=== PATIENT | female | born 1940 | race Caucasian/White ===

== ENCOUNTER 2016-08-30 20:17 | Inpatient (IN) | payer MEDICARE, OTHER ==
[~2016-08-30] VITALS: Ht 160 cm; Wt 100.4 kg
--- NOTE | ~2016-08-30 | EKG ---
[place], [place] ELECTROCARDIOGRAM REPORT NAME: CATHY VARGAS UNIT #: [id number] ROOM: 420 DOCTOR: HENRY DALEY MD BIRTHDATE: [birth year] DOS: 08/30/2016 TIME: 2044 hours. Normal sinus rhythm at 64 beats per minute. First degree heart block. Complete right bundle branch block with left anterior hemiblock. An abnormal ECG. No previous tracing is available for comparison. HENRY DALEY MD CM:EKGRPT:ELECTROCARDIOGRAM REPORT 1857 10 HENRY DALEY MD
--- NOTE | ~2016-08-30 | CON ---
[place], [place] REPORT OF CONSULTATION NAME: CATHY VARGAS UNIT #: [id number] ROOM: 420 DOCTOR: HENRY DALEY MD BIRTHDATE: [birth year] DOS: 08/31/2016 HISTORY OF PRESENT ILLNESS: The patient is a 75-year-old [place] woman with a history of paroxysmal atrial fibrillation, chronic kidney disease, heart failure, COPD, GERD, urinary tract infections, colon cancer who has had hysterectomy, cataract surgery, cholecystectomy. She has a bioprosthetic aortic valve. She was sitting and watching the now Presidential inauguration and could not think of the President's name or his 's name and she wanted to say something else and could not come up with it and she would write down something and lost her thought. She had slight weakness in the right arm and the feeling eventually resolved. I was asked to evaluate from cardiac standpoint. The patient did not have any palpitations, dizziness, any loss of consciousness. No chest pain or heaviness in the chest. She has had swelling in the legs for some time now. In the past, she does not recall any orthopnea, only some exertional shortness of breath. No nausea, abdominal pain or blood in the stools. She has had urinary frequency and took medication for this. HOME MEDICATIONS: Include Combivent, albuterol aerosol treatments, Dulera, alprazolam 0.5 mg daily, calcium with vitamin D, carvedilol 6.25 mg b.i.d., cholecalciferol daily, cyclobenzaprine daily, and furosemide 20 mg daily. PHYSICAL EXAMINATION: GENERAL: The patient is very pleasant. She seemed to be alert and giving me a very detailed history. Complexion is normal. There is no finger clubbing. VITAL SIGNS: Pulse is regular at 72 beats per minute, blood pressure 168/58. Most of the systolic blood pressures have been modestly elevated, the highest being 189 and 202 at home. NECK: Normal JVP. No bruits. HEART: There are systolic sounds in the neck, but this is referred murmur from the bioprosthetic aortic valve. There is a grade 2/6 systolic murmur over the aortic area with fairly normal sounding aortic component of the second heart sound. EXTREMITIES: She has 2 to 3+ pedal edema, 1+ pretibial edema. RESPIRATORY: Auscultation of lungs reveal very few crackles in the lower zones. LABORATORY DATA: Chemistry panel is essentially normal. Creatinine 0.82. EGFR is greater than 60. INR 2.7. Hemoglobin 8.6 g/dL. Troponin I levels were normal. DIAGNOSTIC STUDIES: An ECG showed normal sinus rhythm at 64 beats per minute, complete right bundle-branch block and left anterior hemiblock. IMPRESSION: This elderly lady with a history of atrial fibrillation and essential hypertension, had some neurological symptoms, which resolved. CT scan did not show any acute event. The patient may have had a transient ischemic attack or perhaps metabolic problems. [place], [place] REPORT OF CONSULTATION NAME: CATHY VARGAS UNIT #: [id number] ROOM: 420 DOCTOR: HENRY DALEY MD BIRTHDATE: [birth year] She is in normal sinus rhythm and is adequately anticoagulated. Hypertension is somewhat out of control, carvedilol 6.25 mg b.i.d. will be continued, dose should not be increased because her heart rate is around 60-64 beats per minute. I have added lisinopril 5 mg daily and this should tame her blood pressure adequately. I thank you for this consult. HENRY DALEY MD CM:CONSTR:REPORT OF CONSULTATION 2054 10/03/16 1525 interface
[~2016-08-30 20:17] MED LIST: ACCOLATE20 MG PO; ALPHA LIPOIC A200 MG PO; ANTACID PO; APA PO; CENTRUM SILVER1 TA1 PO; CIPROFLOXACIN250 MG PO; CITRACAL + D 311 TAB PO; CITRACAL SOFT1 EACH PO; COMBIVENT1 AR1 IH; COREG3.125 MG PO; COREG6.25 MG PO; COUMADIN3 M1 PO; DERMACINRX5000 UNIT PO; DULE1ARO1 INH; DULER200 INH; FLEXERIL10 MG PO; GAVISCON ES TA1 EACH PO; GAVISCON REGULA1 CT1 PO; GAVISCON500 MG PO; HYDROCODONE BIT1 T11 PO; HYDROCODONE PO; HYDROCODONE-APA1 TA1 PO; IRON 100-VITAM1 EACH PO; K-DUR 1010 MEQ PO; LASIX20 MG PO; LASIX40 MG PO; LEVOFLOXACIN500 MG PO; LIPITOR20 MG PO; LOPRESSOR25 MG PO; MOTRIN800 MG PO; OMEPRAZOLE20 MG PO; POTASSIUM CHLO10 ME2 PO; POTASSIUM CHLO20 ME3 PO; VENTOLIN 02.5 MG/3 M INH; VERAPAMIL240 MG PO; VITAMIN D31000 I2 PO; WARFARIN SOD5 MG PO; XANAX0.25 MG PO; XANAX0.5 MG PO; XARE20MG PO; ZOFRAN ODT4 MG SL
[2016-08-30 20:20] VITALS: BP 198/87
[2016-08-30 20:37] LABS: BASO # 0.1 10*3/uL (0.0-0.1); BASO % 0.7 % (0.0-1.0); EOS # 0.2 10*3/uL (0.0-0.4); EOS % 2.6 % (1.0-4.0); HEMATOCRIT 31.1 % (37.0-47.0); HEMOGLOBIN 10.2 g/dl (12.0-16.0); LYMPH # 2.1 10*3/uL (1.3-4.4); LYMPH % 24.9 % (27.0-41.0); MEAN CELL VOLUME 92.3 fl (81.0-99.0); MEAN CORPUSCULAR HGB 30.3 pg (27.0-31.0); MEAN CORPUSCULAR HGB CONC 32.8 g/dl (33.0-37.0); MEAN PLATELET VOLUME 9.9 fl (9.6-12.3); MONO # 0.8 10*3/uL (0.1-1.0); MONO % 9.9 % (3.0-9.0); NEUT # 5.2 10*3/uL (2.3-7.9); NEUT % 61.8 % (47.0-73.0); PLATELET COUNT AUTOMATED 287 10*3/uL (130-400); RED BLOOD COUNT 3.37 10*6/uL (4.10-5.10); RED CELL DISTRI WIDTH 12.5 % (0-14.5); WHITE BLOOD COUNT 8.4 10*3/uL (4.8-10.8)
[2016-08-30 20:50] LABS: INTERNATIONAL NORM RATIO 2.4 (2.0-3.5); PROTHROMBIN TIME 26.3 SECONDS (9.0-12.4)
[2016-08-30 20:54] LABS: ALBUMIN 3.3 gm/dl (3.1-4.5); ALKALINE PHOSPHATASE 100 U/L (45-117); BILIRUBIN, TOTAL 0.2 mg/dl (0.2-1.0); BUN 13 mg/dl (7-24); C-REACTIVE PROTEIN 0.97 MG/DL (0-0.3); CARBON DIOXIDE 32 mmol/L (21-32); CHLORIDE 99 mmol/L (98-107); CKMB 1.8 ng/ml (0.5-3.6); CPK 110 U/L (26-192); EST GLOM FILT AFRICAN AMERICAN > 60 ml/min; GLUCOSE 105 mg/dL (65-99); POTASSIUM 4.5 mmol/L (3.5-5.1); SGOT/AST 21 IU/L (3-35); SGPT/ALT 21 U/L (12-78); SODIUM 138 mmol/L (136-145); TOTAL PROTEIN 7.1 gm/dL (6.4-8.2)
[2016-08-30 20:58] VITALS: BP 160/74
[2016-08-30 21:02] LABS: TROPONIN I < 0.015 ng/ml (<0.5)
[2016-08-30 21:45] LABS: BILIRUBIN NEGATIVE (NEGATIVE); BLOOD 2+ (NEGATIVE); CLARITY SL CLOUDY (CLEAR); COLOR YELLOW (YELLOW); GLUCOSE NEGATIVE (NEGATIVE); KETONE NEGATIVE (NEGATIVE); LEUKO ESTERASE 2+ (NEGATIVE); NITRITE NEGATIVE (NEGATIVE); PH 5.5 (5.0-9.0); PROTEIN NEGATIVE (NEGATIVE); SPECIFIC GRAVITY 1.025 (1.005-1.030); UROBILINOGEN 0.2 E.U./dl (0.2-1.0)
[2016-08-30] MEDS ORDERED: LASIX20 MG PO (21:52)
[2016-08-30] MEDS ORDERED: KLOR-CON 1010 ME1 PO (21:53)
[2016-08-30 21:59] LABS: BACTERIA 4+; EPITHELIAL CELLS 0-2; URINE REFLEX COMMENT YES (NO); WBC TNTC wbc/hpf (0-5)
[2016-08-30 22:07] VITALS: BP 141/48
[2016-08-30 23:05] VITALS: BP 115/76
[2016-08-31] VITALS (7 sets, daily range): BP systolic 122–189; BP diastolic 51–82
[2016-08-31 06:44] LABS: BASO % 0.5 % (0.0-1.0); EOS # 0.2 10*3/uL (0.0-0.4); HEMATOCRIT 26.8 % (37.0-47.0); HEMOGLOBIN 8.6 g/dl (12.0-16.0); LYMPH # 1.6 10*3/uL (1.3-4.4); LYMPH % 28.1 % (27.0-41.0); MEAN CELL VOLUME 92.7 fl (81.0-99.0); MEAN CORPUSCULAR HGB 29.8 pg (27.0-31.0); MEAN CORPUSCULAR HGB CONC 32.1 g/dl (33.0-37.0); MEAN PLATELET VOLUME 9.9 fl (9.6-12.3); MONO # 0.6 10*3/uL (0.1-1.0); MONO % 10.2 % (3.0-9.0); NEUT # 3.3 10*3/uL (2.3-7.9); NEUT % 57.8 % (47.0-73.0); PLATELET COUNT AUTOMATED 229 10*3/uL (130-400); RED BLOOD COUNT 2.89 10*6/uL (4.10-5.10); RED CELL DISTRI WIDTH 12.6 % (0-14.5); WHITE BLOOD COUNT 5.7 10*3/uL (4.8-10.8)
[2016-08-31 07:03] LABS: INTERNATIONAL NORM RATIO 2.7 (2.0-3.5); PROTHROMBIN TIME 29.7 SECONDS (9.0-12.4)
[2016-08-31 07:12] LABS: BUN 11 mg/dl (7-24); CARBON DIOXIDE 31 mmol/L (21-32); CHLORIDE 102 mmol/L (98-107); CHOLESTEROL 168 mg/dL (<200); EST GLOM FILT AFRICAN AMERICAN > 60 ml/min; FREE T4 1.34 ng/dl (0.76-1.46); GLUCOSE 89 mg/dL (65-99); HDL CHOLESTEROL 64 mg/dl (40-60); LDL CHOLESTEROL 89 mg/dL (9-159); MAGNESIUM 2.1 mg/dL (1.5-2.1); POTASSIUM 3.7 mmol/L (3.5-5.1); SODIUM 139 mmol/L (136-145); TRIGLYCERIDES 74 mg/dl (<150); VLDL CHOLESTEROL 15 mg/dL (6-40)
[2016-08-31 07:18] LABS: HEMOGLOBIN A1c 5.5 % (4.8-5.6)
[2016-08-31 07:50] LABS: FOLIC ACID 8.74 ng/mL (>5.38)
[2016-09-26] MEDS ORDERED: LOSARTAN POTASS25 M1 PO ×2 (15:32→17:52)
[2016-09-26] MEDS ORDERED: AMOX/CLAV POT 81 TAB PO (15:32)
[2016-09-26] MEDS ORDERED: CYCLOBENZAPRINE5 M3 PO (17:41)
[2016-09-30] MEDS ORDERED: ZYVOX600 MG PO (13:26)
== END 2016-08-31 23:57 | disposition left against medical advice (07) | DRG 689 ==
LOC: ED 20:17 → EDHOLD 22:29 → 4E 23:00
PROVIDERS: Emergency Medicine; Internal Medicine
DX: N39.0 Urinary tract infection, site not specified (principal); G93.40 Encephalopathy, unspecified; E44.0 Moderate protein-calorie malnutrition; I48.0 Paroxysmal atrial fibrillation; I11.0 Hypertensive heart disease with heart failure; I50.32 Chronic diastolic (congestive) heart failure; J44.9 Chronic obstructive pulmonary disease, unspecified; D68.59 Other primary thrombophilia; I67.82 Cerebral ischemia; E66.9 Obesity, unspecified; I16.1 Hypertensive emergency; D72.810 Lymphocytopenia; R73.9 Hyperglycemia, unspecified; G44.1 Vascular headache, not elsewhere classified; R70.0 Elevated erythrocyte sedimentation rate; D64.9 Anemia, unspecified; K21.9 Gastro-esophageal reflux disease without esophagitis; F41.9 Anxiety disorder, unspecified; Z88.2 Allergy status to sulfonamides; Z88.5 Allergy status to narcotic agent; Z88.8 Allergy status to other drugs, medicaments and biological substances; Z88.1 Allergy status to other antibiotic agents; Z90.710 Acquired absence of both cervix and uterus; Z90.49 Acquired absence of other specified parts of digestive tract; Z98.42 Cataract extraction status, left eye; Z98.41 Cataract extraction status, right eye; Z95.1 Presence of aortocoronary bypass graft; Z79.899 Other long term (current) drug therapy; Z79.01 Long term (current) use of anticoagulants; Z82.49 Family history of ischemic heart disease and other diseases of the circulatory system; Z80.0 Family history of malignant neoplasm of digestive organs; Z68.39 Body mass index [BMI] 39.0-39.9, adult

== ENCOUNTER 2016-09-07 13:08 | Inpatient (IN) | payer MEDICARE, OTHER ==
[~2016-09-07] VITALS: Ht 160 cm; Wt 99.3 kg
--- NOTE | ~2016-09-07 | EKG ---
[place], [place] ELECTROCARDIOGRAM REPORT NAME: CATHY VARGAS UNIT #: [id number] ROOM: 402 DOCTOR: HENRY DALEY MD BIRTHDATE: [birth year] DOS: 09/07/2016 TIME: 1400 hours. 1. Atrial fibrillation with a ventricular rate of 73 beats per minute. 2. Incomplete right bundle-branch block with left anterior hemiblock. 3. An abnormal ECG. 4. No previous tracing is available for comparison. HENRY DALEY MD CM:EKGRPT:ELECTROCARDIOGRAM REPORT 05 33 HENRY DALEY MD
[~2016-09-07 13:08] MED LIST changes: +KLOR-CON 1010 ME1 PO
[2016-09-07 13:47] VITALS: BP 186/70
[2016-09-07] MEDS ORDERED: CENTRUM SILVER1 EACH PO (13:52)
[2016-09-07 14:10] LABS: INTERNATIONAL NORM RATIO 1.5 (2.0-3.5); PROTHROMBIN TIME 16.1 SECONDS (9.0-12.4)
[2016-09-07 14:19] LABS: ALBUMIN 3.2 gm/dl (3.1-4.5); ALKALINE PHOSPHATASE 75 U/L (45-117); BILIRUBIN, TOTAL 0.3 mg/dl (0.2-1.0); BUN 13 mg/dl (7-24); CARBON DIOXIDE 33 mmol/L (21-32); CHLORIDE 99 mmol/L (98-107); EST GLOM FILT AFRICAN AMERICAN > 60 ml/min; GLUCOSE 99 mg/dL (65-99); MAGNESIUM 2.1 mg/dL (1.5-2.1); POTASSIUM 3.6 mmol/L (3.5-5.1); SGOT/AST 12 IU/L (3-35); SGPT/ALT 20 U/L (12-78); SODIUM 141 mmol/L (136-145); TOTAL PROTEIN 7.1 gm/dL (6.4-8.2); TROPONIN I 0.025 ng/ml (<0.5)
[2016-09-07 14:22] LABS: BASO # 0.1 10*3/uL (0.0-0.1); BASO % 0.8 % (0.0-1.0); EOS # 0.1 10*3/uL (0.0-0.4); EOS % 1.8 % (1.0-4.0); HEMOGLOBIN 10.2 g/dl (12.0-16.0); LYMPH % 25.3 % (27.0-41.0); MEAN CELL VOLUME 92.2 fl (81.0-99.0); MEAN CORPUSCULAR HGB 29.4 pg (27.0-31.0); MEAN CORPUSCULAR HGB CONC 31.9 g/dl (33.0-37.0); MEAN PLATELET VOLUME 9.2 fl (9.6-12.3); MONO # 0.7 10*3/uL (0.1-1.0); MONO % 8.9 % (3.0-9.0); NEUT # 4.9 10*3/uL (2.3-7.9); NEUT % 62.9 % (47.0-73.0); PLATELET COUNT AUTOMATED 336 10*3/uL (130-400); RED BLOOD COUNT 3.47 10*6/uL (4.10-5.10); RED CELL DISTRI WIDTH 12.6 % (0-14.5); WHITE BLOOD COUNT 7.8 10*3/uL (4.8-10.8)
[2016-09-07 15:40] VITALS: BP 152/63
[2016-09-07 16:00] VITALS: BP 156/56
[2016-09-07 16:15] VITALS: BP 168/64
[2016-09-07 18:31] LABS: CKMB 1.8 ng/ml (0.5-3.6); TROPONIN I 0.028 ng/ml (<0.5)
[2016-09-07 19:26] LABS: BILIRUBIN 1+ (NEGATIVE); BLOOD TRACE-INTACT (NEGATIVE); CLARITY SL CLOUDY (CLEAR); COLOR YELLOW (YELLOW); GLUCOSE NEGATIVE (NEGATIVE); KETONE TRACE (NEGATIVE); LEUKO ESTERASE 2+ (NEGATIVE); NITRITE NEGATIVE (NEGATIVE); PROTEIN TRACE (NEGATIVE); UROBILINOGEN 0.2 E.U./dl (0.2-1.0)
[2016-09-07 19:36] LABS: WBC TNTC wbc/hpf (0-5)
[2016-09-07 19:37] LABS: URINE REFLEX COMMENT YES (NO)
[2016-09-07 20:00] VITALS: BP 136/89
[2016-09-08] VITALS: BP 160/81
[2016-09-08 00:54] LABS: CKMB 1.6 ng/ml (0.5-3.6); TROPONIN I 0.031 ng/ml (<0.5)
[2016-09-08 06:24] LABS: BASO # 0.1 10*3/uL (0.0-0.1); BASO % 0.8 % (0.0-1.0); EOS # 0.1 10*3/uL (0.0-0.4); EOS % 1.8 % (1.0-4.0); HEMATOCRIT 28.3 % (37.0-47.0); HEMOGLOBIN 9.2 g/dl (12.0-16.0); LYMPH # 2.2 10*3/uL (1.3-4.4); LYMPH % 30.5 % (27.0-41.0); MEAN CELL VOLUME 91.3 fl (81.0-99.0); MEAN CORPUSCULAR HGB 29.7 pg (27.0-31.0); MEAN CORPUSCULAR HGB CONC 32.5 g/dl (33.0-37.0); MEAN PLATELET VOLUME 8.9 fl (9.6-12.3); MONO # 0.7 10*3/uL (0.1-1.0); MONO % 9.6 % (3.0-9.0); NEUT # 4.1 10*3/uL (2.3-7.9); NEUT % 57.2 % (47.0-73.0); PLATELET COUNT AUTOMATED 271 10*3/uL (130-400); RED CELL DISTRI WIDTH 12.7 % (0-14.5); WHITE BLOOD COUNT 7.1 10*3/uL (4.8-10.8)
[2016-09-08 06:28] LABS: INTERNATIONAL NORM RATIO 1.5 (2.0-3.5); PROTHROMBIN TIME 16.1 SECONDS (9.0-12.4)
[2016-09-08 06:36] LABS: CKMB 1.4 ng/ml (0.5-3.6); TROPONIN I 0.023 ng/ml (<0.5)
[2016-09-08 06:53] LABS: ALKALINE PHOSPHATASE 64 U/L (45-117); BILIRUBIN, TOTAL 0.3 mg/dl (0.2-1.0); BUN 16 mg/dl (7-24); CARBON DIOXIDE 32 mmol/L (21-32); CHLORIDE 98 mmol/L (98-107); CHOLESTEROL 173 mg/dL (<200); EST GLOM FILT AFRICAN AMERICAN > 60 ml/min; FREE T4 1.35 ng/dl (0.76-1.46); GLUCOSE 93 mg/dL (65-99); HDL CHOLESTEROL 66 mg/dl (40-60); LDL CHOLESTEROL 91 mg/dL (9-159); MAGNESIUM 2.5 mg/dL (1.5-2.1); PHOSPHOROUS 3.9 mg/dL (2.5-4.9); POTASSIUM 3.9 mmol/L (3.5-5.1); SGOT/AST 14 IU/L (3-35); SGPT/ALT 15 U/L (12-78); SODIUM 138 mmol/L (136-145); TOTAL PROTEIN 6.3 gm/dL (6.4-8.2); TRIGLYCERIDES 81 mg/dl (<150); VLDL CHOLESTEROL 16 mg/dL (6-40)
[2016-09-08 07:38] LABS: VITAMIN D, 25-HYDROXY 52.1 ng/mL (30-100)
[2016-09-08 07:39] LABS: FOLIC ACID 8.61 ng/mL (>5.38)
[2016-09-08 07:58] LABS: HEMOGLOBIN A1c 5.2 % (4.8-5.6)
[2016-09-08 08:00] VITALS: BP 147/73
[2016-09-08] MEDS ORDERED: COUMADIN4 M2 PO (10:32)
[2016-09-08] MEDS ORDERED: ASPIRIN CHEWABL81 MG PO (10:37)
[2016-09-08 12:00] VITALS: BP 137/57
[2016-09-26] MEDS ORDERED: AMOX/CLAV POT 81 TAB PO (15:32)
[2016-09-26] MEDS ORDERED: LOSARTAN POTASS25 M1 PO ×2 (15:32→17:52)
[2016-09-26] MEDS ORDERED: CYCLOBENZAPRINE5 M3 PO (17:41)
[2016-09-30] MEDS ORDERED: ZYVOX600 MG PO (13:26)
== END 2016-09-08 16:09 | disposition home or self-care (01) | DRG 69 ==
LOC: ED 13:08 → EDHOLD 14:54 → 4E 15:35
PROVIDERS: Hospitalist; Student in an Organized Health Care Education/Training Program
DX: G45.9 Transient cerebral ischemic attack, unspecified (principal); E44.0 Moderate protein-calorie malnutrition; D68.59 Other primary thrombophilia; I50.32 Chronic diastolic (congestive) heart failure; J44.9 Chronic obstructive pulmonary disease, unspecified; I48.0 Paroxysmal atrial fibrillation; N39.0 Urinary tract infection, site not specified; I13.0 Hypertensive heart and chronic kidney disease with heart failure and stage 1 through stage 4 chronic kidney disease, or unspecified chronic kidney disease; E66.9 Obesity, unspecified; I16.1 Hypertensive emergency; K21.9 Gastro-esophageal reflux disease without esophagitis; F41.0 Panic disorder [episodic paroxysmal anxiety]; F41.9 Anxiety disorder, unspecified; K57.90 Diverticulosis of intestine, part unspecified, without perforation or abscess without bleeding; D64.9 Anemia, unspecified; N18.9 Chronic kidney disease, unspecified; Z85.038 Personal history of other malignant neoplasm of large intestine; Z90.49 Acquired absence of other specified parts of digestive tract; Z90.710 Acquired absence of both cervix and uterus; Z98.49 Cataract extraction status, unspecified eye; Z82.49 Family history of ischemic heart disease and other diseases of the circulatory system; Z88.8 Allergy status to other drugs, medicaments and biological substances; Z88.2 Allergy status to sulfonamides; Z79.899 Other long term (current) drug therapy; Z79.01 Long term (current) use of anticoagulants; Z80.0 Family history of malignant neoplasm of digestive organs; Z98.890 Other specified postprocedural states; Z68.39 Body mass index [BMI] 39.0-39.9, adult

== ENCOUNTER → 2017-02-24 | Outpatient (CLI) | payer MEDICARE, OTHER ==
[~2017-02-24] MED LIST changes: +AMOX/CLAV POT 81 TAB PO; +ASPIRIN CHEWABL81 MG PO; +CENTRUM SILVER1 EACH PO; +COUMADIN4 M2 PO; +CYCLOBENZAPRINE5 M3 PO; +LOSARTAN POTASS25 M1 PO; +ZYVOX600 MG PO
[2017-02-24 08:48] LABS: BASO # 0.1 10*3/uL (0.0-0.1); BASO % 0.8 % (0.0-1.0); EOS # 0.2 10*3/uL (0.0-0.4); EOS % 3.1 % (1.0-4.0); HEMATOCRIT 29.2 % (37.0-47.0); HEMOGLOBIN 9.4 g/dl (12.0-16.0); LYMPH # 1.9 10*3/uL (1.3-4.4); LYMPH % 29.9 % (27.0-41.0); MEAN CELL VOLUME 91.3 fl (81.0-99.0); MEAN CORPUSCULAR HGB 29.4 pg (27.0-31.0); MEAN CORPUSCULAR HGB CONC 32.2 g/dl (33.0-37.0); MONO # 0.5 10*3/uL (0.1-1.0); MONO % 7.6 % (3.0-9.0); NEUT # 3.8 10*3/uL (2.3-7.9); NEUT % 58.3 % (47.0-73.0); PLATELET COUNT AUTOMATED 279 10*3/uL (130-400); RED CELL DISTRI WIDTH 12.4 % (0-14.5); WHITE BLOOD COUNT 6.5 10*3/uL (4.8-10.8)
[2017-02-24 09:13] LABS: ALBUMIN 2.9 gm/dl (3.1-4.5); ALKALINE PHOSPHATASE 69 U/L (45-117); BILIRUBIN, DIRECT < 0.1 mg/dL (0.0-0.2); BILIRUBIN, TOTAL 0.3 mg/dl (0.2-1.0); BUN 10 mg/dl (7-24); CARBON DIOXIDE 31 mmol/L (21-32); CHLORIDE 100 mmol/L (98-107); EST GLOM FILT AFRICAN AMERICAN > 60 ml/min; GLUCOSE 85 mg/dL (65-99); IRON 52 ug/dL (50-170); POTASSIUM 4.3 mmol/L (3.5-5.1); SGOT/AST 17 IU/L (3-35); SGPT/ALT 16 U/L (12-78); SODIUM 136 mmol/L (136-145)
== END | disposition home or self-care (01) ==
LOC: LAB 07:57
PROVIDERS: Family Medicine
DX: D64.9 Anemia, unspecified (principal)

== ENCOUNTER → 2017-03-10 | Outpatient (CLI) | payer MEDICARE, OTHER ==
[2017-03-10 07:57] LABS: BASO # 0.1 10*3/uL (0.0-0.1); BASO % 0.5 % (0.0-1.0); EOS # 0.2 10*3/uL (0.0-0.4); EOS % 2.4 % (1.0-4.0); HEMATOCRIT 28.9 % (37.0-47.0); HEMOGLOBIN 9.4 g/dl (12.0-16.0); LYMPH # 1.8 10*3/uL (1.3-4.4); LYMPH % 19.3 % (27.0-41.0); MEAN CELL VOLUME 90.9 fl (81.0-99.0); MEAN CORPUSCULAR HGB 29.6 pg (27.0-31.0); MEAN CORPUSCULAR HGB CONC 32.5 g/dl (33.0-37.0); MEAN PLATELET VOLUME 9.1 fl (9.6-12.3); MONO # 0.8 10*3/uL (0.1-1.0); MONO % 8.7 % (3.0-9.0); NEUT # 6.5 10*3/uL (2.3-7.9); NEUT % 68.8 % (47.0-73.0); PLATELET COUNT AUTOMATED 316 10*3/uL (130-400); RED BLOOD COUNT 3.18 10*6/uL (4.10-5.10); RED CELL DISTRI WIDTH 12.1 % (0-14.5); WHITE BLOOD COUNT 9.5 10*3/uL (4.8-10.8)
== END | disposition home or self-care (01) ==
LOC: LAB 07:35
PROVIDERS: Internal Medicine Hematology & Oncology
DX: N18.9 Chronic kidney disease, unspecified (principal); D63.8 Anemia in other chronic diseases classified elsewhere

== ENCOUNTER → 2017-03-11 | Outpatient (CLI) | payer MEDICARE, OTHER | END | disposition home or self-care (01) | LOC: CARD 02:09 | DX: I10 Essential (primary) hypertension (principal); Q21.1 Atrial septal defect ==

== ENCOUNTER → 2017-04-15 | Outpatient (CLI) | payer MEDICARE, OTHER | END | disposition home or self-care (01) | LOC: US 04-11 12:30 | DX: I10 Essential (primary) hypertension (principal); I65.23 Occlusion and stenosis of bilateral carotid arteries ==

== ENCOUNTER → 2017-07-14 | Outpatient (CLI) | payer MEDICARE, OTHER ==
[2017-07-14 07:50] LABS: BASO # 0.1 10*3/uL (0.0-0.1); BASO % 0.8 % (0.0-1.0); EOS # 0.3 10*3/uL (0.0-0.4); EOS % 3.4 % (1.0-4.0); HEMATOCRIT 27.4 % (37.0-47.0); HEMOGLOBIN 8.6 g/dl (12.0-16.0); LYMPH # 2.3 10*3/uL (1.3-4.4); LYMPH % 28.9 % (27.0-41.0); MEAN CELL VOLUME 91.9 fl (81.0-99.0); MEAN CORPUSCULAR HGB 28.9 pg (27.0-31.0); MEAN CORPUSCULAR HGB CONC 31.4 g/dl (33.0-37.0); MEAN PLATELET VOLUME 9.1 fl (9.6-12.3); MONO # 0.7 10*3/uL (0.1-1.0); MONO % 8.3 % (3.0-9.0); NEUT # 4.6 10*3/uL (2.3-7.9); NEUT % 58.3 % (47.0-73.0); PLATELET COUNT AUTOMATED 269 10*3/uL (130-400); RED BLOOD COUNT 2.98 10*6/uL (4.10-5.10); RED CELL DISTRI WIDTH 13.2 % (0-14.5); WHITE BLOOD COUNT 7.8 10*3/uL (4.8-10.8)
== END | disposition home or self-care (01) ==
LOC: LAB 07:26
PROVIDERS: Family Medicine
DX: D64.9 Anemia, unspecified (principal)

== ENCOUNTER → 2017-07-28 | Outpatient (CLI) | payer MEDICARE, OTHER ==
[2017-07-28 08:15] LABS: BASO % 0.6 % (0.0-1.0); EOS # 0.2 10*3/uL (0.0-0.4); EOS % 3.1 % (1.0-4.0); HEMATOCRIT 26.3 % (37.0-47.0); HEMOGLOBIN 8.5 g/dl (12.0-16.0); LYMPH # 2.2 10*3/uL (1.3-4.4); LYMPH % 34.4 % (27.0-41.0); MEAN CELL VOLUME 89.8 fl (81.0-99.0); MEAN CORPUSCULAR HGB CONC 32.3 g/dl (33.0-37.0); MEAN PLATELET VOLUME 9.6 fl (9.6-12.3); MONO # 0.6 10*3/uL (0.1-1.0); MONO % 8.7 % (3.0-9.0); NEUT # 3.4 10*3/uL (2.3-7.9); PLATELET COUNT AUTOMATED 274 10*3/uL (130-400); RED BLOOD COUNT 2.93 10*6/uL (4.10-5.10); RED CELL DISTRI WIDTH 13.2 % (0-14.5); WHITE BLOOD COUNT 6.5 10*3/uL (4.8-10.8)
[2017-07-28 08:56] LABS: BUN 12 mg/dl (7-24); CHLORIDE 98 mmol/L (98-107); POTASSIUM 4.5 mmol/L (3.5-5.1); SODIUM 135 mmol/L (136-145)
[2017-07-28 08:58] LABS: CREATININE 0.92 mg/dL (0.55-1.02)
== END ==
LOC: LAB 07:14
PROVIDERS: Family Medicine
DX: R60.9 Edema, unspecified (principal)

== ENCOUNTER → 2017-09-15 | Outpatient (CLI) | payer MEDICARE, OTHER ==
[2017-09-15 08:16] LABS: BASO # 0.1 10*3/uL (0.0-0.1); BASO % 0.6 % (0.0-1.0); EOS # 0.2 10*3/uL (0.0-0.4); EOS % 2.4 % (1.0-4.0); HEMATOCRIT 28.1 % (37.0-47.0); HEMOGLOBIN 8.9 g/dl (12.0-16.0); LYMPH # 2.2 10*3/uL (1.3-4.4); LYMPH % 28.5 % (27.0-41.0); MEAN CELL VOLUME 91.8 fl (81.0-99.0); MEAN CORPUSCULAR HGB 29.1 pg (27.0-31.0); MEAN CORPUSCULAR HGB CONC 31.7 g/dl (33.0-37.0); MEAN PLATELET VOLUME 9.6 fl (9.6-12.3); MONO # 0.6 10*3/uL (0.1-1.0); MONO % 7.9 % (3.0-9.0); NEUT # 4.7 10*3/uL (2.3-7.9); NEUT % 60.1 % (47.0-73.0); PLATELET COUNT AUTOMATED 299 10*3/uL (130-400); RED BLOOD COUNT 3.06 10*6/uL (4.10-5.10); RED CELL DISTRI WIDTH 13.3 % (0-14.5); WHITE BLOOD COUNT 7.8 10*3/uL (4.8-10.8)
[2017-09-15 08:50] LABS: ALBUMIN 3.1 gm/dl (3.1-4.5); ALKALINE PHOSPHATASE 70 U/L (45-117); BILIRUBIN, DIRECT < 0.1 mg/dL (0.0-0.2); CHLORIDE 102 mmol/L (98-107); POTASSIUM 3.8 mmol/L (3.5-5.1); SGOT/AST 14 IU/L (3-35); SGPT/ALT 19 U/L (12-78); SODIUM 139 mmol/L (136-145); TOTAL PROTEIN 7.2 gm/dL (6.4-8.2)
== END | disposition home or self-care (01) ==
LOC: LAB 07:40
PROVIDERS: Family Medicine
DX: I10 Essential (primary) hypertension (principal)

== ENCOUNTER → 2017-10-13 | Outpatient (CLI) | payer MEDICARE, OTHER ==
[2017-10-13 08:37] LABS: BUN 13 mg/dl (7-24); CHLORIDE 102 mmol/L (98-107); POTASSIUM 3.9 mmol/L (3.5-5.1); SODIUM 140 mmol/L (136-145)
== END | disposition home or self-care (01) ==
LOC: LAB 07:40
PROVIDERS: Internal Medicine Cardiovascular Disease
DX: R60.0 Localized edema (principal)

== ENCOUNTER → 2017-11-17 | Outpatient (CLI) | payer MEDICARE, OTHER ==
[2017-11-17 08:03] LABS: BASO # 0.1 10*3/uL (0.0-0.1); BASO % 0.7 % (0.0-1.0); EOS # 0.2 10*3/uL (0.0-0.4); HEMATOCRIT 27.1 % (37.0-47.0); HEMOGLOBIN 8.5 g/dl (12.0-16.0); LYMPH # 2.3 10*3/uL (1.3-4.4); LYMPH % 28.6 % (27.0-41.0); MEAN CELL VOLUME 92.8 fl (81.0-99.0); MEAN CORPUSCULAR HGB 29.1 pg (27.0-31.0); MEAN CORPUSCULAR HGB CONC 31.4 g/dl (33.0-37.0); MEAN PLATELET VOLUME 9.5 fl (9.6-12.3); MONO # 0.7 10*3/uL (0.1-1.0); MONO % 8.2 % (3.0-9.0); NEUT # 4.9 10*3/uL (2.3-7.9); NEUT % 60.1 % (47.0-73.0); PLATELET COUNT AUTOMATED 255 10*3/uL (130-400); RED BLOOD COUNT 2.92 10*6/uL (4.10-5.10); RED CELL DISTRI WIDTH 12.9 % (0-14.5); WHITE BLOOD COUNT 8.2 10*3/uL (4.8-10.8)
[2017-11-17 08:24] LABS: ALBUMIN 3.1 gm/dl (3.1-4.5); BILIRUBIN, DIRECT < 0.1 mg/dL (0.0-0.2); BUN 18 mg/dl (7-24); CHLORIDE 102 mmol/L (98-107); CREATININE 1.04 mg/dL (0.55-1.02); POTASSIUM 4.4 mmol/L (3.5-5.1); SGOT/AST 20 IU/L (3-35); SODIUM 139 mmol/L (136-145)
[2017-11-17 08:29] LABS: ALKALINE PHOSPHATASE 75 U/L (45-117); SGPT/ALT 19 U/L (12-78)
== END | disposition home or self-care (01) ==
LOC: LAB 07:19 → EDSTATUS 07:19
PROVIDERS: Family Medicine
DX: R60.9 Edema, unspecified (principal)

== ENCOUNTER → 2018-03-02 | Outpatient (CLI) | payer MEDICARE, OTHER ==
[2018-03-02 15:17] LABS: BASO # 0.1 10*3/uL (0.0-0.1); BASO % 0.7 % (0.0-1.0); EOS # 0.2 10*3/uL (0.0-0.4); EOS % 2.2 % (1.0-4.0); HEMATOCRIT 25.9 % (37.0-47.0); HEMOGLOBIN 8.4 g/dl (12.0-16.0); LYMPH # 2.2 10*3/uL (1.3-4.4); LYMPH % 29.2 % (27.0-41.0); MEAN CELL VOLUME 90.6 fl (81.0-99.0); MEAN CORPUSCULAR HGB 29.4 pg (27.0-31.0); MEAN CORPUSCULAR HGB CONC 32.4 g/dl (33.0-37.0); MEAN PLATELET VOLUME 8.7 fl (9.6-12.3); MONO # 0.6 10*3/uL (0.1-1.0); MONO % 8.4 % (3.0-9.0); NEUT # 4.5 10*3/uL (2.3-7.9); NEUT % 59.2 % (47.0-73.0); PLATELET COUNT AUTOMATED 277 10*3/uL (130-400); RED BLOOD COUNT 2.86 10*6/uL (4.10-5.10); RED CELL DISTRI WIDTH 12.7 % (0-14.5); WHITE BLOOD COUNT 7.6 10*3/uL (4.8-10.8)
[2018-03-02 15:44] LABS: ALBUMIN 3.1 gm/dl (3.1-4.5); ALKALINE PHOSPHATASE 71 U/L (45-117); BILIRUBIN, DIRECT < 0.1 mg/dL (0.0-0.2); BUN 13 mg/dl (7-24); CHLORIDE 103 mmol/L (98-107); CREATININE 1.15 mg/dL (0.55-1.02); POTASSIUM 4.1 mmol/L (3.5-5.1); SGOT/AST 11 IU/L (3-35); SGPT/ALT 16 U/L (12-78); SODIUM 138 mmol/L (136-145); TOTAL PROTEIN 7.1 gm/dL (6.4-8.2)
== END | disposition home or self-care (01) ==
LOC: LAB 14:40
PROVIDERS: Family Medicine
DX: L72.9 Follicular cyst of the skin and subcutaneous tissue, unspecified (principal); I10 Essential (primary) hypertension

== ENCOUNTER → 2018-05-16 | Outpatient (CLI) | payer MEDICARE, OTHER ==
[~2018-05-16] MED LIST changes: +ALPARAZOLAM0.5 MG PO; +BIOFREEZE118 ML T; +COMBIVENT RESPIM4 GM INH; -COMBIVENT1 AR1 IH; +COUMADIN2.5 M1 PO; +CYCLOBENZAPRINE10 MG PO; +Coumadin3 MG PO; +DUOFER 28 MG TA28 MG PO; +HYDROCODONE-AC1 EAC1 PO; +HYDROCORTISONE10 MG PO; +HYDROCORTISONE5 MG PO; +IRON325 M1 PO; +JANTOVEN4 M1 PO; +K-TAB10 MEQ PO; +LIPITOR80 MG PO; +NYSTATIN CREAM15 GM T; +OMEPRAZOLE MAGN20 MG PO; +OYSTER SHELL 51 EACH PO; +SLOW RELEASE I159 MG PO; +TRIDERM28.4 GM T; +TYLENOL325 M1 PO; +VENTOLIN 02.5 MG/3 M NEB; +WARFARIN2 MG PO
[2018-05-16 16:30] VITALS: BP 90/65
[2018-05-16 17:00] VITALS: BP 94/67
[2018-05-16 17:30] VITALS: BP 97/65
[2018-05-16 19:30] VITALS: BP 137/59
== END | disposition home or self-care (01) ==
LOC: TRNFUSION 12:29
DX: D64.9 Anemia, unspecified (principal)

== ENCOUNTER 2018-05-28 18:09 | Inpatient (IN) | payer MEDICARE, OTHER ==
[~2018-05-28] VITALS: Ht 160 cm; Wt 94.1 kg
--- NOTE | ~2018-05-28 | EKG ---
[place], [place] ELECTROCARDIOGRAM REPORT NAME: CATHY VARGAS UNIT #: [id number] ROOM: [facility] DOCTOR: TORRIE DRAFT REPORT BIRTHDATE: [birth year] [facility] Test Date: 2018-06-01 Test Time: 11:20:16 Pat Name: CATHY VARGAS Department: Room: [place] [address] Gender: F Desizing Machine Operator: Amy Mcclain : 1940 Requested By: KEYON FRANKS Order Number: [id number] Reading MD: Romina Roy MD Measurements Intervals [place] Rate: 66 P: 0 [place]: 172 QRS: -66 QRSD: 186 T: 136 QT: 475 QTc: 498 Interpretive Statements Sinus rhythm Atrial premature complex RBBB and LAFB LVH with secondary repolarization abnormality No previous ECG available for comparison Electronically Signed On 06-05-2018 12:03:14 PDT by Romina Roy MD CM:EKGRPT:ELECTROCARDIOGRAM REPORT 1120 1203 KEYON LONG DRAFT REPORT KEYON FRANKS DO
--- NOTE | ~2018-05-28 | CON ---
[place], [place] REPORT OF CONSULTATION NAME: CATHY VARGAS UNIT #: [id number] ROOM: [facility] DOCTOR: GISELA RIOS MD BIRTHDATE: [birth year] DOS: 06/01/2018 INPATIENT CONSULTATION NOTE CHIEF COMPLAINT: Left shoulder pain and left knee pain. HISTORY OF PRESENT ILLNESS: This is a pleasant 77-year-old female who was admitted to the hospital with hypo-osmolality and hyponatremia and nausea. Of note, she suffered a left proximal humerus fracture on 05/04/2018 which has been treated nonoperatively. She is not doing any therapy yet. She is not really having much pain in the left shoulder. She is wearing a sling. She was having pain after the fall, but the pain has largely resolved. No current pain. She does describe pain in the left knee. No injury that she can recall. She does note swelling. Pain is located along the medial and lateral borders of the knee. No overlying skin changes. Pain is made worse with activity. It is relieved with rest. She is able to ambulate. No fevers. No chills. No prior problems with the knee before. PAST MEDICAL AND SURGICAL HISTORY: 1. Atrial fibrillation, on Coumadin. 2. Congestive heart failure. 3. Chronic kidney disease. 4. Obesity. 5. Right bundle adonis block. 6. History of transient ischemic attack. 7. Malnutrition. 8. Status post aortic valve replacement in 2013. 9. Status post hysterectomy. 10. Status post open heart surgery. 11. Status post cholecystectomy. 12. Status post cataract extraction. SOCIAL HISTORY: No illicit drug use. No tobacco use. ALLERGIES TO MEDICINE: Multiple including SULFA, CEFAZOLIN, DILTIAZEM, IODINE and OTHERS. REVIEW OF SYSTEMS: A 12-point review of systems was conducted and is negative except for pertinent positives listed in history of present illness. PHYSICAL EXAMINATION: GENERAL APPERANCE: She is oriented to person, place, and time. Her mood is euthymic. Her affect is appropriate. I examined the left shoulder. She is wearing a sling. I palpated the proximal humerus. She does have some tenderness to palpation over the proximal humerus. Overlying skin is intact. No tenderness to palpation over the acromioclavicular joint. No tenderness to palpation over the left elbow. She has a palpable radial pulse. She can flex and extend the fingers without any pain. [place], [place] REPORT OF CONSULTATION NAME: CATHY VARGAS UNIT #: [id number] ROOM: [facility] DOCTOR: GISELA RIOS MD BIRTHDATE: [birth year] I examined the left knee. She does have some swelling in the knee joint. She has about 90 degree range of motion with no pain. No overlying skin changes. No erythema. No wound. She does have some lateral joint line tenderness. No medial joint line tenderness. Strength testing is not performed at the bedside today. All compartments in the thigh and lower leg are soft. X-rays there are no new films of the left shoulder, nor the left knee. I ordered these. LABORATORY DATA: From 05/28/2018 show sodium of 118, a CRP of 2.4, albumin of 3.3, total protein is 7.2, INR of 3.1, H and H of 10 and 29, white count of 7.0, platelet count of 435. ASSESSMENT: A 77-year-old female with hyponatremia and hypo-osmolality with a healing left proximal humerus fracture and new left knee pain. PLAN: As follows: 1. New x-rays of left shoulder and left knee. These are ordered. 2. Physical therapy to work with the patient on the left shoulder range of motion. She is now about 4 weeks out, which is appropriate time to begin range of motion therapy of the left shoulder. 3. Nonweightbearing left upper extremity. Physical therapy should focus on range of motion only. 4. Regarding the knee pain, she is able to walk, so I would allow her to continue to ambulate. We will see what the x-ray shows. We may need an MRI to follow up on her knee pain depending on what the x-ray shows us. I talked to the patient about the risks here. Risks include nonunion of the proximal humerus fracture, chronic pain, loss of function, loss of motion, acute bleed, need for surgical intervention and other risks. She had the opportunity to ask any questions and she understands and agrees with the treatment plan as I have outlined it. Gisela Rios MD CM:CONSTR:REPORT OF CONSULTATION 1018 06/01/18 191 interface
[~2018-05-28 18:09] MED LIST changes: -ALPARAZOLAM0.5 MG PO; -BIOFREEZE118 ML T; -COUMADIN2.5 M1 PO; -CYCLOBENZAPRINE10 MG PO; -DUOFER 28 MG TA28 MG PO; -HYDROCORTISONE10 MG PO; -HYDROCORTISONE5 MG PO; -K-TAB10 MEQ PO; -LIPITOR80 MG PO; -NYSTATIN CREAM15 GM T; -OMEPRAZOLE MAGN20 MG PO; -OYSTER SHELL 51 EACH PO; -SLOW RELEASE I159 MG PO; -TRIDERM28.4 GM T; -TYLENOL325 M1 PO; -VENTOLIN 02.5 MG/3 M NEB
[2018-05-28 18:10] VITALS: BP 147/72
[2018-05-28 19:03] LABS: BASO % 0.6 % (0.0-1.0); EOS # 0.1 10*3/uL (0.0-0.4); EOS % 1.7 % (1.0-4.0); HEMATOCRIT 29.7 % (37.0-47.0); HEMOGLOBIN 10.3 g/dl (12.0-16.0); LYMPH # 1.5 10*3/uL (1.3-4.4); LYMPH % 20.9 % (27.0-41.0); MEAN CELL VOLUME 83.4 fl (81.0-99.0); MEAN CORPUSCULAR HGB 28.9 pg (27.0-31.0); MEAN CORPUSCULAR HGB CONC 34.7 g/dl (33.0-37.0); MEAN PLATELET VOLUME 8.1 fl (9.6-12.3); MONO # 0.7 10*3/uL (0.1-1.0); MONO % 9.8 % (3.0-9.0); NEUT # 4.6 10*3/uL (2.3-7.9); NEUT % 66.3 % (47.0-73.0); PLATELET COUNT AUTOMATED 435 10*3/uL (130-400); RED BLOOD COUNT 3.56 10*6/uL (4.10-5.10); RED CELL DISTRI WIDTH 12.8 % (0-14.5)
[2018-05-28 19:14] LABS: ACT PARTIAL THROMBO TIME 50.1 SECONDS (20.8-31.5); INTERNATIONAL NORM RATIO 3.1 (2.0-3.5)
[2018-05-28 19:19] LABS: ALBUMIN 3.3 gm/dl (3.1-4.5); ALKALINE PHOSPHATASE 119 U/L (45-117); BUN 10 mg/dl (7-24); CHLORIDE 82 mmol/L (98-107); CREATININE 0.73 mg/dL (0.55-1.02); LIPASE 78 U/L (73-393); POTASSIUM 3.9 mmol/L (3.5-5.1); SGOT/AST 22 IU/L (3-35); SGPT/ALT 21 U/L (12-78); TOTAL PROTEIN 7.2 gm/dL (6.4-8.2)
[2018-05-28 19:29] LABS: SODIUM 118 mmol/L (136-145)
[2018-05-28 20:50] VITALS: BP 183/63
[2018-05-29] VITALS: BP 141/59
[2018-05-29] MEDS ORDERED: NYSTATIN CREAM15 GM T (00:08)
[2018-05-29] MEDS ORDERED: TYLENOL325 M1 PO (00:08)
[2018-05-29] MEDS ORDERED: COUMADIN2.5 M1 PO (00:09)
[2018-05-29 00:29] LABS: BUN 11 mg/dl (7-24); CHLORIDE 82 mmol/L (98-107); CREATININE 0.77 mg/dL (0.55-1.02); POTASSIUM 3.9 mmol/L (3.5-5.1)
[2018-05-29 00:31] LABS: SODIUM 119 mmol/L (136-145)
[2018-05-29 01:32] LABS: BILIRUBIN 2+ (NEGATIVE); BLOOD 3+ (NEGATIVE); CLARITY CLOUDY (CLEAR); COLOR YELLOW (YELLOW); GLUCOSE NEGATIVE (NEGATIVE); KETONE 2+ (NEGATIVE); LEUKO ESTERASE 2+ (NEGATIVE); NITRITE NEGATIVE (NEGATIVE); PH 5.5 (5.0-9.0); SPECIFIC GRAVITY >= 1.030 (1.005-1.030); UROBILINOGEN 0.2 E.U./dl (0.2-1.0)
[2018-05-29 01:43] LABS: BACTERIA TRACE; RBC 21-30 rbc/hpf (0-2); WBC TNTC wbc/hpf (0-5)
[2018-05-29 03:34] LABS: BUN 11 mg/dl (7-24); CHLORIDE 87 mmol/L (98-107); CREATININE 0.74 mg/dL (0.55-1.02); POTASSIUM 4.8 mmol/L (3.5-5.1); SODIUM 123 mmol/L (136-145)
[2018-05-29 06:51] LABS: BASO # 0.1 10*3/uL (0.0-0.1); BASO % 0.7 % (0.0-1.0); EOS # 0.2 10*3/uL (0.0-0.4); EOS % 2.4 % (1.0-4.0); HEMATOCRIT 28.9 % (37.0-47.0); HEMOGLOBIN 9.8 g/dl (12.0-16.0); LYMPH # 1.4 10*3/uL (1.3-4.4); LYMPH % 18.9 % (27.0-41.0); MEAN CELL VOLUME 85.5 fl (81.0-99.0); MEAN CORPUSCULAR HGB CONC 33.9 g/dl (33.0-37.0); MEAN PLATELET VOLUME 8.2 fl (9.6-12.3); MONO # 0.8 10*3/uL (0.1-1.0); MONO % 11.2 % (3.0-9.0); NEUT # 4.8 10*3/uL (2.3-7.9); NEUT % 66.1 % (47.0-73.0); PLATELET COUNT AUTOMATED 382 10*3/uL (130-400); RED BLOOD COUNT 3.38 10*6/uL (4.10-5.10); RED CELL DISTRI WIDTH 12.9 % (0-14.5); WHITE BLOOD COUNT 7.2 10*3/uL (4.8-10.8)
[2018-05-29 07:19] LABS: ALBUMIN 2.9 gm/dl (3.1-4.5); BUN 10 mg/dl (7-24); CHLORIDE 85 mmol/L (98-107); CHOLESTEROL 150 mg/dL (<200); CREATININE 0.73 mg/dL (0.55-1.02); PHOSPHOROUS 3.6 mg/dL (2.5-4.9); POTASSIUM 4.4 mmol/L (3.5-5.1); SGOT/AST 20 IU/L (3-35); SGPT/ALT 21 U/L (12-78); SODIUM 123 mmol/L (136-145); TOTAL PROTEIN 6.8 gm/dL (6.4-8.2); TRIGLYCERIDES 59 mg/dl (<150); VLDL CHOLESTEROL 12 mg/dL (6-40)
[2018-05-29 07:22] LABS: ACT PARTIAL THROMBO TIME 52.6 SECONDS (20.8-31.5); INTERNATIONAL NORM RATIO 3.2 (2.0-3.5)
[2018-05-29 07:26] LABS: ALKALINE PHOSPHATASE 105 U/L (45-117); HDL CHOLESTEROL 64 mg/dl (40-60); LDL CHOLESTEROL 74 mg/dL (9-159)
[2018-05-29 08:00] VITALS: BP 138/62
[2018-05-29] MEDS ORDERED: ACCOLATE20 MG PO (08:50)
[2018-05-29 09:41] LABS: VITAMIN D, 25-HYDROXY 50.9 ng/mL (30-100)
[2018-05-29 12:00] VITALS: BP 98/82
[2018-05-29 14:29] LABS: BUN 10 mg/dl (7-24); CHLORIDE 90 mmol/L (98-107); CREATININE 0.65 mg/dL (0.55-1.02); POTASSIUM 4.6 mmol/L (3.5-5.1); SODIUM 126 mmol/L (136-145)
[2018-05-29 16:00] VITALS: BP 137/54
[2018-05-29 20:00] VITALS: BP 142/64
[2018-05-30] VITALS: BP 141/52
[2018-05-30 06:45] LABS: BASO # 0.1 10*3/uL (0.0-0.1); BASO % 0.9 % (0.0-1.0); EOS # 0.3 10*3/uL (0.0-0.4); EOS % 4.3 % (1.0-4.0); HEMATOCRIT 26.9 % (37.0-47.0); LYMPH # 1.4 10*3/uL (1.3-4.4); LYMPH % 19.9 % (27.0-41.0); MEAN CELL VOLUME 86.2 fl (81.0-99.0); MEAN CORPUSCULAR HGB 28.8 pg (27.0-31.0); MEAN CORPUSCULAR HGB CONC 33.5 g/dl (33.0-37.0); MEAN PLATELET VOLUME 7.9 fl (9.6-12.3); MONO # 0.8 10*3/uL (0.1-1.0); MONO % 11.3 % (3.0-9.0); NEUT # 4.3 10*3/uL (2.3-7.9); NEUT % 63.2 % (47.0-73.0); PLATELET COUNT AUTOMATED 315 10*3/uL (130-400); RED BLOOD COUNT 3.12 10*6/uL (4.10-5.10); WHITE BLOOD COUNT 6.8 10*3/uL (4.8-10.8)
[2018-05-30 07:01] LABS: BUN 8 mg/dl (7-24); CHLORIDE 89 mmol/L (98-107); CREATININE 0.66 mg/dL (0.55-1.02); POTASSIUM 4.4 mmol/L (3.5-5.1); SODIUM 125 mmol/L (136-145)
[2018-05-30 07:15] LABS: INTERNATIONAL NORM RATIO 3.7 (2.0-3.5)
[2018-05-30 08:00] VITALS: BP 151/51
[2018-05-30 12:00] VITALS: BP 132/58
[2018-05-30 14:48] LABS: ALBUMIN 2.9 gm/dl (3.1-4.5); ALKALINE PHOSPHATASE 107 U/L (45-117); BUN 7 mg/dl (7-24); CHLORIDE 88 mmol/L (98-107); CREATININE 0.69 mg/dL (0.55-1.02); SGOT/AST 22 IU/L (3-35); SGPT/ALT 20 U/L (12-78); SODIUM 123 mmol/L (136-145); TOTAL PROTEIN 6.3 gm/dL (6.4-8.2)
[2018-05-30 14:51] LABS: POTASSIUM 3.4 mmol/L (3.5-5.1)
[2018-05-30 16:00] VITALS: BP 142/50
[2018-05-30 20:00] VITALS: BP 139/52
[2018-05-31] VITALS: BP 144/51
[2018-05-31 06:42] LABS: INTERNATIONAL NORM RATIO 3.4 (2.0-3.5)
[2018-05-31 06:46] LABS: BUN 7 mg/dl (7-24); CHLORIDE 90 mmol/L (98-107); CREATININE 0.67 mg/dL (0.55-1.02)
[2018-05-31 07:31] LABS: SODIUM 127 mmol/L (136-145)
[2018-05-31 07:32] LABS: POTASSIUM 4.5 mmol/L (3.5-5.1)
[2018-05-31 12:02] VITALS: BP 151/38
[2018-05-31 16:00] VITALS: BP 143/49
[2018-05-31 20:00] VITALS: BP 120/40
[2018-06-01] VITALS: BP 114/59
[2018-06-01 06:33] LABS: BUN 7 mg/dl (7-24); CHLORIDE 89 mmol/L (98-107); POTASSIUM 4.1 mmol/L (3.5-5.1); SODIUM 126 mmol/L (136-145)
[2018-06-01 07:01] LABS: INTERNATIONAL NORM RATIO 2.9 (2.0-3.5)
[2018-06-01 08:00] VITALS: BP 154/66
[2018-06-01 10:45] VITALS: BP 120/80
[2018-06-01 11:00] VITALS: BP 145/61
[2018-06-01] MEDS ORDERED: SLOW RELEASE I159 MG PO (11:30)
[2018-06-01] MEDS ORDERED: VENTOLIN 02.5 MG/3 M NEB (11:30)
[2018-06-01] MEDS ORDERED: CYCLOBENZAPRINE10 MG PO (11:30)
[2018-06-23] MEDS ORDERED: HYDROCORTISONE10 MG PO (18:59)
[2018-06-23] MEDS ORDERED: HYDROCORTISONE5 MG PO (19:00)
[2018-06-23] MEDS ORDERED: ALPARAZOLAM0.5 MG PO (20:48)
[2018-06-23] MEDS ORDERED: ASPIRIN CHEWABL81 MG PO (20:49)
[2018-06-23] MEDS ORDERED: LIPITOR80 MG PO (20:50)
[2018-06-23] MEDS ORDERED: BIOFREEZE118 ML T (20:52)
[2018-06-23] MEDS ORDERED: TRIDERM28.4 GM T (21:08)
[2018-06-23] MEDS ORDERED: DUOFER 28 MG TA28 MG PO (21:10)
[2018-06-23] MEDS ORDERED: LOSARTAN POTASS25 M1 PO (21:13)
[2018-06-23] MEDS ORDERED: OMEPRAZOLE MAGN20 MG PO (21:14)
[2018-06-28] MEDS ORDERED: LIPITOR80 MG PO (14:11)
[2018-06-28] MEDS ORDERED: HYDROCODONE-AC1 EAC1 PO (14:11)
[2018-06-28] MEDS ORDERED: COMBIVENT RESPIM4 GM INH (14:11)
[2018-06-28] MEDS ORDERED: COREG6.25 MG PO (14:11)
[2018-06-28] MEDS ORDERED: OYSTER SHELL 51 EACH PO (14:11)
[2018-06-28] MEDS ORDERED: ASPIRIN CHEWABL81 MG PO (14:11)
[2018-06-28] MEDS ORDERED: CYCLOBENZAPRINE10 MG PO (14:11)
[2018-06-28] MEDS ORDERED: LOSARTAN POTASS25 M1 PO (14:11)
[2018-06-28] MEDS ORDERED: SLOW RELEASE I159 MG PO (14:11)
[2018-06-28] MEDS ORDERED: K-TAB10 MEQ PO (14:12)
[2018-06-28] MEDS ORDERED: LASIX20 MG PO (14:12)
[2018-06-28] MEDS ORDERED: HYDROCORTISONE5 MG PO (14:12)
[2018-06-28] MEDS ORDERED: DULER200 INH (14:12)
[2018-06-28] MEDS ORDERED: ALPARAZOLAM0.5 MG PO (14:12)
[2018-06-28] MEDS ORDERED: OMEPRAZOLE MAGN20 MG PO (14:12)
[2018-06-28] MEDS ORDERED: Coumadin3 MG PO (14:12)
[2018-06-28] MEDS ORDERED: ACCOLATE20 MG PO (14:12)
== END 2018-06-01 12:17 | disposition short-term general hospital (02) | DRG 644 ==
LOC: ED 18:09 → 5E 19:57 → EDHOLD 19:57 → 5E 20:21 → ICCU 06-01 10:52
PROVIDERS: Emergency Medicine; Internal Medicine; Student in an Organized Health Care Education/Training Program
DX: E22.2 Syndrome of inappropriate secretion of antidiuretic hormone (principal); J96.11 Chronic respiratory failure with hypoxia; S42.212P Unspecified displaced fracture of surgical neck of left humerus, subsequent encounter for fracture with malunion; D68.59 Other primary thrombophilia; I13.0 Hypertensive heart and chronic kidney disease with heart failure and stage 1 through stage 4 chronic kidney disease, or unspecified chronic kidney disease; Z68.36 Body mass index [BMI] 36.0-36.9, adult; I50.9 Heart failure, unspecified; N18.2 Chronic kidney disease, stage 2 (mild); K57.30 Diverticulosis of large intestine without perforation or abscess without bleeding; E87.8 Other disorders of electrolyte and fluid balance, not elsewhere classified; K21.0 Gastro-esophageal reflux disease with esophagitis; J44.9 Chronic obstructive pulmonary disease, unspecified; I48.0 Paroxysmal atrial fibrillation; E66.9 Obesity, unspecified; D64.9 Anemia, unspecified; D47.3 Essential (hemorrhagic) thrombocythemia; E86.0 Dehydration; F41.9 Anxiety disorder, unspecified; E55.9 Vitamin D deficiency, unspecified; R45.1 Restlessness and agitation; G47.33 Obstructive sleep apnea (adult) (pediatric); I45.10 Unspecified right bundle-branch block; Z85.038 Personal history of other malignant neoplasm of large intestine; Z95.2 Presence of prosthetic heart valve; Z90.710 Acquired absence of both cervix and uterus; Z90.49 Acquired absence of other specified parts of digestive tract; Z51.81 Encounter for therapeutic drug level monitoring; Z99.81 Dependence on supplemental oxygen; Z79.01 Long term (current) use of anticoagulants; Z86.73 Personal history of transient ischemic attack (TIA), and cerebral infarction without residual deficits; Z98.49 Cataract extraction status, unspecified eye; Z82.49 Family history of ischemic heart disease and other diseases of the circulatory system; Z80.0 Family history of malignant neoplasm of digestive organs; Z88.8 Allergy status to other drugs, medicaments and biological substances; Z88.2 Allergy status to sulfonamides; Z91.041 Radiographic dye allergy status; Z79.899 Other long term (current) drug therapy

== ENCOUNTER → 2018-06-22 | Outpatient (CLI) | payer MEDICARE, OTHER ==
[~2018-06-22] MED LIST changes: +ALPARAZOLAM0.5 MG PO; +BIOFREEZE118 ML T; +COUMADIN2.5 M1 PO; +CYCLOBENZAPRINE10 MG PO; +DUOFER 28 MG TA28 MG PO; +HYDROCORTISONE10 MG PO; +HYDROCORTISONE5 MG PO; +K-TAB10 MEQ PO; +LIPITOR80 MG PO; +NYSTATIN CREAM15 GM T; +OMEPRAZOLE MAGN20 MG PO; +OYSTER SHELL 51 EACH PO; +SLOW RELEASE I159 MG PO; +TRIDERM28.4 GM T; +TYLENOL325 M1 PO; +VENTOLIN 02.5 MG/3 M NEB
--- NOTE | ~2018-06-22 | EKG ---
[place], [place] ELECTROCARDIOGRAM REPORT NAME: CATHY VARGAS UNIT #: [id number] ROOM: DOCTOR: TORRIE DRAFT REPORT BIRTHDATE: [birth year] [facility] Test Date: 2018-06-23 Test Time: 14:12:27 Pat Name: CATHY VARGAS Department: Room: Gender: F Culture Manager: : 1940 Requested By: JUANITO HAINES Order Number: [id number] Reading MD: Measurements Intervals [place] Rate: 69 P: -46 [place]: 208 QRS: -60 QRSD: 167 T: 128 QT: 467 QTc: 501 Interpretive Statements Sinus or ectopic atrial rhythm Ventricular trigeminy Right bundle branch block LVH with IVCD and secondary repol abnrm Prolonged QT interval Compared to ECG 06/01/2018 11:20:16 Ectopic atrial rhythm now present Ventricular premature complex(es) now present Intraventricular conduction delay now present Prolonged QT interval now present Sinus rhythm no longer present Atrial premature complex(es) no longer present Left anterior fascicular block no longer present CM:EKGRPT:ELECTROCARDIOGRAM REPORT 1412 1115 JUANITO LONG DRAFT REPORT
== END | disposition home or self-care (01) ==
LOC: ORTHO 08:19
DX: S42.255D Nondisplaced fracture of greater tuberosity of left humerus, subsequent encounter for fracture with routine healing (principal); X58.XXXD Exposure to other specified factors, subsequent encounter

== ENCOUNTER → 2018-07-14 | Outpatient (CLI) | payer MEDICARE, OTHER ==
[2018-07-14 14:42] LABS: INTERNATIONAL NORM RATIO 5.4 (2.0-3.5)
== END | disposition home or self-care (01) ==
LOC: LAB 13:49
PROVIDERS: Family Medicine
DX: D68.9 Coagulation defect, unspecified (principal)

== ENCOUNTER → 2019-01-12 | Outpatient (CLI) | payer MEDICARE, OTHER ==
[2019-01-12 08:35] LABS: BUN 21 mg/dl (7-24); CHLORIDE 103 mmol/L (98-107); IRON 38 ug/dL (50-170); POTASSIUM 4.4 mmol/L (3.5-5.1); SGOT/AST 15 IU/L (3-35); SGPT/ALT 25 U/L (12-78); SODIUM 142 mmol/L (136-145)
[2019-01-12 08:36] LABS: ALKALINE PHOSPHATASE 107 U/L (45-117); BILIRUBIN, DIRECT < 0.1 mg/dL (0.0-0.2)
[2019-01-12 08:37] LABS: BASO # 0.1 10*3/uL (0.0-0.1); BASO % 0.7 % (0.0-1.0); EOS # 0.3 10*3/uL (0.0-0.4); EOS % 3.6 % (1.0-4.0); HEMATOCRIT 29.2 % (37.0-47.0); HEMOGLOBIN 9.1 g/dl (12.0-16.0); LYMPH # 2.2 10*3/uL (1.3-4.4); LYMPH % 24.1 % (27.0-41.0); MEAN CELL VOLUME 94.8 fl (81.0-99.0); MEAN CORPUSCULAR HGB 29.5 pg (27.0-31.0); MEAN CORPUSCULAR HGB CONC 31.2 g/dl (33.0-37.0); MEAN PLATELET VOLUME 9.7 fl (9.6-12.3); MONO # 0.8 10*3/uL (0.1-1.0); MONO % 9.1 % (3.0-9.0); NEUT # 5.6 10*3/uL (2.3-7.9); PLATELET COUNT AUTOMATED 279 10*3/uL (130-400); RED BLOOD COUNT 3.08 10*6/uL (4.10-5.10); RED CELL DISTRI WIDTH 13.9 % (0-14.5); WHITE BLOOD COUNT 9.1 10*3/uL (4.8-10.8)
== END | disposition home or self-care (01) ==
LOC: LAB 07:43
PROVIDERS: Family Medicine
DX: J44.9 Chronic obstructive pulmonary disease, unspecified (principal); D64.9 Anemia, unspecified

== ENCOUNTER → 2019-02-16 | Outpatient (CLI) | payer MEDICARE, OTHER ==
[2019-02-16 09:15] LABS: FREE T4 1.33 ng/dl (0.76-1.46)
[2019-02-16 09:21] LABS: THYROID STIM HORMONE (HS) 2.9 uIU/ml (0.358-4.75)
== END | disposition home or self-care (01) ==
LOC: LAB 08:17
PROVIDERS: Internal Medicine Endocrinology, Diabetes & Metabolism
DX: E27.49 Other adrenocortical insufficiency (principal)

== ENCOUNTER 2019-04-26 16:42 | Inpatient (IN) | payer MEDICARE, OTHER ==
[~2019-04-26] VITALS: Ht 160 cm; Wt 103.9 kg
--- NOTE | ~2019-04-26 | EKG ---
[place], [place] ELECTROCARDIOGRAM REPORT NAME: CATHY VARGAS UNIT #: [id number] ROOM: 416 DOCTOR: TORRIE DRAFT REPORT BIRTHDATE: [birth year] [place] Test Date: 2019-04-26 Test Time: 18:53:26 Pat Name: CATHY VARGAS Department: Room: 416 Gender: F Photographic Editor: Errol Lal : 1940 Requested By: TRACY NASSAR Order Number: [id number] Reading MD: Jared Oden Measurements Intervals [place] Rate: 65 P: -24 MN: 227 QRS: -60 QRSD: 154 T: 88 QT: 465 QTc: 484 Interpretive Statements Sinus rhythm Prolonged MN interval Right bundle branch block LVH with IVCD and secondary repol abnrm Baseline wander in lead(s) V6 Compared to ECG 06/26/2018 08:54:09 First degree AV block now present Prolonged QT interval no longer present Electronically Signed On 04-28-2019 8:06:54 PDT by Jared Oden CM:EKGRPT:ELECTROCARDIOGRAM REPORT 1853 0806 TRACY BROWNLEE DRAFT REPORT TRACY MUÑOZ
--- NOTE | ~2019-04-26 | CON ---
[place], [place] REPORT OF CONSULTATION NAME: CATHY VARGAS UNIT #: [id number] ROOM: 416 DOCTOR: KHAI PICHARDORAFAEL BIRTHDATE: [birth year] DOS: 05/01/2019 GASTROENDOSCOPIC CONSULTATION REPORT HISTORY OF PRESENT ILLNESS: A 78-year-old patient who has presented with chief complaint of cellulitis of lower extremity, meanwhile with a history of anemia and further drop in H and H and the patient had to be consulted for further drops in blood count. Latest H and H has been 85 and 27. Initial H and H 9 and 29. The patient has already had an appointment in the office to follow as an outpatient. PAST MEDICAL HISTORY: Associated with congestive heart failure, anxiety, colon cancer, constipation, diarrhea, change in bowel habit, tachycardia, right bundle-branch block. PAST SURGICAL HISTORY: Cystoscopy, hysterectomy, Uriah fundoplication, cataract, cholecystectomy, thoracentesis, all have been recognized. SOCIAL HISTORY: Nonsmoker, nonalcohol consumer. FAMILY HISTORY: Noncontributory. MEDICATION: List has been reviewed. ALLERGIES: TO NUMEROUS MEDICATIONS LISTED. REVIEW OF SYSTEMS: HEENT: Denies double vision, blurred vision. RESPIRATORY: Admits some shortness of breath. CARDIOVASCULAR: Denies chest pain. DIGESTIVE SYSTEM: No active GI bleed. No hematemesis. No hematochezia. PHYSICAL EXAMINATION: VITAL SIGNS: Stable. GENERAL: Obese patient. HEENT: Head: Normocephalic, nontraumatic. Mouth and buccal mucosa benign. NECK: Supple, no thyromegaly, no cervical lymphadenopathy. CHEST: Symmetric anatomy, equal expansion. No wheeze, no rhonchi. HEART: Normal sinus rhythm, no gallop, no murmur. ABDOMEN: Soft. No hepato-organomegaly. Bowel sounds present. No pulsatile mass. EXTREMITIES: No cyanosis. Left leg edema, cellulitis appreciated. NEUROLOGIC: Alert, oriented to time, place, person. LABORATORY DATA: Reviewed. Records reviewed. IMPRESSION AND PLAN: Cellulitis of the left lower extremity, anemia, protein-calorie malnutrition, congestive heart failure, obesity, gastroesophageal reflux disease, cardiomyopathy, atrial fibrillation history, diverticulosis history, iron deficiency, colon cancer history, all have been [place], [place] REPORT OF CONSULTATION NAME: CATHY VARGAS UNIT #: [id number] ROOM: 416 DOCTOR: KHAI PICHARDO,RAFAEL BIRTHDATE: [birth year] recognized. Work in progress. The patient is going to follow up with us as an outpatient for an endoscopic evaluation. Labs reviewed. Records reviewed. Thank you very much indeed for your kind referral. RAFAEL RIDLEY MD CM:CONSTR:REPORT OF CONSULTATION 1408 05/02/19 0143 interface
[2019-04-26 16:43] VITALS: BP 197/79
[2019-04-26 18:51] LABS: BASO # 0.1 10*3/uL (0.0-0.1); BASO % 0.5 % (0.0-1.0); EOS # 0.2 10*3/uL (0.0-0.4); EOS % 1.8 % (1.0-4.0); HEMATOCRIT 29.5 % (37.0-47.0); HEMOGLOBIN 9.2 g/dl (12.0-16.0); LYMPH # 1.9 10*3/uL (1.3-4.4); LYMPH % 18.8 % (27.0-41.0); MEAN CELL VOLUME 92.8 fl (81.0-99.0); MEAN CORPUSCULAR HGB 28.9 pg (27.0-31.0); MEAN CORPUSCULAR HGB CONC 31.2 g/dl (33.0-37.0); MEAN PLATELET VOLUME 9.4 fl (9.6-12.3); MONO # 0.8 10*3/uL (0.1-1.0); MONO % 7.6 % (3.0-9.0); NEUT # 7.2 10*3/uL (2.3-7.9); NEUT % 70.8 % (47.0-73.0); PLATELET COUNT AUTOMATED 299 10*3/uL (130-400); RED BLOOD COUNT 3.18 10*6/uL (4.10-5.10); WHITE BLOOD COUNT 10.2 10*3/uL (4.8-10.8)
[2019-04-26 19:06] LABS: ALBUMIN 3.2 gm/dl (3.1-4.5); ALKALINE PHOSPHATASE 88 U/L (45-117); BUN 21 mg/dl (7-24); CHLORIDE 102 mmol/L (98-107); CREATININE 1.24 mg/dL (0.55-1.02); LIPASE 78 U/L (73-393); POTASSIUM 4.1 mmol/L (3.5-5.1); SGOT/AST 14 IU/L (3-35); SGPT/ALT 18 U/L (12-78); SODIUM 138 mmol/L (136-145); TOTAL PROTEIN 7.3 gm/dL (6.4-8.2); TROPONIN I < 0.015 ng/ml (<0.045)
[2019-04-26 19:07] LABS: ACT PARTIAL THROMBO TIME 29.8 SECONDS (20.0-32.1); INTERNATIONAL NORM RATIO 1.1 (2.0-3.5)
--- NOTE | 2019-04-26 19:10 | NUR ---
NURSE REPORT GIVEN TO CERTIFIED ANESTHESIOLOGIST ASSISTANT RN.
[2019-04-26 20:27] VITALS: BP 187/64
[2019-04-26 21:00] VITALS: BP 162/94
--- NOTE | 2019-04-26 21:00 | NUR ---
Time: 2099 A 78 year old FEMALE admitted to under services of FRANKO WELLS DO. Pt. arrived via ambulatory from ER. Chief complaint: CELLULITIS. KHALIF LEUNG
[2019-04-26] MEDS ORDERED: FUROSEMIDE40 MG PO (22:10)
[2019-04-26] MEDS ORDERED: JANTOVEN4 M1 PO (22:13)
[2019-04-26] MEDS ORDERED: CYCLOBENZAPRINE10 MG PO (22:14)
[2019-04-26] MEDS ORDERED: HYDROCODONE-AC1 EAC1 PO (22:15)
[2019-04-26] MEDS ORDERED: ACCUNEB 0.1.25 MG/1 INH (22:16)
[2019-04-26] MEDS ORDERED: K-TAB10 MEQ PO (22:41)
[2019-04-26 22:45] LABS: BILIRUBIN NEGATIVE (NEGATIVE); BLOOD TRACE-LYSED (NEGATIVE); CLARITY CLEAR (CLEAR); COLOR YELLOW (YELLOW); GLUCOSE NEGATIVE (NEGATIVE); KETONE NEGATIVE (NEGATIVE); LEUKO ESTERASE 3+ (NEGATIVE); NITRITE NEGATIVE (NEGATIVE); PH 6.5 (5.0-9.0); SPECIFIC GRAVITY <= 1.005 (1.005-1.030); UROBILINOGEN 0.2 E.U./dl (0.2-1.0)
[2019-04-26 22:50] LABS: BACTERIA 2+; EPITHELIAL CELLS 0-2; RBC 0-2 rbc/hpf (0-2); WBC TNTC wbc/hpf (0-5)
[2019-04-27] VITALS: BP 159/68
--- NOTE | 2019-04-27 01:13 | NUR ---
PT DOES NOT WISH FOR HER LLE TO BE DRESSED AT THIS TIME.
[2019-04-27 07:31] LABS: BASO # 0.1 10*3/uL (0.0-0.1); BASO % 0.7 % (0.0-1.0); EOS # 0.2 10*3/uL (0.0-0.4); EOS % 3.3 % (1.0-4.0); HEMATOCRIT 27.2 % (37.0-47.0); HEMOGLOBIN 8.3 g/dl (12.0-16.0); LYMPH # 2.1 10*3/uL (1.3-4.4); MEAN CELL VOLUME 94.8 fl (81.0-99.0); MEAN CORPUSCULAR HGB 28.9 pg (27.0-31.0); MEAN CORPUSCULAR HGB CONC 30.5 g/dl (33.0-37.0); MEAN PLATELET VOLUME 9.7 fl (9.6-12.3); MONO # 0.8 10*3/uL (0.1-1.0); MONO % 10.3 % (3.0-9.0); NEUT # 4.2 10*3/uL (2.3-7.9); NEUT % 57.2 % (47.0-73.0); PLATELET COUNT AUTOMATED 261 10*3/uL (130-400); RED BLOOD COUNT 2.87 10*6/uL (4.10-5.10); RED CELL DISTRI WIDTH 14.1 % (0-14.5); WHITE BLOOD COUNT 7.4 10*3/uL (4.8-10.8)
[2019-04-27 08:00] VITALS: BP 178/79
[2019-04-27 08:00] LABS: INTERNATIONAL NORM RATIO 1.1 (2.0-3.5)
[2019-04-27 08:06] LABS: POTASSIUM 3.7 mmol/L (3.5-5.1)
[2019-04-27 08:29] LABS: ALBUMIN 2.9 gm/dl (3.1-4.5); CREATININE 1.17 mg/dL (0.55-1.02); PHOSPHOROUS 3.8 mg/dL (2.5-4.9); THYROID STIM HORMONE (HS) 2.68 uIU/ml (0.358-4.75); TOTAL PROTEIN 6.4 gm/dL (6.4-8.2)
[2019-04-27 08:34] LABS: VITAMIN D, 25-HYDROXY 33.4 ng/mL (30-100)
--- NOTE | 2019-04-27 08:40 | NUR ---
CATHY VARGAS [id number] Please refer to the physician's history and physical for past medical history, comorbid conditions, and allergies. Diagnosis: CELLULITIS Mao Score: 18,LOW OR NO RISK WOUND DESCRIPTIONS: Wound Number: 1 Location of the wound: left lower extremity Thickness: Full Size: 7.5cm x 8.5cm x 0.1cm Tunneling: none Undermining: none Sinus Tract: none Presence of Exudate: Serous Amount: Light Color: Red, yellow Odor: None Periwound Skin Appearance: Erythema, edema Wound edges: approximated with several intact serum filled blister to medial aspect of lower extremity Pain (associated with wound): tender to touch How does patient state this happened? pt stated this happened about a couple weeks ago when she hit the area off of her walker. Surface the patient is resting on: Isoflex SKIN PREVENTION RECOMMENDATION: 1. Pressure redistribution support surface as appropriate 2. Elevate heels 3. Remove boots/TEDS every shift and reapply 4. Head of bed 30 degrees as tolerated 5. Assess nutrition and hydration 6. Manage moisture 7. Avoid the use of containment devices while in bed 8. Use absorptive products on surfaces limit layers of linens on bed 9. Turn and reposition every 1-2 hours in bed and every 1 hour in chair as tolerated 10. Weight shifts every 15 minutes while up in chair 11. Offloading with pillows or device to keep heels elevated off bed 12. Monitor skin at least every shift 13. Inspect under medical devices twice a day WOUND TREATMENT RECOMMENDATIONS: Venous and arterial studies to BLE's due to non-healing wound. Full thickness guidelines: Cleanse left lower extremity with nss and apply therahoney sheet to wound bed then apply abd pad and lightly wrap with rolled gauze daily and prn for soiling. Consult podiatry for left lower extremities since patient follow previously in the out patient setting and is requesting to follow up once she is discharged. heel raiser pro boots to bilateral feet while in bed.
--- NOTE | 2019-04-27 08:57 | NUR ---
PHYSICAL THERAPY Nursing screen received and chart reviewed. Recommend PT evaluation if decline in functional mobility presents. Thank you. Heydi Arora,PT,DPT
--- NOTE | 2019-04-27 08:58 | NUR ---
Nursing screen received and chart reviewed. Patient admitted with LLE cellulitis and UTI. If patient should have a decline in ADLs or functional mobility consider occupational therapy referral. Thank you. Deidre Valverde OTR/l
--- NOTE | 2019-04-27 09:00 | NUR ---
Staff Nuclear Weapons Officer in to talk to patient. Patient states lives at home with alone. There are few steps in the home. Physician: zaki potts [facility]: [facility] Patient's level of ADLs: MINIMAL ASSIST Patient has working utilities: all working DME: walker, bedside commode, rollator, home oxygen and portable tanks from [facility] Follow-up physician's appointment after d/c: will be made by hospitalist nurse director upon discharge Does patient want to access PORTAL?: no Discharge plan discussed with patient, she lives at home alone, she states she uses a walker for ambulation and requires minimal assistance with adls, she [facility] 3 days a week for 3 hours a day, she has [facility] nursing and would like to continue of these services, she has home oxygen and portable tanks from [facility], case management will notify home health when patient is medically stable for discharge. JAREK HOWARD
--- NOTE | 2019-04-27 10:27 | NUR ---
Dr. Patel given wound care recommendations he stated he will give them to Dr. Peña.
--- NOTE | 2019-04-27 11:52 | NUR ---
Spoke with Dr. Sánchez regarding consult. No new orders, physician to follow up at bedside.
--- NOTE | 2019-04-27 15:18 | NUR ---
Per patient request spoke with Dr. Peña regarding antacid after meals. The change in the dosage of hudrocortisone was also discussed.
[2019-04-27 16:00] VITALS: BP 139/53
--- NOTE | 2019-04-27 16:35 | NUR ---
Notified Dr. Peña of the increase in patients heart rate and low grade temperature. Also discussed home med [employer] that needed ordered. Physician reviewing, no new orders at this time.
[2019-04-27 20:00] VITALS: BP 133/76
--- NOTE | 2019-04-27 22:29 | NUR ---
PATIENT REFUSING CORTEF. PT WANTS TO TAKE CORTEF AT 8AM AND 3PM STATED BY THE PATIENT.
--- NOTE | 2019-04-27 23:45 | NUR ---
IV started right forearm with #22 angiocath after 1st attempts. The IV site was prepped with Chloraprep. Heparin lock attached. Sterile dressing applied. Patient tolerated precedure well. Procedure performed according to [facility] policy & procedure. HELLEN BALDERAS
[2019-04-28] VITALS: BP 141/53
--- NOTE | 2019-04-28 01:54 | NUR ---
24 HR chart check completed.
[2019-04-28 06:09] LABS: BASO # 0.1 10*3/uL (0.0-0.1); BASO % 0.7 % (0.0-1.0); EOS # 0.3 10*3/uL (0.0-0.4); EOS % 3.7 % (1.0-4.0); HEMOGLOBIN 8.5 g/dl (12.0-16.0); LYMPH # 2.1 10*3/uL (1.3-4.4); LYMPH % 23.8 % (27.0-41.0); MEAN CELL VOLUME 93.3 fl (81.0-99.0); MEAN CORPUSCULAR HGB 28.3 pg (27.0-31.0); MEAN CORPUSCULAR HGB CONC 30.4 g/dl (33.0-37.0); MEAN PLATELET VOLUME 9.6 fl (9.6-12.3); MONO # 0.7 10*3/uL (0.1-1.0); NEUT # 5.7 10*3/uL (2.3-7.9); NEUT % 63.5 % (47.0-73.0); PLATELET COUNT AUTOMATED 275 10*3/uL (130-400); RED CELL DISTRI WIDTH 14.4 % (0-14.5)
[2019-04-28 06:22] LABS: CREATININE 1.33 mg/dL (0.55-1.02); POTASSIUM 3.8 mmol/L (3.5-5.1)
--- NOTE | 2019-04-28 07:30 | NUR ---
Patient resting quietly with no c/o discomfort. Respirations easy and regular. Vital signs stable. No overt distress. TRISTAN NICOLE
[2019-04-28 08:00] VITALS: BP 140/66
--- NOTE | 2019-04-28 08:27 | NUR ---
24 HR chart check completed.
--- NOTE | 2019-04-28 09:00 | NUR ---
case management visits with patient, she will be returning home and continue her services, she denies any other needs at home
[2019-04-28 12:00] VITALS: BP 156/56
--- NOTE | 2019-04-28 14:44 | NUR ---
PHYSICAL THERAPY Physical therapy evaluation completed. Full details and evaluation to follow. Low complexity skilled physical therapy evaluation performed (57885). PT will work on strength, gait, balance, and safety per POC. Recommend home with home health at discharge. Thank you, Jacklyn Cameron, SPT Heydi Arora,PT,DPT
--- NOTE | 2019-04-28 14:44 | NUR ---
Occupational Therapy evaluation completed on 4 with full eval to follow. PRecautions include BLE edema; cellulitis, IV UE, O2 use PRN, low complexity level 18654 via chart review, testing and evaluation. Recommend return home w/ home health PT, SN as prior. Thank you. Deidre Valverde OTR/l
--- NOTE | 2019-04-28 15:08 | NUR ---
SPEECH PATHOLOGY Nursing screen completed. Speech services do not appear indicated at this time however this dept. will be available for consult if future needs arise. ESTELLA DUARTE MSCCC-PIPE THREADING MACHINE OPERATOR
[2019-04-28 16:00] VITALS: BP 148/47
--- NOTE | 2019-04-28 16:00 | NUR ---
Patient resting quietly with no c/o discomfort. Respirations easy and regular. Vital signs stable. No overt distress. TRISTAN NICOLE
--- NOTE | 2019-04-28 18:58 | NUR ---
24 HR chart check completed.
[2019-04-28 20:00] VITALS: BP 151/55
[2019-04-29] VITALS: BP 154/49
[2019-04-29 06:08] LABS: BASO # 0.1 10*3/uL (0.0-0.1); BASO % 0.6 % (0.0-1.0); CREATININE 1.47 mg/dL (0.55-1.02); EOS # 0.2 10*3/uL (0.0-0.4); EOS % 2.6 % (1.0-4.0); HEMATOCRIT 26.9 % (37.0-47.0); HEMOGLOBIN 8.5 g/dl (12.0-16.0); LYMPH # 1.8 10*3/uL (1.3-4.4); LYMPH % 21.3 % (27.0-41.0); MEAN CELL VOLUME 92.4 fl (81.0-99.0); MEAN CORPUSCULAR HGB 29.2 pg (27.0-31.0); MEAN CORPUSCULAR HGB CONC 31.6 g/dl (33.0-37.0); MEAN PLATELET VOLUME 9.9 fl (9.6-12.3); MONO # 0.9 10*3/uL (0.1-1.0); MONO % 9.9 % (3.0-9.0); NEUT # 5.6 10*3/uL (2.3-7.9); NEUT % 65.2 % (47.0-73.0); PLATELET COUNT AUTOMATED 258 10*3/uL (130-400); POTASSIUM 3.6 mmol/L (3.5-5.1); RED BLOOD COUNT 2.91 10*6/uL (4.10-5.10); RED CELL DISTRI WIDTH 14.2 % (0-14.5); WHITE BLOOD COUNT 8.6 10*3/uL (4.8-10.8)
[2019-04-29 06:43] LABS: INTERNATIONAL NORM RATIO 1.1 (2.0-3.5)
--- NOTE | 2019-04-29 09:00 | NUR ---
case management visits with patient, she states she will be returning home when able and will continue with [facility] and [facility], case management will follow
--- NOTE | 2019-04-29 10:35 | NUR ---
PHYSICAL THERAPY Patient presented to therapy in supine with head of bed elevated and 3 liters of spO2 via nasal canula. Patient does not have a bed alarm activated at this time. Patient was identified by name and . Patient gives informed consent for treatment. Patient performed supine to sitting at EOB transfer with SBA. Patient transferred to bedside commode with SBA. Patient transferred off of bedside commode with SBA. Patient ambulated with Wh Walker and Close Supervision for 200' x 1 with 3 liters of spO2 via nasal canula and no LOB and only mild SOB. Patient's O2 sat was measured at 96% and her pulse was 106. Patient transferred back to supine in bed with SBA. Patient was left in supine in bed with head of bed elevated, call light within reach, and O2 connected to wall outlet with 3 liters. Patient was 1:1 with [facility] LIQUEFACTION AND REGASIFICATION HELPER for 17 minutes total. BED ALARM WAS NOT ACTIVATED because it was not activated upon this LIQUEFACTION AND REGASIFICATION HELPER arriving in room and patient stated that ,the bed alarm has not been on. WERNER LOWE LIQUEFACTION AND REGASIFICATION HELPER
--- NOTE | 2019-04-29 11:50 | NUR ---
DR. MEJÍA'S OFFICE NOTIFIED OF CONSULT.
[2019-04-29 11:54] VITALS: BP 153/53
--- NOTE | 2019-04-29 12:56 | NUR ---
PHYSICAL THERAPY Patient is eating lunch at this time. Will check back later. WERNER LOWE TEAM PHYSICIAN
--- NOTE | 2019-04-29 13:59 | NUR ---
PHYSICAL THERAPY Patient presented to therapy in sitting position on EOB with 3 liters of spO2 via nasal canula. Patient was identified by name and on wristband. Patient gives informed consent for treatment. Patient sit to stand from EOB with SBA. Patient ambulated 180' x 1 with Wh Walker and Close Supervision and no LOB and no significant SOB. Patient sat on EOB and performed bilateral LE therapeutic exercises, including heel/toe raises, LAQs, and marches for strengthening the bilateral LEs in order to improve patient's functional mobility. Patient was left sitting on EOB with 3 liters of spO2 connected to wall outlet, call light within reach and tray table near patient. Patient was 1:1 with this STUDENT EDUCATION SPECIALIST for 18 minutes total. WERNER LOWE STUDENT EDUCATION SPECIALIST
[2019-04-29 15:56] VITALS: BP 138/44
[2019-04-29 20:00] VITALS: BP 152/56
--- NOTE | 2019-04-29 21:56 | NUR ---
PATIENT REFUSED THE MENTHOL 2% COOLING GEL TO AFFECTED AREAS. SHE STATED SHE DID NOT NEED IT AT THIS TIME.
[2019-04-30] VITALS: BP 148/105
--- NOTE | 2019-04-30 04:56 | NUR ---
24 HR chart check completed.
[2019-04-30 05:21] LABS: BASO % 0.4 % (0.0-1.0); EOS # 0.2 10*3/uL (0.0-0.4); EOS % 2.4 % (1.0-4.0); HEMATOCRIT 24.6 % (37.0-47.0); HEMOGLOBIN 7.5 g/dl (12.0-16.0); LYMPH # 1.9 10*3/uL (1.3-4.4); LYMPH % 20.8 % (27.0-41.0); MEAN CELL VOLUME 93.9 fl (81.0-99.0); MEAN CORPUSCULAR HGB 28.6 pg (27.0-31.0); MEAN CORPUSCULAR HGB CONC 30.5 g/dl (33.0-37.0); MEAN PLATELET VOLUME 9.6 fl (9.6-12.3); MONO % 10.3 % (3.0-9.0); NEUT % 65.4 % (47.0-73.0); PLATELET COUNT AUTOMATED 250 10*3/uL (130-400); RED BLOOD COUNT 2.62 10*6/uL (4.10-5.10); WHITE BLOOD COUNT 9.2 10*3/uL (4.8-10.8)
[2019-04-30 05:42] LABS: CREATININE 1.27 mg/dL (0.55-1.02); POTASSIUM 3.5 mmol/L (3.5-5.1)
--- NOTE | 2019-04-30 08:21 | NUR ---
PHYSICAL THERAPY PT SITTING EOB WITH 3L O2 VIA NASAL CANULA WITH NURSING STAFF PRESENT UPON ARRIVAL. PT AGREED TO ALL PHYSICAL THERAPY TREATMENT THIS VISIT. PT SEEN 1:1 FOR 15MINS THIS A.M. PT PERFORMED STS FROM EOB WITH BUE FOR ASSISTANCE. PT GAIT TRAINED 100FT X 2 WITH FWW AND SBA WITH VC'S FOR BREATHING TECHNIQUE. PT PERFORMED STS TO EOB WITH USE OF BUE FOR ASSISTANCE. PT REQUIRED SHORT SEATED BREAK BETWEEN EACH GAIT DUE TO C/O FATIGUE. PT SITTING EOB WITH BREAKSFAST ON TRAY AT END OF SESSION. PT CALL LIGHT SITTING AT PTS SIDE AT END OF SESSION. PT REPORTED NO OTHER NEEDS AT THIS TIME. ROSIO BANERJEE MACHINING ENGINEER
--- NOTE | 2019-04-30 08:50 | NUR ---
Spoke with Dr. Peña regarding Hgb level. No new orders, see labs.
--- NOTE | 2019-04-30 09:00 | NUR ---
case management visits with patient, discussed with her if she would need iv antibiotics as an outpatient if she was able to administer them herself. she stated she would have home health and they could administer them, educated her that home health will teach her to do it but they will not be there everytime a dose is due, discussed as a plan if she needed iv antibiotics, a short term snf. she chose [facility] only if she needed iv antibiotics,
--- NOTE | 2019-04-30 13:44 | NUR ---
PHYSICAL THERAPY CO-SIGN I approve of the Physical Therapy notes written above. CEASAR CARRASCO PT,DPT
[2019-04-30] MEDS ORDERED: ZYVOX600 MG PO (14:06)
[2019-04-30 16:00] VITALS: BP 165/64
--- NOTE | 2019-04-30 16:51 | NUR ---
Black tarry stool sample collected and sent to lab.
[2019-04-30 20:00] VITALS: BP 170/68
--- NOTE | 2019-04-30 20:00 | NUR ---
SITTING UP ON BEDSIDE. HEP LOCK INTACT TO RIGHT ARM; SITE ASYMPTOMATIC. SKIN PALE, WARM & DRY. LUNGS CLEAR BUT DIMINISHED BILATERALLY. DRESSING INTACT TO LEFT CALF. +2/+3 EDEMA NOTED TO BILATERL LOWER EXTREMITIES. PT. VOICES NO C/O AT THIS TIME. NO DISTRESS NOTED. CALL LIGHT WITHIN REACH. ALSO 02 VIA NASAL CANNULA AT 3 LITERS INTACT. WILL CONTINUE TO MONITOR.
--- NOTE | 2019-04-30 20:15 | NUR ---
CALLED DR. RIDLEY PERTAINING TO CONSULT. STATED THAT HE WOULD CALL ME BACK.
--- NOTE | 2019-04-30 22:00 | NUR ---
DR. RIDLEY NEVER RETURNED MY PHONE CALL.
[2019-05-01] VITALS: BP 173/59
--- NOTE | 2019-05-01 04:00 | NUR ---
RESTING IN BED WITH EYES CLOSED. RESPIRATIONS EASY & UNLABORED. CALL LIGHT WITHIN REACH.
--- NOTE | 2019-05-01 06:15 | NUR ---
HEP LOCK LEAKING.
--- NOTE | 2019-05-01 06:20 | NUR ---
IV started left wrist with #22 protective cath after 1 attempts. Site prepped with Chloroprep. Sterile dressing applied. Patient tolerated procedure well. IV infusing at cc/hr. OLGA TAYLOR
[2019-05-01 06:58] LABS: BASO # 0.1 10*3/uL (0.0-0.1); BASO % 0.7 % (0.0-1.0); EOS # 0.2 10*3/uL (0.0-0.4); EOS % 2.8 % (1.0-4.0); HEMATOCRIT 27.5 % (37.0-47.0); HEMOGLOBIN 8.5 g/dl (12.0-16.0); LYMPH # 2.1 10*3/uL (1.3-4.4); LYMPH % 24.8 % (27.0-41.0); MEAN CELL VOLUME 94.8 fl (81.0-99.0); MEAN CORPUSCULAR HGB 29.3 pg (27.0-31.0); MEAN CORPUSCULAR HGB CONC 30.9 g/dl (33.0-37.0); MEAN PLATELET VOLUME 9.9 fl (9.6-12.3); MONO # 0.8 10*3/uL (0.1-1.0); MONO % 9.7 % (3.0-9.0); NEUT # 5.3 10*3/uL (2.3-7.9); NEUT % 61.5 % (47.0-73.0); PLATELET COUNT AUTOMATED 298 10*3/uL (130-400); RED CELL DISTRI WIDTH 13.9 % (0-14.5); WHITE BLOOD COUNT 8.6 10*3/uL (4.8-10.8)
[2019-05-01 07:20] LABS: POTASSIUM 3.3 mmol/L (3.5-5.1)
[2019-05-01 07:27] LABS: CREATININE 1.22 mg/dL (0.55-1.02)
[2019-05-01 07:33] LABS: INTERNATIONAL NORM RATIO 1.4 (2.0-3.5)
[2019-05-01 08:00] VITALS: BP 172/67
[2019-05-01 08:01] VITALS: BP 168/80
--- NOTE | 2019-05-01 08:03 | NUR ---
Called Dr. Chang with morning lab results and to verify if patient was to remain NPO. Per physician patient can eat today, H&H in the morning and call Dr. Chang at 0900 with results. H & P was also discussed with physician.
--- NOTE | 2019-05-01 08:30 | NUR ---
Dr. Chang called back to 4E to notify that he would like patient to be NPO. I let him know she just started breakfast, quickly ran to patients room to remove tray and update her of physicians change of order. Notified Dr. Chang that patient consumed 1/3 if a piece of toast. Patient was cooperative and compliant with adjustment. See new orders.
[2019-05-01 12:00] VITALS: BP 177/65
--- NOTE | 2019-05-01 13:05 | NUR ---
Called Dr. Chang to verify whether patients diet can be resumed and if she is ok for discharge. OSWALDO Ivy was to relay message to physician.
--- NOTE | 2019-05-01 13:15 | NUR ---
OSWALDO Pavon called with message from Dr. Chang that patient can be fed. See new orders.
--- NOTE | 2019-05-01 13:20 | NUR ---
CataRN called to ensure I received message from Dr. Chang that patient is clear to eat and discharge.
--- NOTE | 2019-05-01 13:25 | NUR ---
Notified of patient being cleared from GI stand point.
[2019-05-01] MEDS ORDERED: LASIX40 MG PO (13:54)
--- NOTE | 2019-05-01 16:47 | NUR ---
Discharge instructions reviewed with patient/family. Patient receptive and verbalizes understanding. Follow-up care arranged. Written instructions given to patient/family. Patient was wheeled from unit by staff member with all personal belongings accounted for. Patient's daughter picked up Zyvox prescription from in house pharmacy. Patient was educated on medication changes and compliance. Patient was also educated on follow up visit with Dr. Mclean on 05-05-19. ANABELA MOORE J
--- NOTE | 2019-05-03 13:19 | NUR ---
case management notified [facility] that patient was discharged to home over the weekend
== END 2019-05-01 16:47 | disposition home health service (06) | DRG 603 ==
LOC: ED 16:42 → 4E 20:09 → EDHOLD 20:09 → 4E 20:34
PROVIDERS: Internal Medicine; Physician Assistant; Student in an Organized Health Care Education/Training Program; ADMIT Internal Medicine
PROC: 0DJ08ZZ Inspection of Upper Intestinal Tract, Via Natural or Artificial Opening Endoscopic (ICD-10-PCS; principal; 2019-05-01)
DX: L03.116 Cellulitis of left lower limb (principal); N39.0 Urinary tract infection, site not specified; E44.0 Moderate protein-calorie malnutrition; J96.11 Chronic respiratory failure with hypoxia; C18.9 Malignant neoplasm of colon, unspecified; I67.82 Cerebral ischemia; I13.0 Hypertensive heart and chronic kidney disease with heart failure and stage 1 through stage 4 chronic kidney disease, or unspecified chronic kidney disease; I42.9 Cardiomyopathy, unspecified; Z68.41 Body mass index [BMI] 40.0-44.9, adult; E66.01 Morbid (severe) obesity due to excess calories; R73.9 Hyperglycemia, unspecified; D72.810 Lymphocytopenia; M19.90 Unspecified osteoarthritis, unspecified site; F32.9 Major depressive disorder, single episode, unspecified; K27.9 Peptic ulcer, site unspecified, unspecified as acute or chronic, without hemorrhage or perforation; F41.9 Anxiety disorder, unspecified; G25.81 Restless legs syndrome; I35.0 Nonrheumatic aortic (valve) stenosis; E83.41 Hypermagnesemia; I50.9 Heart failure, unspecified; K21.9 Gastro-esophageal reflux disease without esophagitis; J44.9 Chronic obstructive pulmonary disease, unspecified; I25.10 Atherosclerotic heart disease of native coronary artery without angina pectoris; I48.0 Paroxysmal atrial fibrillation; N18.3 Chronic kidney disease, stage 3 (moderate); K57.90 Diverticulosis of intestine, part unspecified, without perforation or abscess without bleeding; F41.0 Panic disorder [episodic paroxysmal anxiety]; D50.9 Iron deficiency anemia, unspecified; G47.33 Obstructive sleep apnea (adult) (pediatric); Z99.81 Dependence on supplemental oxygen; Z79.01 Long term (current) use of anticoagulants; Z95.1 Presence of aortocoronary bypass graft; Z88.6 Allergy status to analgesic agent; Z88.1 Allergy status to other antibiotic agents; Z88.2 Allergy status to sulfonamides; Z88.8 Allergy status to other drugs, medicaments and biological substances; Z91.09 Other allergy status, other than to drugs and biological substances; Z90.710 Acquired absence of both cervix and uterus; Z90.49 Acquired absence of other specified parts of digestive tract; Z95.2 Presence of prosthetic heart valve; Z98.49 Cataract extraction status, unspecified eye; Z82.49 Family history of ischemic heart disease and other diseases of the circulatory system; Z80.0 Family history of malignant neoplasm of digestive organs

== ENCOUNTER → 2019-05-10 | Outpatient (CLI) | payer MEDICARE, OTHER ==
[~2019-05-10] MED LIST changes: +ACCUNEB 0.1.25 MG/1 INH; +FUROSEMIDE40 MG PO
[2019-05-10 08:05] LABS: BUN 23 mg/dl (7-24); CHLORIDE 105 mmol/L (98-107); CHOLESTEROL 174 mg/dL (<200); CREATININE 1.07 mg/dL (0.55-1.02); HDL CHOLESTEROL 67 mg/dl (40-60); LDL CHOLESTEROL 80 mg/dL (9-159); POTASSIUM 3.6 mmol/L (3.5-5.1); SODIUM 140 mmol/L (136-145); TRIGLYCERIDES 136 mg/dl (<150); VLDL CHOLESTEROL 27 mg/dL (6-40)
[2019-05-10 08:07] LABS: ALKALINE PHOSPHATASE 73 U/L (45-117); SGOT/AST 14 IU/L (3-35); SGPT/ALT 18 U/L (12-78); TOTAL PROTEIN 6.8 gm/dL (6.4-8.2)
== END | disposition home or self-care (01) ==
LOC: LAB 07:11
PROVIDERS: Internal Medicine Endocrinology, Diabetes & Metabolism
DX: E55.9 Vitamin D deficiency, unspecified (principal); E27.49 Other adrenocortical insufficiency; E66.01 Morbid (severe) obesity due to excess calories; Z79.899 Other long term (current) drug therapy

== ENCOUNTER → 2019-05-28 | Day surgery (SDC) | payer MEDICARE, OTHER ==
[~2019-05-28] VITALS: Ht 160 cm; Wt 105.2 kg
--- NOTE | ~2019-05-28 | O ---
[place], [place] OPERATIVE NOTE NAME: CATHY VARGAS UNIT #: [id number] ROOM: DOCTOR: KHAI PICHARDORAFAEL BIRTHDATE: [birth year] DOS: 05/28/2019 GASTROENDOSCOPIC REPORT INDICATION: A 78-year-old patient who has presented with a chief complaint of change in bowel habit, liquid stool, dyspepsia. PAST MEDICAL HISTORY: High-grade cecal dysplasia. PAST MEDICAL HISTORY: Adrenal insufficiency, large tubulovillous adenoma, diverticulosis. Cecal polyp with high-grade lesion. PROCEDURE: Today's procedure part of investigation is panendoscopy and polypectomy, sigmoid colon. PREMEDICATION: Propofol. Gastroscope Q10 video. REPORT: After putting the patient in left lateral position and application of lubricant to the scope, the scope was introduced. Thereafter, under direct visualization, advanced through the length of esophagus without difficulty. Gastric pouch was entered. Evidence of gastritis seen. Duodenal bulb, second and third part within normal limits. The patient extubated after Antral biopsy obtained, tolerated the procedure well. IMPRESSION: Gastritis, status post biopsy. PLAN AND DISCUSSION: We are going to proceed with colonoscopy. As far as the medication for above is concerned, we are going to continue with Prilosec 20 mg b.i.d. Furthermore, we are going to proceed with colonoscopic examination regarding concern about pathology of the cecum. PROCEDURE: Today's procedure part of investigation is colonoscopy plus snare polypectomy of the sigmoid colon. PREMEDICATION: Propofol. SCOPE: Olympus forward-viewing colonoscope 10L video. DESCRIPTION OF PROCEDURE: After putting the patient in left lateral position and application of lubricant to the scope, the scope was introduced. Thereafter, under direct visualization, advanced through the length of colon without difficulty. ____ approached to the right colon with liquid stool, occupies mid ascending colon and beyond with great difficulty, some of the stool was cleaned; however we were not able to clearly define the pathology. Due to retained liquid retained liquid stool. The patient extubated, tolerated the procedure well. IMPRESSION: Polypoid lesion in sigmoid colon, status post snare polypectomy, retained stool in mid ascending colon and beyond. [place], [place] OPERATIVE NOTE NAME: CATHY VARGAS UNIT #: [id number] ROOM: DOCTOR: KHAI PICHARDO,RAFAEL BIRTHDATE: [birth year] PLAN: We are concerned about the presence of possible polypoid dysplasia cecum after discussed this matter with her to see if we have to redo this colonoscopy. I will reorganize for her cecectomy. 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 RAFAEL RIDLEY MD CM:OPRECORD:OPERATIVE NOTE [id number] RAFAEL RIDLEY MD 05/28/19 1739 interface
[2019-05-28 14:45] VITALS: BP 200/99
[2019-05-28 16:19] VITALS: BP 141/49
[2019-05-28 16:34] VITALS: BP 163/49
[2019-05-28 16:49] VITALS: BP 170/69
== END | disposition home or self-care (01) ==
LOC: SDC 05-27 14:00
DX: R19.4 Change in bowel habit (principal); D12.5 Benign neoplasm of sigmoid colon; K29.50 Unspecified chronic gastritis without bleeding; Z87.19 Personal history of other diseases of the digestive system; I12.9 Hypertensive chronic kidney disease with stage 1 through stage 4 chronic kidney disease, or unspecified chronic kidney disease; N18.3 Chronic kidney disease, stage 3 (moderate); K21.9 Gastro-esophageal reflux disease without esophagitis; J44.9 Chronic obstructive pulmonary disease, unspecified; Z79.01 Long term (current) use of anticoagulants; Z90.710 Acquired absence of both cervix and uterus; Z98.890 Other specified postprocedural states; Z79.899 Other long term (current) drug therapy; Z86.73 Personal history of transient ischemic attack (TIA), and cerebral infarction without residual deficits

== ENCOUNTER → 2019-06-08 | Outpatient (CLI) | payer MEDICARE, OTHER ==
[2019-06-08 08:38] LABS: BASO # 0.1 10*3/uL (0.0-0.1); BASO % 0.8 % (0.0-1.0); EOS # 0.3 10*3/uL (0.0-0.4); EOS % 3.6 % (1.0-4.0); HEMATOCRIT 28.8 % (37.0-47.0); HEMOGLOBIN 8.9 g/dl (12.0-16.0); LYMPH # 2.2 10*3/uL (1.3-4.4); LYMPH % 27.2 % (27.0-41.0); MEAN CELL VOLUME 92.3 fl (81.0-99.0); MEAN CORPUSCULAR HGB 28.5 pg (27.0-31.0); MEAN CORPUSCULAR HGB CONC 30.9 g/dl (33.0-37.0); MEAN PLATELET VOLUME 10.2 fl (9.6-12.3); MONO # 0.7 10*3/uL (0.1-1.0); MONO % 8.6 % (3.0-9.0); NEUT # 4.9 10*3/uL (2.3-7.9); NEUT % 59.4 % (47.0-73.0); PLATELET COUNT AUTOMATED 293 10*3/uL (130-400); RED BLOOD COUNT 3.12 10*6/uL (4.10-5.10); RED CELL DISTRI WIDTH 14.2 % (0-14.5); WHITE BLOOD COUNT 8.3 10*3/uL (4.8-10.8)
== END | disposition home or self-care (01) ==
LOC: LAB 07:49
PROVIDERS: Family Medicine
DX: D64.9 Anemia, unspecified (principal)

== ENCOUNTER 2019-11-18 16:12 | Inpatient (IN) | payer MEDICARE, OTHER ==
[~2019-11-18] VITALS: Ht 160 cm; Wt 104.9 kg
--- NOTE | 2019-11-18 16:12 | NUR ---
PATIENT IS VERY CLAUSTERPHOBIC, REFUSING TO ALLOW THE SIDE RAIL TO BE PLACED UP FOR SAFETY. FALL RISK.
[2019-11-18 16:17] VITALS: BP 218/100
[2019-11-18 16:36] VITALS: BP 193/100
--- NOTE | 2019-11-18 16:48 | NUR ---
LIZBET BEAN CALLED FOR AN UPDATE. PT GAVE VERBAL PERMISSION TO SPEAK WITH HER.
--- NOTE | 2019-11-18 16:50 | NUR ---
PATIENT REFUSING TO GOT TO CT AT THIS TIME. STATES THAT SHE IS VERY CLAUSTROPHOBIC AND IS REQUESTING ATIVAN. MADE AWARE.
[2019-11-18 16:51] LABS: BASO # 0.1 10*3/uL (0.0-0.1); BASO % 0.6 % (0.0-1.0); EOS # 0.2 10*3/uL (0.0-0.4); EOS % 2.2 % (1.0-4.0); HEMATOCRIT 25.4 % (37.0-47.0); LYMPH # 1.3 10*3/uL (1.3-4.4); LYMPH % 13.6 % (27.0-41.0); MEAN CELL VOLUME 90.1 fl (81.0-99.0); MEAN CORPUSCULAR HGB CONC 29.9 g/dl (33.0-37.0); MEAN PLATELET VOLUME 9.5 fl (9.6-12.3); MONO # 0.7 10*3/uL (0.1-1.0); MONO % 7.7 % (3.0-9.0); NEUT # 7.2 10*3/uL (2.3-7.9); NEUT % 75.6 % (47.0-73.0); PLATELET COUNT AUTOMATED 289 10*3/uL (130-400); RED BLOOD COUNT 2.82 10*6/uL (4.10-5.10); RED CELL DISTRI WIDTH 14.6 % (0-14.5); WHITE BLOOD COUNT 9.5 10*3/uL (4.8-10.8)
[2019-11-18 16:59] LABS: BILIRUBIN NEGATIVE (NEGATIVE); BLOOD TRACE-INTACT (NEGATIVE); CLARITY CLEAR (CLEAR); COLOR YELLOW (YELLOW); GLUCOSE NEGATIVE (NEGATIVE); KETONE NEGATIVE (NEGATIVE); PH 8.5 (5.0-9.0)
[2019-11-18 17:00] LABS: LEUKO ESTERASE 2+ (NEGATIVE); NITRITE NEGATIVE (NEGATIVE); UROBILINOGEN 0.2 E.U./dl (0.2-1.0)
[2019-11-18 17:01] LABS: ACT PARTIAL THROMBO TIME 34.6 SECONDS (20.0-32.1); INTERNATIONAL NORM RATIO 1.7 (2.0-3.5)
--- NOTE | 2019-11-18 17:01 | NUR ---
EKG IN WITH PT AT THIS TIME. PATIENT IS A FALL RISK AND REFUSING TO ALLOW THE SIDERAIL TO BE UP.
[2019-11-18 17:04] LABS: BACTERIA TRACE
[2019-11-18 17:09] LABS: ALBUMIN 2.8 gm/dl (3.1-4.5); CREATININE 1.29 mg/dL (0.55-1.02); POTASSIUM 3.9 mmol/L (3.5-5.1); TOTAL PROTEIN 6.9 gm/dL (6.4-8.2); TROPONIN I 0.031 ng/ml (<0.045)
--- NOTE | 2019-11-18 17:39 | NUR ---
WAS GIVEN VERBAL PERMISSION FOR PT TO SPEAK TO BELIA BEAN VIA PHONE.
--- NOTE | 2019-11-18 18:06 | NUR ---
PT INSISTANT ON SITTING ON SIDE OF THE BED WITH LEGS DANGLING. SO BED RAIL IS DOWN. WILL MONITOR.
[2019-11-18 19:25] VITALS: BP 180/80
[2019-11-18 19:53] VITALS: BP 135/55
[2019-11-18 20:00] VITALS: BP 146/52
--- NOTE | 2019-11-18 20:00 | NUR ---
A 79, admitted to 4E, under the services of GUILLAUME Zamarripa DO with a diagnosis of LEFT ANKLE SPRAIN. Chief complaint is LEFT ANKLE PAIN. Patient arrived via ambulance from ER. Monitor applied. Initial assessment completed. Vital signs taken and recorded. GUILLAUME ZAMARRIPA DO notified of admission to the unit. Orders received. See assessment for past medical history, medications and allergies. Patient and/or family oriented to unit. visitation policy reviewed. Clothing/patient valuable form completed. AUSTIN ARROYO
[2019-11-18] MEDS ORDERED: SYNTHROID25 MCG PO (20:25)
--- NOTE | 2019-11-18 20:49 | NUR ---
DR. CERVANTES NOTIFIED THAT PATIENT'S HOME MED REQ IS UP TO DATE.
--- NOTE | 2019-11-18 21:25 | NUR ---
PATIENT MEDICATED WITH NORCO FOR COMPLAINTS OF LEFT ANKLE PAIN. WILL CONTINUE TO MONITOR. CALL LIGHT IN REACH.
[2019-11-19] VITALS (16 sets, daily range): BP systolic 118–176; BP diastolic 45–70
--- NOTE | 2019-11-19 04:30 | NUR ---
CATHY VARGAS [id number] Please refer to the physician's history and physical for past medical history, comorbid conditions, and allergies. Diagnosis: HYPERTENSIVE EMERGENCY,SYNCOPE,LEFT ANKLE SPRAIN Mao Score: 17,AT RISK WOUND DESCRIPTIONS: Wound Number: 1 Location of the wound: Right lower extremity Thickness: Full Size: 20.0cm x 46.0cm x 0.1cm Tunneling: none Undermining: none Sinus Tract: none Presence of Exudate: none Amount: none Color: Red, yellow Odor: None Periwound Skin Appearance: Erythema, warmth, edema Wound edges: approximated Pain (associated with wound): tender to touch How does patient state this happened? pt stated this started about 1 week ago and she follows with Dr. Mclean and Dr. Corey for theses areas to her legs Wound Number: 2 Location of the wound: Left lower extremity Thickness: Full Size: 21.0cm x 47.5cm x 0.1cm Tunneling: none Undermining: none Sinus Tract: none Presence of Exudate: none Amount: none Color: Red, yellow Odor: None Periwound Skin Appearance: Erythema, warmth, edema Wound edges: approximated Pain (associated with wound): tender to touch How does patient state this happened? pt stated this started about 1 week ago and she follows with Dr. Mclean and Dr. Corey for theses areas to her legs Patient has multiple bruises noted to bilateral lower extremities as well as bilateral upper extremities. Surface the patient is resting on: Isoflex SKIN PREVENTION RECOMMENDATION: 1. Pressure redistribution support surface as appropriate 2. Elevate heels 3. Remove boots/TEDS every shift and reapply 4. Head of bed 30 degrees as tolerated 5. Assess nutrition and hydration 6. Manage moisture 7. Avoid the use of containment devices while in bed 8. Use absorptive products on surfaces limit layers of linens on bed 9. Turn and reposition every 1-2 hours in bed and every 1 hour in chair as tolerated 10. Weight shifts every 15 minutes while up in chair 11. Offloading with pillows or device to keep heels elevated off bed 12. Monitor skin at least every shift 13. Inspect under medical devices twice a day WOUND TREATMENT RECOMMENDATIONS: Consult podiatry for areas to bilateral lower extremities and is known patient Venous and arterial studies to bilateral lower extremities. Heel raiser pro boots to bilateral feet while in bed. Cleanse bilateral lower extremities with soap and water and apply lac hydrin bid. Patient states she will continue to follow up with Dr. Mclean and Dr. Corey upon discharge.
--- NOTE | 2019-11-19 05:35 | NUR ---
DR. [facility] [employer] MANAGER SERVICE NOTIFIED OF CONSULT FOR PATIENT FOR LOWER LEG ULCER.
[2019-11-19 06:10] LABS: HEMATOCRIT 21.6 % (37.0-47.0); MEAN CELL VOLUME 89.3 fl (81.0-99.0); MEAN CORPUSCULAR HGB 26.4 pg (27.0-31.0); MEAN CORPUSCULAR HGB CONC 29.6 g/dl (33.0-37.0); MEAN PLATELET VOLUME 9.9 fl (9.6-12.3); PLATELET COUNT AUTOMATED 258 10*3/uL (130-400); RED BLOOD COUNT 2.42 10*6/uL (4.10-5.10); RED CELL DISTRI WIDTH 14.6 % (0-14.5); WHITE BLOOD COUNT 8.7 10*3/uL (4.8-10.8)
[2019-11-19 06:26] LABS: CREATININE 1.18 mg/dL (0.55-1.02); PHOSPHOROUS 2.9 mg/dL (2.5-4.9); POTASSIUM 3.9 mmol/L (3.5-5.1)
--- NOTE | 2019-11-19 06:26 | NUR ---
DR. CARMONA NOTIFIED OF CRITICAL HEMOGLOBIN OF 6.4
[2019-11-19 06:37] LABS: THYROID STIM HORMONE (HS) 2.08 uIU/ml (0.358-4.75)
[2019-11-19 07:01] LABS: TOTAL CELLS COUNTED 100 #CELLS
[2019-11-19 07:02] LABS: PLATELET SUFFICIENCY NORMAL (NORMAL); POLYCHROMASIA SLIGHT; STOMATOCYTE FEW
[2019-11-19 07:17] LABS: INTERNATIONAL NORM RATIO 1.6 (2.0-3.5)
[2019-11-19 07:17] LABS: VITAMIN D, 25-HYDROXY 38.7 ng/mL (30-100)
--- NOTE | 2019-11-19 07:39 | NUR ---
PHYSICAL THERAPY Screen and eval received will follow thank you. Steffanie Abreu PT
--- NOTE | 2019-11-19 09:18 | NUR ---
Nursing screen and occupational therapy orders received. Will follow up with patient for her OT evaluation. Thank you. Norma Frias, OTR/L
--- NOTE | 2019-11-19 09:57 | NUR ---
Occupational therapy orders received and chart reviewed. Per nursing, patient was getting a blood transfusion. Will follow up with the patient for completion of an OT evaluation at a later date. Thank you. Norma Frias, OTR/L
--- NOTE | 2019-11-19 09:59 | NUR ---
PHYSICAL THERAPY PT evaluation attempted. Patient receiving blood transfusion at this time. Will return at a later time/date to complete PT evaluation. Thank you. Heydi Arora,PT,DPT.
--- NOTE | 2019-11-19 11:39 | NUR ---
Assistant Mechanic in to talk to patient. Patient states lives at [facility] with ALONE. There are NO steps in the home. Physician: TIANNA Pharmacy: [facility] Home health services: [facility] 3 DAYS A WEEK, 3 HOURS A DAY AIDES Patient's level of ADLs: INDEPENDENT Patient has working utilities: YES DME: [facility] Follow-up physician's appointment after d/c: WILL BE MADE BY HOSPITALIST NURSE DIRECTOR ON DISCHARGE Does patient want to access PORTAL?: NO Discharge plan PT LIVES AT HOME ALONE AND IS INDEPENDENT IN HER CARE. STATES HER ANKLE IS VERY PAINFUL AND SHE IS UNABLE TO WALK ON IT AT THIS TIME. TALKED TO HER ABOUT GOING TO A SNF BEFORE RETURNING HOME. SHE STATES SHE DOES NOT WANT TO GO SHE WOULD RATHER GO HOME AND HAVE THERAPY THERE. EXPLAINED SHE MAY NEED MORE THERAPY THEN SHE COULD GET AT HOME. STATES SHE WILL THINK ABOUT IT. TOLD HER I WOULD CALL HER BACK AFTER SHE HAS BEEN SEEN BY PHYSICAL THERAPY TO SEE IF SHE HAS MADE A DECISION. WILL CONTINUE TO FOLLOW.. NEY SMITH
--- NOTE | 2019-11-19 13:20 | NUR ---
PHYSICAL THERAPY Physical Therapy evaluation completed on 4E with full evaluation to follow. Moderate complexity PT evaluation per chart review and evaluation, [id number]. Recommend physical therapy per plan of care and SNF upon discharge. Thank you for this referral. Heydi Arora,PT,DPT
--- NOTE | 2019-11-19 13:20 | NUR ---
Occupational Therapy evaluation completed on four with full evaluation to follow. Recommend occupational therapy per plan of care and SNF upon discharge. Thank you for this referral. Norma Frias OTR/L
--- NOTE | 2019-11-19 14:32 | NUR ---
SPOKE WITH PT ABOUT SNF STAY. SHE IS IN AGREEMENT TO GO BUT DOES NOT KNOW WHERE SHE WANTS TO GO. WILL THINK ABOUT IT AND TALK IT OVER WITH FAMILY AND LET ME KNOW.
[2019-11-19 15:48] LABS: BASO # 0.1 10*3/uL (0.0-0.1); BASO % 0.6 % (0.0-1.0); EOS # 0.2 10*3/uL (0.0-0.4); EOS % 2.7 % (1.0-4.0); HEMATOCRIT 24.1 % (37.0-47.0); LYMPH # 1.1 10*3/uL (1.3-4.4); LYMPH % 12.6 % (27.0-41.0); MEAN CELL VOLUME 89.9 fl (81.0-99.0); MEAN CORPUSCULAR HGB 27.2 pg (27.0-31.0); MEAN CORPUSCULAR HGB CONC 30.3 g/dl (33.0-37.0); MEAN PLATELET VOLUME 8.7 fl (9.6-12.3); MONO # 1.3 10*3/uL (0.1-1.0); MONO % 15.2 % (3.0-9.0); NEUT # 5.8 10*3/uL (2.3-7.9); NEUT % 68.3 % (47.0-73.0); PLATELET COUNT AUTOMATED 238 10*3/uL (130-400); RED BLOOD COUNT 2.68 10*6/uL (4.10-5.10); RED CELL DISTRI WIDTH 14.5 % (0-14.5); WHITE BLOOD COUNT 8.4 10*3/uL (4.8-10.8)
--- NOTE | 2019-11-19 20:24 | NUR ---
SECOND UNIT OF BLOOD STARTING TO TRANSFUSE.
--- NOTE | 2019-11-19 23:00 | NUR ---
BLOOD TRANSFUSION COMPLETED. PATIENT TOLERATED WELL
[2019-11-20] VITALS: BP 154/41
[2019-11-20 06:17] LABS: BASO % 0.4 % (0.0-1.0); EOS # 0.1 10*3/uL (0.0-0.4); EOS % 1.1 % (1.0-4.0); HEMATOCRIT 25.8 % (37.0-47.0); LYMPH # 1.3 10*3/uL (1.3-4.4); LYMPH % 15.3 % (27.0-41.0); MEAN CELL VOLUME 89.3 fl (81.0-99.0); MEAN CORPUSCULAR HGB 27.7 pg (27.0-31.0); MEAN PLATELET VOLUME 9.8 fl (9.6-12.3); MONO # 1.2 10*3/uL (0.1-1.0); MONO % 14.4 % (3.0-9.0); NEUT # 5.8 10*3/uL (2.3-7.9); NEUT % 68.4 % (47.0-73.0); PLATELET COUNT AUTOMATED 226 10*3/uL (130-400); RED BLOOD COUNT 2.89 10*6/uL (4.10-5.10); RED CELL DISTRI WIDTH 14.3 % (0-14.5); WHITE BLOOD COUNT 8.4 10*3/uL (4.8-10.8)
[2019-11-20 06:32] LABS: CREATININE 1.26 mg/dL (0.55-1.02); POTASSIUM 3.9 mmol/L (3.5-5.1)
[2019-11-20 06:34] LABS: INTERNATIONAL NORM RATIO 1.5 (2.0-3.5)
[2019-11-20 08:00] VITALS: BP 169/58
[2019-11-20 12:00] VITALS: BP 184/60
[2019-11-20 16:00] VITALS: BP 145/44
--- NOTE | 2019-11-20 17:23 | NUR ---
[facility] GIVEN PER REQUEST FOR SYPTOMS OF GERD. WILL MONITOR.
[2019-11-20 20:00] VITALS: BP 158/49
[2019-11-21] VITALS: BP 150/60
--- NOTE | 2019-11-21 03:11 | NUR ---
24 HR chart check completed.
[2019-11-21 05:56] LABS: BASO % 0.5 % (0.0-1.0); EOS # 0.2 10*3/uL (0.0-0.4); EOS % 2.9 % (1.0-4.0); HEMATOCRIT 25.6 % (37.0-47.0); LYMPH # 1.5 10*3/uL (1.3-4.4); LYMPH % 18.1 % (27.0-41.0); MEAN CELL VOLUME 89.5 fl (81.0-99.0); MEAN CORPUSCULAR HGB 27.3 pg (27.0-31.0); MEAN CORPUSCULAR HGB CONC 30.5 g/dl (33.0-37.0); MEAN PLATELET VOLUME 9.8 fl (9.6-12.3); MONO # 0.9 10*3/uL (0.1-1.0); MONO % 11.4 % (3.0-9.0); NEUT # 5.4 10*3/uL (2.3-7.9); NEUT % 66.9 % (47.0-73.0); PLATELET COUNT AUTOMATED 250 10*3/uL (130-400); RED BLOOD COUNT 2.86 10*6/uL (4.10-5.10); RED CELL DISTRI WIDTH 14.4 % (0-14.5); WHITE BLOOD COUNT 8.1 10*3/uL (4.8-10.8)
[2019-11-21 06:22] LABS: CREATININE 1.15 mg/dL (0.55-1.02); POTASSIUM 3.7 mmol/L (3.5-5.1)
--- NOTE | 2019-11-21 06:28 | NUR ---
HOSPITALIST NUMBER CALLED. NOTIFIED OF POSITIVE URINE CULTURE.
--- NOTE | 2019-11-21 07:50 | NUR ---
DR ALMARAZ IN TO SEE PATIENT
[2019-11-21 07:55] LABS: INTERNATIONAL NORM RATIO 1.2 (2.0-3.5)
--- NOTE | 2019-11-21 10:02 | NUR ---
PRN NORCO PO IS GIVEN AT THIS TIME FOR COMPLAINTS OF PAIN IN HER KNEES. CALL LIGHT WITHIN REACH, WILL CONTINUE TO MONITOR
[2019-11-21 12:00] VITALS: BP 124/50
[2019-11-21 16:00] VITALS: BP 150/50
--- NOTE | 2019-11-21 17:48 | NUR ---
CALLED DR CASTAÑEDA PER PT REQUEST SHE STATES SHE IS "ALLERGIC TO SINGULAIR" AND IT HAS BEEN GIVEN TO HER THE PAST 2 DAYS AND THAT IS NOT WHAT SHE TAKES AT HOME, CALLED AND INFORMED HIM OF THE MED SHE DOES TAKE AND HE IS GOING TO ADD THE ORDER
--- NOTE | 2019-11-21 19:00 | NUR ---
ASSUMED CARE FOR THIS PT AT THIS TIME. NO C/O VOICED AT THIS TIME. LT ANKLE ECCHY W/SWELLING NOTED. ABD FOLDS RED/EXCORIATED. WILL ASK MD FOR NYSTATIN. CALL LIGHT IN REACH.
[2019-11-21 20:00] VITALS: BP 168/41
--- NOTE | 2019-11-21 21:38 | NUR ---
DR. MC NOTIFIED OF PT'S RED/EXCORIATED GROIN/ABD FOLDS. T.O. RCVD FOR NYSTATIN POWDER TOPICALLY EVERY 12 HRS.
--- NOTE | 2019-11-21 23:30 | NUR ---
DR. MC NOTIFIED OF PT'S ELEVATED BP. CONTINUE TO MONITOR AND CALL IF CONTINUES TO BE ELEVATED.
[2019-11-22] VITALS: BP 160/58
--- NOTE | 2019-11-22 00:13 | NUR ---
pt medicated w/norco for c/o bilateral knee pain 11/18. pt repositioned for comfort.
[2019-11-22 02:18] VITALS: BP 148/72
--- NOTE | 2019-11-22 04:26 | NUR ---
Upon discharge recommend patient to follow up for wound care in outpatient setting continue current wound care orders at discharging facility.
[2019-11-22 06:05] LABS: BASO % 0.4 % (0.0-1.0); EOS # 0.3 10*3/uL (0.0-0.4); EOS % 3.3 % (1.0-4.0); LYMPH # 1.1 10*3/uL (1.3-4.4); LYMPH % 13.1 % (27.0-41.0); MEAN CELL VOLUME 90.9 fl (81.0-99.0); MEAN CORPUSCULAR HGB 27.7 pg (27.0-31.0); MEAN CORPUSCULAR HGB CONC 30.4 g/dl (33.0-37.0); MEAN PLATELET VOLUME 9.8 fl (9.6-12.3); MONO # 0.9 10*3/uL (0.1-1.0); MONO % 10.3 % (3.0-9.0); NEUT # 6.1 10*3/uL (2.3-7.9); NEUT % 72.5 % (47.0-73.0); PLATELET COUNT AUTOMATED 256 10*3/uL (130-400); RED BLOOD COUNT 2.64 10*6/uL (4.10-5.10); RED CELL DISTRI WIDTH 14.4 % (0-14.5); WHITE BLOOD COUNT 8.4 10*3/uL (4.8-10.8)
[2019-11-22 06:22] LABS: CREATININE 1.27 mg/dL (0.55-1.02); POTASSIUM 4.2 mmol/L (3.5-5.1)
--- NOTE | 2019-11-22 07:20 | NUR ---
DAMON IN PHARMACY PHONED RE OMEPRAZOLE, DULERA, COUMADIN NOT BEING CONTINUED. HE WILL TAKE A LOOK AT THEM AND ORDER THEM.
--- NOTE | 2019-11-22 07:56 | NUR ---
IN PT ROOM AT THIS TIME, PT STATES THAT SHE IS FEELING GOOD AT THIS TIME, AND IS NOT SURE IF SHE WILL BE ABLE TO GET HER LEG MOVING FOR THERAPY TODAY. SHE STATES THAT SHE WANTS TO TAKE HER 1000 MEDICATIONS NOW. CALL LIGHT WITHIN REACH, WILL CONTINUE TO MONITOR
--- NOTE | 2019-11-22 09:27 | NUR ---
SENIOR ACCOUNT EXECUTIVE attempted to reach patient via phone. Patient did not answer. Will need SNF decision for placement.
--- NOTE | 2019-11-22 09:35 | NUR ---
DR ALMARAZ IN TO SEE PATIENT
--- NOTE | 2019-11-22 09:36 | NUR ---
OUTCOMES ANALYST TALKED WITH PT, PT STATES SHE DOES NOT WANT TO GO TO A FACILITY. STATES SHE IS WAITING FOR THERAPY TO SEE HOW SHE DOES TODAY. STATES IF I CAN GET IN MY HOUSE I WILL BE FINE. DOES AGREE TO [facility] FOR NURSE AND THERAPY. ALSO RECEIVED A CALL FROM PT OUTCOMES ANALYST WHO STATES SHE WILL CALL [facility] TO SEE IF THEY HAVE STAFF AVAILABLE TO SEE PT EVERYDAY.
--- NOTE | 2019-11-22 10:03 | NUR ---
PRN NORCO GIVEN AT THIS TIME DUE TO PAIN AND PT/OT ON THE FLOOR GETTING READY TO SEE THE PATIENT. CALL LIGHT WITHIN REACH, WILL CONTINUE TO MONITOR
--- NOTE | 2019-11-22 10:50 | NUR ---
PHYSICAL THERAPY Patient seen this am 1;1 for therapy visit and was supine in bed upon therapist arrival. Patient identified by name / and presented with continuos O2-3L via NC, which reamined WFL's throughout entire treament. OT special events assistant was also present this session for observation only as patient voiced only mild L LE discomfort secondary to increased L dorsum of foot edema. Patient was instructed on proper Don/Doff of L LE CAM boot and needed Therapist assist to safely fit device. Patient voiced increased pressure over Dorsum of foot and antierior tibialis while adjusting boot straps for comfort. Patient transfers supine to sit EOB with SBA and was a little nervous prior to attempting sit to stand. Patient able to complete sit to stand, MIN A x 2, use of wh walker standing support and demonstrated initial "slouched" posture. Patient able to self correct following v/c and able to take 2-3 fwd / bkwd steps, demonstrating very cautious step sequence. Patient reported no increase in pain c/o, L LE and returned to supine in bed, MIN A. Patient remained in bed with call light, tray table, telephone and bed alarm for safety. Will continue per POC as tolerated, total treatment time 14 minutes. Jesse Falcon, EMD SPECIAL EDUCATION TEACHER
--- NOTE | 2019-11-22 11:06 | NUR ---
OT NOTE Pt was seen this A.M. 1:1 for 20 minute OT session. Upon arrival pt was supine in bed. Pt identified by name and and had complaints of 4/10 L ankle pain. Pt presented to therapy with continuous 3L-O2 via NC which she remained on throughout the entire session. Pt transferred supine to sit EOB with SBA. While sitting EOB therapist donned cam boot to LLE and pt donned R shoe with SBA. Pt completed multiple sit to stand transfers from bed level with Yogesh X 2 and use of w/w for UE support. Challenged pt's static standing tolerance needed for increased I in self care tasks and functional transfers, pt was able to tolerate aprox 2 minutes at a time before sitting due to fatigue. Pt then took aprox 3 steps up to head of bed with CGA and use of w/w with verbal prompts for proper step sequence. Pt then transferred back into bed sit to supine with SBA. There she was left with call light in hand, tray table in place, and bed alarm activated for safety. Continue with rec D/C plan to SNF. JUMANA Baca/Johnny
[2019-11-22 12:00] VITALS: BP 186/45
--- NOTE | 2019-11-22 15:20 | NUR ---
REFERRAL FAXED TO [facility].
[2019-11-22 16:00] VITALS: BP 176/56
--- NOTE | 2019-11-22 16:41 | NUR ---
PT COMPLAINING OF PAIN IN LEFT KNEE. PRN NORCO PO GIVEN. PT ALSO STATES SHE WANTS HER 1800 MEDS NOW SO THAT SHE IS ABLE TO EAT DINNER SOON, RATHER THAN HAVE TO TAKE HER MEDICATIONS LATE.
--- NOTE | 2019-11-22 19:00 | NUR ---
ASSUMED CARE FOR THIS PT AT THIS TIME. PT ASSISTED ONTO BEDPAN. PT CONTINENT OF LG BM. NO BLOOD NOTED. CALL [facility] IN REACH.
[2019-11-22 20:00] VITALS: BP 164/64
--- NOTE | 2019-11-22 20:47 | NUR ---
DR. ARAUJO NOTIFIED OF GLUCOSE REFLUX OF 518. RECHECK IN 2 HRS.
[2019-11-23] VITALS: BP 158/60
[2019-11-23 06:12] LABS: BASO # 0.1 10*3/uL (0.0-0.1); BASO % 0.8 % (0.0-1.0); EOS # 0.8 10*3/uL (0.0-0.4); EOS % 10.6 % (1.0-4.0); HEMATOCRIT 24.2 % (37.0-47.0); LYMPH # 1.5 10*3/uL (1.3-4.4); LYMPH % 19.6 % (27.0-41.0); MEAN CORPUSCULAR HGB 27.4 pg (27.0-31.0); MEAN CORPUSCULAR HGB CONC 30.2 g/dl (33.0-37.0); MEAN PLATELET VOLUME 9.4 fl (9.6-12.3); MONO # 0.9 10*3/uL (0.1-1.0); NEUT # 4.4 10*3/uL (2.3-7.9); NEUT % 56.6 % (47.0-73.0); PLATELET COUNT AUTOMATED 264 10*3/uL (130-400); RED BLOOD COUNT 2.66 10*6/uL (4.10-5.10); RED CELL DISTRI WIDTH 14.5 % (0-14.5); WHITE BLOOD COUNT 7.7 10*3/uL (4.8-10.8)
[2019-11-23 06:37] LABS: CREATININE 1.25 mg/dL (0.55-1.02)
[2019-11-23 08:00] VITALS: BP 190/56
--- NOTE | 2019-11-23 09:44 | NUR ---
PT STATES SHE IS HAVING PAIN IN HER LEFT KNEE AND WANTS TO TAKE A PAIN MEDICATION BEFORE SHE GETS UP TO DO HER PT/OT. PRN NORCO PO GIVEN AT THIS TIME. CALL LIGHT WITHIN REACH, WILL CONTINUE TO MONITOR
--- NOTE | 2019-11-23 10:00 | NUR ---
PHYSICAL THERAPY Patient seen this am 1;1 for therapy visit and was supine in bed upon therapist arrival. Patient identified by name / and reports feeling "achy" all over with increased L LE edema. OT case management assistant was also present this session for observation only as patient presented with continuous O2-3L via NC. Patient transfers supine to sit EOB with SBA, and attempting Donning L LE CAM boot, however only able to slip boot on, but too difficult to fasten 5 velcro loop straps. Patient states she has a daughter who lives nearby who she plans to ask for help PRN, along with HH aides as scheduled upon return home. Patient is also WBAT on L LE, completing sit to stand transfer, CGA x 1, use of walker standing support. Patient ambulated 12'x 1, around bed, wh walker, CGA, demonstrating "step to" javed with "slouched" standing posture. Patient needed v/c to breathe as she has tendency to hold her breath at times. Patient returned to supine in bed with increased fatigue and remained with call light, tray table, telephone and bed alarm for safety. Patient also needed therapist assist to remove CAM boot L LE and will continue per POC as tolerated. Total treatment time 14 minutes. Jesse Falcon, CADMIUM PLATER
--- NOTE | 2019-11-23 10:20 | NUR ---
OT NOTE Pt was seen this A.M. 1:1 for 25 minute OT session. Upon arrival pt was supine in bed. Pt identified by name and and had complaints of 6/10 L ankle pain. Pt presented to therapy with continuosu 3L-O2 via NC which she remained on throughout the entire session. Pt transferred supine to sit EOB with SBA. While sitting EOB pt was educated on proper donning of LLE cam boot for increased I and enhanced safety upon return home. Pt attempted to coleman and required modA for assist with sequencing, fit, and managing the straps. Sit to stand then completed from bed level with CGA and use of w/w for UE support. Functional mobility was then completed around the bed to the bathroom with CGA and use of w/w. Pt required a seated rest break once arriving to the bathroom door. Pt then required verbal prompts for walker safety due to becoming impulsive and presenting with poor safety awareness. While sitting EOB pt completed BUE towel exercises over all planes of motion for 1 x 10 to increase and restore maximum functional use. Pt transferred back into bed sit to supine with SBA. There she was left with call light in hand, tray table in place, and bed alarm activated for safety. Continue with rec D/C plan to SNF. MEET Baca
[2019-11-23 12:00] VITALS: BP 160/60
[2019-11-23 16:00] VITALS: BP 162/52
[2019-11-23 20:00] VITALS: BP 166/55
--- NOTE | 2019-11-23 20:00 | NUR ---
IV SITE LEAKING AT THIS TIME. HEP LOCK REMOVED AND NEW 22G INSERTED INTO LEFT ARM ON FIRST ATTEMPT WITHOUT DIFFICULTY AFTER BEING CLEANSED WITH ALCOHOL. GOOD BLOOD RETURN AND PATIENT TOLERATED WELL.
--- NOTE | 2019-11-23 21:51 | NUR ---
PATIENT MEDICATED WITH NORCO FOR COMPLAINTS OF BILATERAL KNEE PAIN. WILL CONTINUE TO MONITOR. CALL LIGHT IN REACH.
[2019-11-24] VITALS: BP 156/54
[2019-11-24 06:16] LABS: BASO % 0.4 % (0.0-1.0); EOS # 0.8 10*3/uL (0.0-0.4); EOS % 9.9 % (1.0-4.0); LYMPH # 1.6 10*3/uL (1.3-4.4); LYMPH % 20.7 % (27.0-41.0); MEAN CELL VOLUME 89.9 fl (81.0-99.0); MEAN CORPUSCULAR HGB 27.3 pg (27.0-31.0); MEAN CORPUSCULAR HGB CONC 30.4 g/dl (33.0-37.0); MEAN PLATELET VOLUME 9.5 fl (9.6-12.3); MONO # 0.9 10*3/uL (0.1-1.0); MONO % 12.4 % (3.0-9.0); NEUT # 4.3 10*3/uL (2.3-7.9); NEUT % 56.5 % (47.0-73.0); PLATELET COUNT AUTOMATED 273 10*3/uL (130-400); RED BLOOD COUNT 2.78 10*6/uL (4.10-5.10); RED CELL DISTRI WIDTH 14.4 % (0-14.5); WHITE BLOOD COUNT 7.6 10*3/uL (4.8-10.8)
[2019-11-24 06:39] LABS: CREATININE 1.13 mg/dL (0.55-1.02); POTASSIUM 3.8 mmol/L (3.5-5.1)
--- NOTE | 2019-11-24 07:45 | NUR ---
PHYSICAL THERAPY Patient seen this am 1;1 for therapy visit and was resting supine in bed following patient care upon therapist arrival. Patient identified by name / and reports increaed L LE pain 01/18. Patient also stated she has not had her morning pain pill and was joined by OT criminal legal assistant who was present for observation only this session. Patient transfers supine to sit EOB with SBA and needed therapist assist to Masood/Doff L LE CAM boot. Patient is still WBAT on L LE, completing sit to stand transfer, CGA, then ambulating 15'x 2 to bathroom and back, use of wh walker, CGA x 1. Patient demonstrated antalgic, step to gait pattern and returned to EOB sit with increased fatigue. Patient transfered back to supine in bed, MIN A and remained with call light, tray table, telephone / bed alarm for safety. Will continue per POC as tolerated, total treatment time 16 minutes. Jesse Falcon, RN CORRECTIONS
--- NOTE | 2019-11-24 07:57 | NUR ---
OT NOTE Pt was seen this A.M. 1:1 for 17 minute OT session. Upon arrival pt was supine in bed. Pt identified by name and and had complaints of 6/10 L ankle pain. Pt presented to therapy with continuous 3L-O2 via NC which she remained on throughout the entire session. Pt transferred supine to sit EOB with SBA. While sitting EOB pt donned L cam boot with modA. Sit to stand completed from bed level with CGA and use of w/w for UE support. Functional mobility was then completed to the bathroom with CGA and use of w/w. Throughout pt required min verbal prompts/education for walker safety due to being impulsive at times, poor safety awareness, and poor safety with turns. Pt then transferred on to the standard commode with CGA and off with Yogesh. Clothing management completed with CGA for safety and toilet hygiene completed with supervision while seated. Functional mobility was then completed back to the EOB where she transferred sit to supine with SBA. There she was left with call light in hand, tray table in place, and bed alarm activated for safety. Continue with rec D/C plan to SNF. JUMANA Baca/Johnny
[2019-11-24] MEDS ORDERED: CLEOCIN HCL300 MG PO (09:45)
[2019-11-24] MEDS ORDERED: Carafate1 GM PO (09:45)
[2019-11-24] MEDS ORDERED: LOSARTAN POTASS50 M1 PO (09:45)
--- NOTE | 2019-11-24 09:48 | NUR ---
NORCO GIVEN FOR C/O BILATERAL KNEE PAIN. RATES 8/10 ON PAIN SCALE. WILL MONITOR.
--- NOTE | 2019-11-24 09:52 | NUR ---
Nutritional Support Services Note: Appetite is good for meals, she is eating 100% of meals. Regular diet as ordered. No other nutrition intervention needed at this time. Will follow if needed. Elvia Harrell Rdn Ld
[2019-11-24] MEDS ORDERED: WHEELCHAIR DEVI (11:26)
--- NOTE | 2019-11-24 11:45 | NUR ---
PHYSICAL THERAPY CO-SIGN I approve of the Physical Therapy notes written above. CEASAR CARRASCO, PT, DPT
[2019-11-24 12:00] VITALS: BP 166/70
--- NOTE | 2019-11-24 12:48 | NUR ---
OCCUPATIONAL THERAPY CO-SIGN I approve of the Occupational Therapy notes written above. TAYLER EDWARDS, OTR/L
--- NOTE | 2019-11-24 12:57 | NUR ---
SCRIP SENT TO [facility] FOR WHEELCHAIR. THEY ARE OUT OF STANDARD WHEELCHAIRS AT THIS TIME BUT WILL DELIVER IT TO HER SOON THEY COME IN.
--- NOTE | 2019-11-24 13:01 | NUR ---
CALLED PT AND SPOKE WITH HER ABOUT WHEELCHAIR MAY NOT BE AVAILABLE TODAY AND IF SHE WOULD BE ABLE TO GET INTO HER HOUSE WITHOUT IT. SHE STATES SHE THINKS SHE WILL. EXPLAINED WHEELCHAIR WILL BE DELIVERED TO HER HOME WHEN THEY COME IN.
--- NOTE | 2019-11-24 14:08 | NUR ---
[facility] Discharge instructions reviewed with patient/family. Patient receptive and verbalizes understanding. Follow-up care arranged. Written instructions given to patient/family. ROMERO JARVIS
--- NOTE | 2019-11-24 15:17 | NUR ---
[facility] NOTIFIED OF PT BEING DISCHARGED.
== END 2019-11-24 14:08 | disposition home health service (06) | DRG 563 ==
LOC: ED 16:12 → 4E 19:17 → EDHOLD 19:17 → 4E 19:44
PROVIDERS: Emergency Medicine; Hospitalist; Internal Medicine; Student in an Organized Health Care Education/Training Program; ADMIT Family Medicine
PROC: 30233N1 Transfusion of Nonautologous Red Blood Cells into Peripheral Vein, Percutaneous Approach (ICD-10-PCS; principal; 2019-11-19)
DX: S93.402A Sprain of unspecified ligament of left ankle, initial encounter (principal); K92.2 Gastrointestinal hemorrhage, unspecified; I16.1 Hypertensive emergency; I50.32 Chronic diastolic (congestive) heart failure; L03.90 Cellulitis, unspecified; I13.0 Hypertensive heart and chronic kidney disease with heart failure and stage 1 through stage 4 chronic kidney disease, or unspecified chronic kidney disease; E27.40 Unspecified adrenocortical insufficiency; J96.11 Chronic respiratory failure with hypoxia; R55 Syncope and collapse; I48.91 Unspecified atrial fibrillation; K21.9 Gastro-esophageal reflux disease without esophagitis; J44.9 Chronic obstructive pulmonary disease, unspecified; N18.3 Chronic kidney disease, stage 3 (moderate); D50.9 Iron deficiency anemia, unspecified; I45.10 Unspecified right bundle-branch block; R73.9 Hyperglycemia, unspecified; E83.41 Hypermagnesemia; G47.33 Obstructive sleep apnea (adult) (pediatric); F41.9 Anxiety disorder, unspecified; F32.9 Major depressive disorder, single episode, unspecified; Z53.29 Procedure and treatment not carried out because of patient's decision for other reasons; R19.5 Other fecal abnormalities; F40.240 Claustrophobia; I35.0 Nonrheumatic aortic (valve) stenosis; I70.203 Unspecified atherosclerosis of native arteries of extremities, bilateral legs; Z79.01 Long term (current) use of anticoagulants; Z85.038 Personal history of other malignant neoplasm of large intestine; Z86.73 Personal history of transient ischemic attack (TIA), and cerebral infarction without residual deficits; Z95.2 Presence of prosthetic heart valve; W19.XXXA Unspecified fall, initial encounter; Y93.89 Activity, other specified; Y92.89 Other specified places as the place of occurrence of the external cause; Y99.8 Other external cause status; Z88.8 Allergy status to other drugs, medicaments and biological substances; Z88.2 Allergy status to sulfonamides; Z88.6 Allergy status to analgesic agent; Z88.1 Allergy status to other antibiotic agents; Z91.048 Other nonmedicinal substance allergy status; Z79.899 Other long term (current) drug therapy; Z90.710 Acquired absence of both cervix and uterus; Z90.49 Acquired absence of other specified parts of digestive tract; Z95.1 Presence of aortocoronary bypass graft; Z98.42 Cataract extraction status, left eye; Z98.41 Cataract extraction status, right eye; Z82.49 Family history of ischemic heart disease and other diseases of the circulatory system; Z80.0 Family history of malignant neoplasm of digestive organs

== ENCOUNTER 2019-11-30 10:54 | Inpatient (IN) | payer MEDICARE, OTHER ==
[~2019-11-30] VITALS: Ht 160 cm; Wt 103.9 kg
[2019-11-30] VITALS (14 sets, daily range): BP systolic 121–179; BP diastolic 43–68
[~2019-11-30 10:54] MED LIST changes: +CLEOCIN HCL300 MG PO; +Carafate1 GM PO; +LOSARTAN POTASS50 M1 PO; +SYNTHROID25 MCG PO; +WHEELCHAIR DEVI
[2019-11-30 11:44] LABS: BASO # 0.1 10*3/uL (0.0-0.1); BASO % 0.6 % (0.0-1.0); EOS # 0.2 10*3/uL (0.0-0.4); EOS % 1.8 % (1.0-4.0); LYMPH % 11.6 % (27.0-41.0); MEAN CELL VOLUME 90.2 fl (81.0-99.0); MEAN CORPUSCULAR HGB 27.4 pg (27.0-31.0); MEAN CORPUSCULAR HGB CONC 30.4 g/dl (33.0-37.0); MEAN PLATELET VOLUME 8.8 fl (9.6-12.3); MONO # 0.9 10*3/uL (0.1-1.0); MONO % 10.4 % (3.0-9.0); NEUT # 6.8 10*3/uL (2.3-7.9); PLATELET COUNT AUTOMATED 327 10*3/uL (130-400); RED BLOOD COUNT 2.66 10*6/uL (4.10-5.10); RED CELL DISTRI WIDTH 14.3 % (0-14.5)
[2019-11-30 11:58] LABS: ALBUMIN 2.6 gm/dl (3.1-4.5); CREATININE 1.29 mg/dL (0.55-1.02); POTASSIUM 3.9 mmol/L (3.5-5.1); TOTAL PROTEIN 6.7 gm/dL (6.4-8.2)
--- NOTE | 2019-11-30 12:55 | NUR ---
TALKING ON PHONE WITH DAUGHTER, NO DISTRESS.
--- NOTE | 2019-11-30 14:20 | NUR ---
Time: 1419 A 79 year old FEMALE admitted to 4E under services of FRANKO WELLS DO. Pt. arrived via bed from ER. Chief complaint: CELLULITIS. ELMER KELYL
[2019-11-30] MEDS ORDERED: VENTOLIN 02.5 MG/3 M INH (14:34)
[2019-11-30] MEDS ORDERED: CARVEDILOL25 MG PO (14:42)
[2019-11-30] MEDS ORDERED: DULER200 INH (15:03)
[2019-11-30] MEDS ORDERED: OMEPRAZOLE40 MG PO (15:04)
[2019-11-30 19:29] LABS: BASO % 0.4 % (0.0-1.0); EOS # 0.3 10*3/uL (0.0-0.4); EOS % 3.6 % (1.0-4.0); HEMATOCRIT 26.8 % (37.0-47.0); LYMPH # 1.4 10*3/uL (1.3-4.4); MEAN CELL VOLUME 89.9 fl (81.0-99.0); MEAN CORPUSCULAR HGB 27.5 pg (27.0-31.0); MEAN CORPUSCULAR HGB CONC 30.6 g/dl (33.0-37.0); MEAN PLATELET VOLUME 8.4 fl (9.6-12.3); MONO % 12.5 % (3.0-9.0); NEUT # 5.1 10*3/uL (2.3-7.9); PLATELET COUNT AUTOMATED 313 10*3/uL (130-400); RED BLOOD COUNT 2.98 10*6/uL (4.10-5.10); RED CELL DISTRI WIDTH 14.3 % (0-14.5); WHITE BLOOD COUNT 7.8 10*3/uL (4.8-10.8)
--- NOTE | 2019-11-30 19:30 | NUR ---
DR. ARAUJO NOTIFIED OF 2 UNITS OF PRBC'S ORDERED BUT ONLY 1 ORDER TO TRANSFUSE. DISCUSSED PT HAD 1 UN[address]IX TODAY. [address]. ARAUJO STATES TO NOT TRANSFUSE THE SECOND UNIT AT THIS TIME. TO ORDER A CBC.
--- NOTE | 2019-11-30 22:00 | NUR ---
ENTERED PT'S ROOM TO ADMINISTER HS MEDS. PT C/O SEVERE ITCHING. BLOTHCHY RED RAISED HIVES NOTED OVER ENTIRE BODY. IV VANC STOPPED AND HL FLUSHED. DR. ARAUJO NOTIFIED. T.O. RCVD FOR IV BENADRYL 50MG X1 NOW AND OK TO CONTINUE PO XANAX.
[2019-11-30 23:58] LABS: BASO % 0.3 % (0.0-1.0); EOS # 0.2 10*3/uL (0.0-0.4); HEMATOCRIT 25.3 % (37.0-47.0); LYMPH % 11.7 % (27.0-41.0); MEAN CELL VOLUME 88.8 fl (81.0-99.0); MEAN CORPUSCULAR HGB 27.7 pg (27.0-31.0); MEAN CORPUSCULAR HGB CONC 31.2 g/dl (33.0-37.0); MEAN PLATELET VOLUME 9.1 fl (9.6-12.3); MONO # 0.8 10*3/uL (0.1-1.0); MONO % 9.5 % (3.0-9.0); NEUT # 6.5 10*3/uL (2.3-7.9); NEUT % 75.8 % (47.0-73.0); PLATELET COUNT AUTOMATED 324 10*3/uL (130-400); RED BLOOD COUNT 2.85 10*6/uL (4.10-5.10); RED CELL DISTRI WIDTH 14.1 % (0-14.5); WHITE BLOOD COUNT 8.6 10*3/uL (4.8-10.8)
[2019-12-01] VITALS: BP 159/60
--- NOTE | 2019-12-01 | NUR ---
PT RESTING QUIETLY IN BED AT THIS TIME. NO FURTHER C/O ITCING, HIVES SUBSIDING. WILL CONTINUE TO MONITOR.
--- NOTE | 2019-12-01 04:27 | NUR ---
CATHY VARGAS [id number] Please refer to the physician's history and physical for past medical history, comorbid conditions, and allergies. Diagnosis: BILATERAL LOWER LEG CELLULITIS ANEMIA Mao Score: 14,MODERATE RISK WOUND DESCRIPTIONS: Wound Number: 1 Location of the wound: left lower extremity Thickness: Partial Size: 46.0cm x 56.0cm x 0.1cm Tunneling: none Undermining: none Sinus Tract: none Presence of Exudate: none Amount: None Color: Brown, red, yellow Odor: None Periwound Skin Appearance: Erythema Wound edges: closed Pain (associated with wound): tender to touch How does patient state this happened? pt stated this started about 7 days when she left here her legs started to swell back up and a photograph was sent to Dr. Mclean and he wanted her to be seen here Wound Number: 2 Location of the wound: right lower extremity Type of wound: abscess Thickness: Partial Size: 43.0cm x 51.0cm x 0.1cm right knee measuring 9.0cm x 10.0cm x <0.1cm Tunneling: none Undermining: none Sinus Tract: none Presence of Exudate: none Amount: None Color: Purple, dark red Odor: None Periwound Skin Appearance: Erythema Wound edges: approximated Pain (associated with wound): none at time of assessment How does patient state this happened? pt stated this started about 7 days when she left here her legs started to swell back up and a photograph was sent to Dr. Mclean and he wanted her to be seen here Surface the patient is resting on: Isoflex SKIN PREVENTION RECOMMENDATION: 1. Pressure redistribution support surface as appropriate 2. Elevate heels 3. Remove boots/TEDS every shift and reapply 4. Head of bed 30 degrees as tolerated 5. Assess nutrition and hydration 6. Manage moisture 7. Avoid the use of containment devices while in bed 8. Use absorptive products on surfaces limit layers of linens on bed 9. Turn and reposition every 1-2 hours in bed and every 1 hour in chair as tolerated 10. Weight shifts every 15 minutes while up in chair 11. Offloading with pillows or device to keep heels elevated off bed 12. Monitor skin at least every shift 13. Inspect under medical devices twice a day WOUND TREATMENT RECOMMENDATIONS: Dr. Giles is already on consult for area to right knee. Cleanse bilateral lower extremities with soap and water and apply aqauphor ointment bid. Heel raiser pro boots to bilateral feet while in bed. Patient states she will follow up with Dr. Mclean upon discharge and if she needs to follow up with Dr. Giles she will once she get her wheelchair.
--- NOTE | 2019-12-01 04:43 | NUR ---
NO HIVES NOTED ON PT OR ANY FURTHER C/O ITCHING.
[2019-12-01 06:13] LABS: BASO % 0.6 % (0.0-1.0); EOS # 0.3 10*3/uL (0.0-0.4); EOS % 3.7 % (1.0-4.0); HEMATOCRIT 25.9 % (37.0-47.0); LYMPH % 13.8 % (27.0-41.0); MEAN CORPUSCULAR HGB 27.5 pg (27.0-31.0); MEAN CORPUSCULAR HGB CONC 30.9 g/dl (33.0-37.0); MEAN PLATELET VOLUME 9.1 fl (9.6-12.3); MONO # 0.5 10*3/uL (0.1-1.0); MONO % 6.6 % (3.0-9.0); NEUT # 5.3 10*3/uL (2.3-7.9); NEUT % 74.7 % (47.0-73.0); PLATELET COUNT AUTOMATED 352 10*3/uL (130-400); RED BLOOD COUNT 2.91 10*6/uL (4.10-5.10); RED CELL DISTRI WIDTH 14.3 % (0-14.5); WHITE BLOOD COUNT 7.1 10*3/uL (4.8-10.8)
[2019-12-01 06:44] LABS: ACT PARTIAL THROMBO TIME 28.8 SECONDS (20.0-32.1)
[2019-12-01 06:45] LABS: ALBUMIN 2.3 gm/dl (3.1-4.5); CREATININE 1.38 mg/dL (0.55-1.02); FREE T4 1.62 ng/dl (0.76-1.46); POTASSIUM 3.9 mmol/L (3.5-5.1); TOTAL PROTEIN 6.4 gm/dL (6.4-8.2)
[2019-12-01 06:51] LABS: THYROID STIM HORMONE (HS) 1.34 uIU/ml (0.358-4.75)
[2019-12-01 08:00] VITALS: BP 154/50
--- NOTE | 2019-12-01 08:31 | NUR ---
Nursing screen received and chart reviewed. Patient was admitted for bilateral lower extremity cellulitis and anemia. Patient recently discharged on November 24, 2019 to home. If patient has a decline in ADLs, transfers, or functional mobility, please send OT orders. Thank you. Norma Frias OTR/L
--- NOTE | 2019-12-01 08:46 | NUR ---
PHYSICAL THERAPY Nursing screen recieved and chart reviewed. Recommend PT evaluation when medically stable to prevent decline in functional mobility. Thank you. Heydi Arora,PT,DPT.
--- NOTE | 2019-12-01 09:16 | NUR ---
Environmental Health Manager in to talk to patient. Patient states lives at HOME with ALONE WITH FAMILY HELP. There are FEW steps in the home. Physician: TIANNA [facility]acy: [facility] Home health services: [facility], Patient's level of ADLs: MINIMAL ASSIST Patient has working utilities: YES DME: WALKER, ROLLATOR, WHEELCHAIR Follow-up physician's appointment after d/c: WILL BE MADE BY HOSPITALIST NURSE DIRECTOR ON DISCHARGE Does patient want to access PORTAL?: NO Discharge plan PT LIVES AT HOME ALONE WITH FAMILY HELP, [facility], AND AIDS 3 DAYS A WEEK, 3 HOURS A DAY. TALKED WITH PT ABOUT SKILLED STAY FOR REHAB PRIOR TO RETURNING HOME DUE TO READMISSION BUT SHE REFUSES AND STATES SHE WILL RETURN HOME WITH WITH ABOVE SERVICES. STATES HER WHEELCHAIR ORDERED LAST ADMISSION IS BEING DELIVERED TOMORROW. WILL CONTINUE TO FOLLOW. WILL HAVE A RIDE HOME PER PT.. NEY SMITH
--- NOTE | 2019-12-01 10:30 | NUR ---
Occupational therapy orders received and chart reviewed. Per discussion with nurse, patient is on hold for therapy at this time due to heart rate and having an EKG ordered. Will follow up with patient for completion of an OT evaluation tomorrow. Thank you. Norma Frias, OTR/L
[2019-12-01 10:35] VITALS: BP 110/60
--- NOTE | 2019-12-01 10:39 | NUR ---
DR PRINCE MOORE NOTIFIED OF PT'S BRADYCARDIA IN THE 30'S. STAT EKG ORDERED. PT SYMPTOMATIC.
--- NOTE | 2019-12-01 10:45 | NUR ---
PT HR JAJA DOWN TO 35 TO 37 BPM ON TELEMETRY. WHEN PATIENT ASSESSED SHE WAS COMPLETELY ASYMPTOMATIC. UPON LOOKING AT MONITOR HR INCREASED TO 48 THEN 54. STAYED WITH PATIENT WHILE OSWALDO EASON ORDERRED EKG NOTIFIED DR. JIMENEZ TEAM. PATIENT REMAINED COMPLETELY ASYMPTOMATIC. HR INCREASED THEN DECREASED AGAIN TO 35 TO 40. BP OBTAINED WAS 110/60. EKG SENT TO DR. DIAZ TEAM . PHYSICIANS DCD BETA BLOCKERS. I&D SURGERY WAS CHANGED TO BEDSIDE OPPOSED TO O.R. PROCEDURE. PATIENTS HR RESUMED TO MID TO HIGH 60S. PROCEDURE COMPLETED BY DR. CHOWDHURY AND CONSULT TO CARDIOLOGY ORDERRED BY DR. DIAZ.
--- NOTE | 2019-12-01 11:08 | NUR ---
PHYSICAL THERAPY PT evaluation received. Hold PT services at this time due to patient awaiting for EKG. Will attempt PT evaluation again at a later date. Thank you. Heydi Arora,PT,DPT.
--- NOTE | 2019-12-01 12:08 | NUR ---
PHOTOGRAPHED WOUND PRIOR TO PROCEDURE, UNABLE TO TAKE POST PROCEDURE PHOTO PACKED AND WRAPPED TOO QUICKLY. DR. OLIVARES INSTRUCTED NOT TO UNWRAP FOR PHOTO.
--- NOTE | 2019-12-01 13:19 | NUR ---
DR. MARTINEZ SAID OK TO HOLD LOVENOX DOSE TODAY FOR BEDSIDE I&D PROCEDURE.
--- NOTE | 2019-12-01 14:50 | NUR ---
IV started left wrist with #22 protective cath after 1 attempts. Site prepped with Chloroprep. Sterile dressing applied. Patient tolerated procedure well. HARITHA DUVALL
[2019-12-01 16:00] VITALS: BP 171/50
[2019-12-01 20:00] VITALS: BP 139/40
[2019-12-02] VITALS: BP 123/41
--- NOTE | 2019-12-02 04:28 | NUR ---
CATHY VARGAS [id number] Please refer to the physician's history and physical for past medical history, comorbid conditions, and allergies. Diagnosis: BILATERAL LOWER LEG CELLULITIS ANEMIA Mao Score: 14,MODERATE RISK WOUND DESCRIPTIONS: Wound Number: 3 Location of the wound: Right knee proximal Type of wound: surgical Thickness: Partial Size: 0.3cm x 1.5cm x 1.7cm Tunneling: none Undermining: none Sinus Tract: none Presence of Exudate: Sanguineous Amount: Light Color: Red Odor: None Periwound Skin Appearance: Normal Wound edges: approximated Pain (associated with wound): none at time of assessment How does patient state this happened? pt stated had procedure yesterday Wound Number: 5 Location of the wound: right knee distal Type of wound: surgical Thickness: Partial Size: 0.1cm x 1.1cm x 1.2cm Tunneling: none Undermining: none Sinus Tract: none Presence of Exudate: Sanguineous Amount: Light Color: Red Odor: None Periwound Skin Appearance: Normal Wound edges: approximated Pain (associated with wound): none at time of assessment How does patient state this happened? pt stated had procedure yesterday Surface the patient is resting on: Isoflex SKIN PREVENTION RECOMMENDATION: 1. Pressure redistribution support surface as appropriate 2. Elevate heels 3. Remove boots/TEDS every shift and reapply 4. Head of bed 30 degrees as tolerated 5. Assess nutrition and hydration 6. Manage moisture 7. Avoid the use of containment devices while in bed 8. Use absorptive products on surfaces limit layers of linens on bed 9. Turn and reposition every 1-2 hours in bed and every 1 hour in chair as tolerated 10. Weight shifts every 15 minutes while up in chair 11. Offloading with pillows or device to keep heels elevated off bed 12. Monitor skin at least every shift 13. Inspect under medical devices twice a day WOUND TREATMENT RECOMMENDATIONS: Partial thickness guidelines: Cleanse right knee proximal and right knee distal with nss and lightly pack with maxorb rope and cover with optifoam gentle.
[2019-12-02 06:35] LABS: BASO # 0.1 10*3/uL (0.0-0.1); BASO % 0.6 % (0.0-1.0); EOS # 0.6 10*3/uL (0.0-0.4); EOS % 6.8 % (1.0-4.0); HEMATOCRIT 26.1 % (37.0-47.0); LYMPH # 1.2 10*3/uL (1.3-4.4); LYMPH % 14.6 % (27.0-41.0); MEAN CELL VOLUME 89.7 fl (81.0-99.0); MEAN CORPUSCULAR HGB 27.5 pg (27.0-31.0); MEAN CORPUSCULAR HGB CONC 30.7 g/dl (33.0-37.0); MEAN PLATELET VOLUME 9.3 fl (9.6-12.3); MONO # 1.1 10*3/uL (0.1-1.0); MONO % 12.6 % (3.0-9.0); NEUT # 5.4 10*3/uL (2.3-7.9); NEUT % 64.9 % (47.0-73.0); PLATELET COUNT AUTOMATED 355 10*3/uL (130-400); RED BLOOD COUNT 2.91 10*6/uL (4.10-5.10); RED CELL DISTRI WIDTH 14.3 % (0-14.5); WHITE BLOOD COUNT 8.3 10*3/uL (4.8-10.8)
[2019-12-02 06:48] LABS: CREATININE 1.28 mg/dL (0.55-1.02); POTASSIUM 3.6 mmol/L (3.5-5.1)
--- NOTE | 2019-12-02 07:14 | NUR ---
Spoke with Dr. Giles regarding wound care recommendations. He stated that the patient will have to follow up in the wound care center since his office is closed at this time. Will speak to patient regarding which day works best for her for next week.
[2019-12-02 08:00] VITALS: BP 160/72
--- NOTE | 2019-12-02 09:00 | NUR ---
RESTING IN BED. OXYGEN IN USE. NO C/O AT THIS TIME. PT EATING BREAKFAST. REQUESTING GAVISCON FOR AFTER SHE EATS. SEE EMAR. TOLERATED ROUTINE MED WITH NO PROBLEM. CALL LIGHT IN REACH. SEE SHIFT ASSESSMENT.
--- NOTE | 2019-12-02 09:11 | NUR ---
APPOINTMENT MADE FOR PATIENT IN WOUND CARE CENTER FOR 12/09/19 AT 1500 WITH ISH DOUGLAS NP. PATIENT WAS GIVEN APPOINTMENT CARD WITH WOUND CARE CENTER PHONE NUMBER AND INSTRUCTED TO LEAVE VOICEMAIL IF THERE IS NO ANSWER.
--- NOTE | 2019-12-02 10:30 | NUR ---
PHYSICAL THERAPY Physical Therapy evaluation completed on 4E with full evaluation to follow. Moderate complexity PT evaluation per chart review and evaluation, [id number]. Recommend physical therapy per plan of care and SNF upon discharge. Thank you for this referral. Heydi Arora,PT,DPT
--- NOTE | 2019-12-02 10:30 | NUR ---
Occupational Therapy evaluation completed on four with full evaluation to follow. Recommend occupational therapy per plan of care and SNF upon discharge. If refused, home with SN, OT, and PT with 03/03 supervision assist. Thank you for this referral. Norma Frias OTR/L
[2019-12-02 12:00] VITALS: BP 150/55
[2019-12-02 16:00] VITALS: BP 155/47
[2019-12-02 20:00] VITALS: BP 153/63
--- NOTE | 2019-12-02 22:00 | NUR ---
Hep Lock discontinued. Site asymptomatic. Pressure applied. Sterile dressing applied. IV started right forearm with #22 protective cath after 0 attempts. Site prepped with Chloroprep. Sterile dressing applied. Patient tolerated procedure well. DEVEN SEGOVIA
[2019-12-03] VITALS: BP 154/59
--- NOTE | 2019-12-03 00:53 | NUR ---
PATIENT RESTING; EASY RESPS ON 3L NC. ALL SAFETY MEASURES IN PLACE. WILL CONT TO [facility].
[2019-12-03 06:03] LABS: BASO # 0.1 10*3/uL (0.0-0.1); BASO % 0.5 % (0.0-1.0); EOS # 0.6 10*3/uL (0.0-0.4); HEMATOCRIT 26.7 % (37.0-47.0); LYMPH # 1.2 10*3/uL (1.3-4.4); LYMPH % 11.4 % (27.0-41.0); MEAN CELL VOLUME 88.7 fl (81.0-99.0); MEAN CORPUSCULAR HGB 27.6 pg (27.0-31.0); MEAN CORPUSCULAR HGB CONC 31.1 g/dl (33.0-37.0); MEAN PLATELET VOLUME 9.3 fl (9.6-12.3); MONO # 1.1 10*3/uL (0.1-1.0); NEUT # 7.6 10*3/uL (2.3-7.9); NEUT % 71.7 % (47.0-73.0); PLATELET COUNT AUTOMATED 387 10*3/uL (130-400); RED BLOOD COUNT 3.01 10*6/uL (4.10-5.10); RED CELL DISTRI WIDTH 14.3 % (0-14.5); WHITE BLOOD COUNT 10.6 10*3/uL (4.8-10.8)
[2019-12-03 06:04] LABS: CREATININE 1.13 mg/dL (0.55-1.02); POTASSIUM 3.4 mmol/L (3.5-5.1)
--- NOTE | 2019-12-03 06:38 | NUR ---
DRESSING CHANGE TO RT KNEE COMPLETED PER ORDERS. PT TOLERATED WELL.
[2019-12-03 08:00] VITALS: BP 140/50
--- NOTE | 2019-12-03 09:16 | NUR ---
Basia from surgery dept here to do picc at bedside.
--- NOTE | 2019-12-03 10:14 | NUR ---
TALKED WITH PT ABOUT GOING TO A SNF, SHE STATES SHE REALLY WANTS TO GO HOME. EXPLAINED SHE MAY NEED IV ANTIBIOTICS. SHE ASKED IF NURSE WILL DO THEM. TOLD HER THAT THEY WOULD NOT BE COMING EVERY DAY FOR THEM AND WOULD TEACH HER OR HER FAMILY HOW TO DO THEM. STATES I DON'T KNOW ANYTHING ABOUT THAT. TALKED WITH HER ABOUT REHAB SUITES AND THAT THEY HAD PRIVATE ROOMS IF AVAILABLE. PT STATES SHE WAS PREVIOUSLY AT [facility] IN 2018 WHEN SHE BROKE HER ARM AND THEY MADE HER STAY 2 MONTHS AND SHE DOSEN'T WANT THAT TO HAPPEN AGAIN. PT STATES SHE WILL THINK ABOUT GOING AND FOR ME TO CALL HER BACK LATER AND SHE WILL HAVE DECISION.
--- NOTE | 2019-12-03 10:15 | NUR ---
OT NOTE Pt was seen this A.M. 1:1 for 20 minute OT session. Upon arrival pt was supine in bed. Pt identified by name and and had no complaints at this time. Pt presented to therapy with continuous 3L-O2 via NC which she remained on throughout the entire session. Pt transferred supine to sit EOB with SBA. While sitting EOB requested for pt to coleman L cam boot for increased I at home. Pt was able to coleman with Yogesh requiring assist for lower straps. Pt completed multiple sit to stand transfers from bed level with SBA and use of w/w for UE support. Challenged pt's static standing tolerance needed for increased I in self care tasks and functional transfers, pt was able to tolerate aprox 2-3 minutes at a time before sitting due to fatigue. Pt then completed standing pivot from the EOB to the bedside commode with CGA and verbal prompts for walker safety with turning. Pt transferred on/off bedside commode with SBA for safety followed by standing pivot back to the EOB with CGA. Pt transferred back into bed sit to supine with SBA. There she was left with call light in hand, tray table in place, and bed alarm activated for safety. Continue with rec D/C plan to SNF. JUMANA Baca/Johnny
--- NOTE | 2019-12-03 10:15 | NUR ---
PHYSICAL THERAPY Patient seen this am 1:1 for therapy visit and was resting supine in bed upon therapist arrival. Patient identified by name / and reports no new c/o's, with continuos O2-3L via NC. OT marketing assistant manager was also present for observation only this session as patient transfers supine to sit EOB with SBA x 1. Patient needed a few minutes static EOB sit to collect herself while Donning L LE CAM boot. Patient required 50% therapist assist to attach several velcro straps then completed several sit to stand transfers, SBA, with use of wh walker standing support from slightly elevated bed height. Patient instructed on improved SPT technique secondary to patient request and was able to complete SPT to BSC, wh walker, CGA, demonstating increased confidence and Fair safety awareness. Patient returned to supine in bed and remained with call light, tray table, telephone and bed alarm for safety. CAM boot was also removed with R LE elevated on pillow for comfort. Will continue per POC as tolerated, total treatment time 17 minutes. Jesse Falcon, FOOD TRAY ASSEMBLER
[2019-12-03] MEDS ORDERED: TEFLARO600 MG IV (10:19)
--- NOTE | 2019-12-03 10:34 | NUR ---
BET TAKER faxed new referral to [facility]. Waiting on acceptance.
--- NOTE | 2019-12-03 11:03 | NUR ---
Reviewed CXR result past picc line placement with Basia Mejia who placed picc. States she already cut the picc line and it cant be advanced. States it should be ok to use and to notify physican. Spoke with Dr. Beltrán and reviewed cxr and response by Basia who placed picc. States Ok to use.
--- NOTE | 2019-12-03 11:43 | NUR ---
OCCUPATIONAL THERAPY CO-SIGN I approve of the Occupational Therapy notes written above. TAYLER EDWARDS, OTR/L
[2019-12-03 12:00] VITALS: BP 146/60
--- NOTE | 2019-12-03 12:03 | NUR ---
TALKED WITH PT AGAIN ABOUT DECISION OF GOING HOME OR SNF. PT STATES DR MEJÍA WAS IN AND TOLD HER SHE MAY HAVE A COST TO MED, BUT IF NOT SHE COULD GO HOME. FAXED REFERRAL TO [facility] TO RUN COST. WILL CONTINUE TO FOLLOW.
--- NOTE | 2019-12-03 12:23 | NUR ---
Patient has been accepted at [facility]. Per [facility] IVAB will not be an issue.
--- NOTE | 2019-12-03 13:32 | NUR ---
RECEIVED A CALL FROM FLORENCIA AT [employer] AND SHE STATES PT HAS NO COPAY FOR ANTIBIOTICS. TALKED WITH PT AGAIN ABOUT SNF STAY AND TOLD HER SHE COULD GO TO REHAB SUITES. PT STATES SHE WOULD RATHER GO HOME, BUT DID ASK IF SHE WAS UNABLE TO DO IT AT HOME IF SHE COULD GO TO REHAB SUITES THEN. PER GERDA BUSINESS DEVELOPMENT AGENT IF PT IS UNABLE TO CARE FOR SELF AT HOME SHE CAN CONTACT [facility] WITHIN 30 DAYS TO BE ADMITTED FOR REHAB.
--- NOTE | 2019-12-03 14:45 | NUR ---
ASSOCIATE DIRECTOR FINANCE confirmed with [facility] when the patient is discharged they will transport her home.
--- NOTE | 2019-12-03 14:50 | NUR ---
Granddaughter called in and was updated on pt. They had appropiate password. Notified that we were waiting on cost of iv antibiotics. Pt states that if cost is too high then she will go to skilled facility. Notified that case management was currently working on setting this up. Awaiting their feedback.
[2019-12-03 16:00] VITALS: BP 150/54
--- NOTE | 2019-12-03 18:17 | NUR ---
Medicated with gaviscon per prn order and pt request for it after eating.
[2019-12-03 20:00] VITALS: BP 144/52
--- NOTE | 2019-12-03 21:30 | NUR ---
PATIENT MEDICATED WITH NORCO PER PRN ORDER FOR C/O LEG PAIN . RATED PAIN A 7-8/10 WITH 10 BEING THE WORST. SEE EMAR. REINFORCED USE OF CALL LIGHT
[2019-12-04] VITALS: BP 144/62
--- NOTE | 2019-12-04 | NUR ---
PATIENT RESTING QUIETLY. NO FURTHER C/O VOICED.
--- NOTE | 2019-12-04 02:47 | NUR ---
24 HR chart check completed.
[2019-12-04 06:15] LABS: BASO # 0.1 10*3/uL (0.0-0.1); BASO % 0.7 % (0.0-1.0); EOS # 0.6 10*3/uL (0.0-0.4); EOS % 7.6 % (1.0-4.0); HEMATOCRIT 25.4 % (37.0-47.0); LYMPH # 1.3 10*3/uL (1.3-4.4); LYMPH % 17.8 % (27.0-41.0); MEAN CELL VOLUME 87.9 fl (81.0-99.0); MEAN CORPUSCULAR HGB CONC 30.7 g/dl (33.0-37.0); MEAN PLATELET VOLUME 9.2 fl (9.6-12.3); MONO # 0.9 10*3/uL (0.1-1.0); MONO % 11.8 % (3.0-9.0); NEUT # 4.6 10*3/uL (2.3-7.9); NEUT % 61.7 % (47.0-73.0); PLATELET COUNT AUTOMATED 350 10*3/uL (130-400); RED BLOOD COUNT 2.89 10*6/uL (4.10-5.10); RED CELL DISTRI WIDTH 14.3 % (0-14.5); WHITE BLOOD COUNT 7.5 10*3/uL (4.8-10.8)
[2019-12-04 06:23] LABS: CREATININE 1.28 mg/dL (0.55-1.02)
--- NOTE | 2019-12-04 07:15 | NUR ---
Report received from Elvia Cruz RN. States [facility] consults were notified.
--- NOTE | 2019-12-04 07:30 | NUR ---
Spoke with [facility]. States pt is schedule to have first dose of antibiotic at home today to be trained how to administer. Asking if pt has been dc yet. I explained she has not yet been dc. Stated he will call hospitalist regarding this.
[2019-12-04 08:00] VITALS: BP 152/64
--- NOTE | 2019-12-04 08:52 | NUR ---
Dr. Gibbs called in plan to dc pt today and pt will receive antibiotics at home with home health. States not to give am dose of antibiotic this will be given at home today after discharge.
[2019-12-04] MEDS ORDERED: ALDACTONE25 MG PO (09:35)
--- NOTE | 2019-12-04 10:15 | NUR ---
DRYWALL INSTALLER NOTIFIED [employer] OF THE PATIENTS DISCHARGE. DRYWALL INSTALLER CONTACTED [facility] AND NOTIFIED THEM OF PATIENTS DISCHARGE.
--- NOTE | 2019-12-04 10:29 | NUR ---
Discharge instructions reviewed with pt. Pt refused wound care photos at discharge. Pt verbalized understanding. Aware that home health will be at home at noon to teach self administration of iv antibiotics.
--- NOTE | 2019-12-04 11:03 | NUR ---
[facility] here to moss picker pt for dc to home. Picc line in place to rt arm. DC to home in care of [facility].
--- NOTE | 2019-12-06 08:09 | NUR ---
PHYSICAL THERAPY CO-SIGN I approve of the Physical Therapy notes written above. Steffanie Abreu PT
--- NOTE | 2019-12-06 12:23 | NUR ---
EDGAR RECEIVED CALL FROM [facility]. HE STATED HE NEEDED TO KNOW IF THE PATIENT WOULD BE ABLE TO BE ADMITTED TO . EDGAR REACHED OUT TO [facility]. SHE STATED YES THE PATIENT WOULD BE ABLE TO ADMIT TO AND ASKED IF THE DISCHARGE SUMMARY BE FAXED TO HER. EDGAR REACHED BACK OUT TO [facility] AND EXPLAINED THIS TO HIM, HE TOOK DOWN [facility] INFORMATION. HUMAN PERFORMANCE PROFESSOR TO FAXE DISCHARGE TO [facility].
== END 2019-12-04 11:03 | disposition home or self-care (01) | DRG 940 ==
LOC: ED 10:54 → 4E 13:42 → EDHOLD 13:42 → 4E 13:55
PROVIDERS: Emergency Medicine; Family Medicine; Hospitalist; Internal Medicine; Student in an Organized Health Care Education/Training Program; ADMIT Internal Medicine
PROC: 30233N1 Transfusion of Nonautologous Red Blood Cells into Peripheral Vein, Percutaneous Approach (ICD-10-PCS; principal; 2019-11-30)
PROC: 0J9N0ZZ Drainage of Right Lower Leg Subcutaneous Tissue and Fascia, Open Approach (ICD-10-PCS; 2019-12-01)
PROC: 05H333Z Insertion of Infusion Device into Right Innominate Vein, Percutaneous Approach (ICD-10-PCS; 2019-12-03)
DX: Z79.899 Other long term (current) drug therapy (principal); L03.115 Cellulitis of right lower limb; E44.0 Moderate protein-calorie malnutrition; I50.30 Unspecified diastolic (congestive) heart failure; E27.40 Unspecified adrenocortical insufficiency; I13.0 Hypertensive heart and chronic kidney disease with heart failure and stage 1 through stage 4 chronic kidney disease, or unspecified chronic kidney disease; I67.82 Cerebral ischemia; J96.11 Chronic respiratory failure with hypoxia; C18.9 Malignant neoplasm of colon, unspecified; I48.21 Permanent atrial fibrillation; Z68.42 Body mass index [BMI] 45.0-49.9, adult; L02.415 Cutaneous abscess of right lower limb; L03.116 Cellulitis of left lower limb; M25.461 Effusion, right knee; D50.0 Iron deficiency anemia secondary to blood loss (chronic); G47.33 Obstructive sleep apnea (adult) (pediatric); E66.01 Morbid (severe) obesity due to excess calories; N18.3 Chronic kidney disease, stage 3 (moderate); R73.9 Hyperglycemia, unspecified; J44.9 Chronic obstructive pulmonary disease, unspecified; K21.9 Gastro-esophageal reflux disease without esophagitis; F32.9 Major depressive disorder, single episode, unspecified; G25.81 Restless legs syndrome; F41.0 Panic disorder [episodic paroxysmal anxiety]; M19.90 Unspecified osteoarthritis, unspecified site; I45.10 Unspecified right bundle-branch block; Z99.81 Dependence on supplemental oxygen; K57.90 Diverticulosis of intestine, part unspecified, without perforation or abscess without bleeding; S93.402D Sprain of unspecified ligament of left ankle, subsequent encounter; X58.XXXD Exposure to other specified factors, subsequent encounter; T36.8X5A Adverse effect of other systemic antibiotics, initial encounter; Y92.238 Other place in hospital as the place of occurrence of the external cause; Z95.2 Presence of prosthetic heart valve; Z95.1 Presence of aortocoronary bypass graft; Z95.5 Presence of coronary angioplasty implant and graft; Z88.8 Allergy status to other drugs, medicaments and biological substances; Z88.1 Allergy status to other antibiotic agents; Z88.6 Allergy status to analgesic agent; Z88.2 Allergy status to sulfonamides; Z90.710 Acquired absence of both cervix and uterus; Z90.49 Acquired absence of other specified parts of digestive tract; Z98.42 Cataract extraction status, left eye; Z98.41 Cataract extraction status, right eye; Z82.49 Family history of ischemic heart disease and other diseases of the circulatory system; Z80.0 Family history of malignant neoplasm of digestive organs; Z86.73 Personal history of transient ischemic attack (TIA), and cerebral infarction without residual deficits

== ENCOUNTER 2020-02-28 22:39 | Inpatient (IN) | payer MEDICARE, OTHER ==
[~2020-02-28] VITALS: Ht 157.5 cm; Wt 105.4 kg
[~2020-02-28 22:39] MED LIST changes: +ALDACTONE25 MG PO; +CARVEDILOL25 MG PO; +OMEPRAZOLE40 MG PO; +TEFLARO600 MG IV
[2020-02-28 23:00] VITALS: BP 142/96
[2020-02-28 23:20] LABS: BASO # 0.1 10*3/uL (0.0-0.1); BASO % 0.5 % (0.0-1.0); EOS # 0.4 10*3/uL (0.0-0.4); EOS % 4.4 % (1.0-4.0); HEMATOCRIT 26.7 % (37.0-47.0); LYMPH # 1.8 10*3/uL (1.3-4.4); LYMPH % 19.8 % (27.0-41.0); MEAN CELL VOLUME 88.7 fl (81.0-99.0); MEAN CORPUSCULAR HGB 26.9 pg (27.0-31.0); MEAN CORPUSCULAR HGB CONC 30.3 g/dl (33.0-37.0); MEAN PLATELET VOLUME 8.8 fl (9.6-12.3); MONO # 0.9 10*3/uL (0.1-1.0); MONO % 9.3 % (3.0-9.0); NEUT % 65.7 % (47.0-73.0); PLATELET COUNT AUTOMATED 286 10*3/uL (130-400); RED BLOOD COUNT 3.01 10*6/uL (4.10-5.10); RED CELL DISTRI WIDTH 15.4 % (0-14.5); WHITE BLOOD COUNT 9.1 10*3/uL (4.8-10.8)
[2020-02-28 23:30] LABS: INTERNATIONAL NORM RATIO 0.9 (2.0-3.5)
[2020-02-28 23:36] VITALS: BP 144/97
[2020-02-28 23:38] LABS: CREATININE 1.35 mg/dL (0.55-1.02); POTASSIUM 4.5 mmol/L (3.5-5.1); TOTAL PROTEIN 7.3 gm/dL (6.4-8.2)
[2020-02-28 23:39] LABS: TROPONIN I 0.023 ng/ml (<0.045)
[2020-02-29] VITALS (10 sets, daily range): BP systolic 140–198; BP diastolic 44–85
[2020-02-29] MEDS ORDERED: XANAX0.5 MG PO (01:58)
[2020-02-29] MEDS ORDERED: NORCO 5-325 TA1 EACH PO (01:59)
[2020-02-29] MEDS ORDERED: CYCLOBENZAPRINE10 MG PO (02:02)
[2020-02-29] MEDS ORDERED: PROVENTIL HFA6.7 GM INH (02:04)
[2020-02-29 05:58] LABS: BASO # 0.1 10*3/uL (0.0-0.1); BASO % 0.6 % (0.0-1.0); EOS # 0.4 10*3/uL (0.0-0.4); EOS % 4.3 % (1.0-4.0); HEMATOCRIT 25.5 % (37.0-47.0); LYMPH # 1.7 10*3/uL (1.3-4.4); LYMPH % 20.2 % (27.0-41.0); MEAN CELL VOLUME 88.9 fl (81.0-99.0); MEAN CORPUSCULAR HGB 26.5 pg (27.0-31.0); MEAN CORPUSCULAR HGB CONC 29.8 g/dl (33.0-37.0); MEAN PLATELET VOLUME 9.4 fl (9.6-12.3); MONO # 0.8 10*3/uL (0.1-1.0); MONO % 9.8 % (3.0-9.0); NEUT # 5.4 10*3/uL (2.3-7.9); NEUT % 64.6 % (47.0-73.0); PLATELET COUNT AUTOMATED 305 10*3/uL (130-400); RED BLOOD COUNT 2.87 10*6/uL (4.10-5.10); RED CELL DISTRI WIDTH 15.4 % (0-14.5); WHITE BLOOD COUNT 8.4 10*3/uL (4.8-10.8)
[2020-02-29 06:03] LABS: ALBUMIN 2.8 gm/dl (3.1-4.5); CREATININE 1.23 mg/dL (0.55-1.02); POTASSIUM 4.8 mmol/L (3.5-5.1); TOTAL PROTEIN 6.9 gm/dL (6.4-8.2)
[2020-02-29 06:09] LABS: THYROID STIM HORMONE (HS) 4.69 uIU/ml (0.358-4.75)
[2020-02-29] MEDS ORDERED: CORTEF5 M1 PO (10:14)
[2020-03-01] VITALS (9 sets, daily range): BP systolic 149–177; BP diastolic 51–72
[2020-03-01 06:33] LABS: BASO # 0.1 10*3/uL (0.0-0.1); BASO % 0.7 % (0.0-1.0); EOS # 0.3 10*3/uL (0.0-0.4); EOS % 3.9 % (1.0-4.0); HEMATOCRIT 26.3 % (37.0-47.0); LYMPH # 1.8 10*3/uL (1.3-4.4); MEAN CELL VOLUME 90.1 fl (81.0-99.0); MEAN CORPUSCULAR HGB 27.1 pg (27.0-31.0); MEAN PLATELET VOLUME 9.4 fl (9.6-12.3); MONO # 0.7 10*3/uL (0.1-1.0); MONO % 9.1 % (3.0-9.0); NEUT # 4.6 10*3/uL (2.3-7.9); PLATELET COUNT AUTOMATED 300 10*3/uL (130-400); RED BLOOD COUNT 2.92 10*6/uL (4.10-5.10); RED CELL DISTRI WIDTH 15.5 % (0-14.5); WHITE BLOOD COUNT 7.5 10*3/uL (4.8-10.8)
[2020-03-01 06:49] LABS: CREATININE 1.19 mg/dL (0.55-1.02); POTASSIUM 4.3 mmol/L (3.5-5.1); TOTAL PROTEIN 7.3 gm/dL (6.4-8.2)
[2020-03-02] VITALS: BP 158/59
[2020-03-02 06:12] LABS: CREATININE 1.11 mg/dL (0.55-1.02); POTASSIUM 4.5 mmol/L (3.5-5.1)
[2020-03-02 06:26] LABS: BASO % 0.4 % (0.0-1.0); EOS # 0.3 10*3/uL (0.0-0.4); EOS % 4.5 % (1.0-4.0); HEMATOCRIT 25.7 % (37.0-47.0); LYMPH # 1.7 10*3/uL (1.3-4.4); MEAN CORPUSCULAR HGB 26.7 pg (27.0-31.0); MEAN CORPUSCULAR HGB CONC 30.4 g/dl (33.0-37.0); MEAN PLATELET VOLUME 9.2 fl (9.6-12.3); MONO # 0.9 10*3/uL (0.1-1.0); MONO % 11.9 % (3.0-9.0); NEUT # 4.5 10*3/uL (2.3-7.9); NEUT % 59.9 % (47.0-73.0); PLATELET COUNT AUTOMATED 293 10*3/uL (130-400); RED BLOOD COUNT 2.92 10*6/uL (4.10-5.10); RED CELL DISTRI WIDTH 15.1 % (0-14.5); WHITE BLOOD COUNT 7.6 10*3/uL (4.8-10.8)
[2020-03-02 08:00] VITALS: BP 138/68
[2020-03-02] MEDS ORDERED: AMOXICILLIN500 M3 PO (09:43)
== END 2020-03-02 12:05 | disposition home health service (06) | DRG 242 ==
LOC: ED 22:39 → EDHOLD 02-29 00:48 → ICCU 02-29 00:48 → 4E 02-29 00:48 → ICCU 02-29 01:11 → 4E 03-01 11:00
PROVIDERS: Emergency Medicine; Family Medicine; Internal Medicine; Student in an Organized Health Care Education/Training Program; ADMIT Internal Medicine
PROC: 02H63JZ Insertion of Pacemaker Lead into Right Atrium, Percutaneous Approach (ICD-10-PCS; principal; 2020-03-01)
PROC: 02HK3JZ Insertion of Pacemaker Lead into Right Ventricle, Percutaneous Approach (ICD-10-PCS; principal; 2020-03-01)
PROC: 0JH606Z Insertion of Pacemaker, Dual Chamber into Chest Subcutaneous Tissue and Fascia, Open Approach (ICD-10-PCS; principal; 2020-03-01)
DX: I44.2 Atrioventricular block, complete (principal); N17.0 Acute kidney failure with tubular necrosis; E43 Unspecified severe protein-calorie malnutrition; I13.0 Hypertensive heart and chronic kidney disease with heart failure and stage 1 through stage 4 chronic kidney disease, or unspecified chronic kidney disease; I50.32 Chronic diastolic (congestive) heart failure; J96.11 Chronic respiratory failure with hypoxia; E27.40 Unspecified adrenocortical insufficiency; Z68.42 Body mass index [BMI] 45.0-49.9, adult; N18.3 Chronic kidney disease, stage 3 (moderate); D50.9 Iron deficiency anemia, unspecified; K21.9 Gastro-esophageal reflux disease without esophagitis; J44.9 Chronic obstructive pulmonary disease, unspecified; I45.10 Unspecified right bundle-branch block; E66.01 Morbid (severe) obesity due to excess calories; M19.90 Unspecified osteoarthritis, unspecified site; G25.81 Restless legs syndrome; F41.9 Anxiety disorder, unspecified; F32.9 Major depressive disorder, single episode, unspecified; I49.5 Sick sinus syndrome; I48.0 Paroxysmal atrial fibrillation; E83.41 Hypermagnesemia; R79.89 Other specified abnormal findings of blood chemistry; K57.90 Diverticulosis of intestine, part unspecified, without perforation or abscess without bleeding; G47.33 Obstructive sleep apnea (adult) (pediatric); Z95.2 Presence of prosthetic heart valve; Z99.81 Dependence on supplemental oxygen; Z90.710 Acquired absence of both cervix and uterus; Z90.49 Acquired absence of other specified parts of digestive tract; Z98.49 Cataract extraction status, unspecified eye; Z82.49 Family history of ischemic heart disease and other diseases of the circulatory system; Z80.0 Family history of malignant neoplasm of digestive organs; Z79.899 Other long term (current) drug therapy; Z86.73 Personal history of transient ischemic attack (TIA), and cerebral infarction without residual deficits; Z85.038 Personal history of other malignant neoplasm of large intestine

== ENCOUNTER 2020-07-10 15:04 | Emergency (ER) | payer MEDICARE, OTHER ==
[~2020-07-10 15:04] MED LIST changes: +AMOXICILLIN500 M3 PO; +CORTEF5 M1 PO; +NORCO 5-325 TA1 EACH PO; +PROVENTIL HFA6.7 GM INH
[2020-07-10 16:40] LABS: BASO % 0.3 % (0.0-1.0); EOS % 0.3 % (1.0-4.0); HEMATOCRIT 26.1 % (37.0-47.0); LYMPH # 0.9 10*3/uL (1.3-4.4); LYMPH % 26.9 % (27.0-41.0); MEAN CELL VOLUME 87.9 fl (81.0-99.0); MEAN CORPUSCULAR HGB 26.9 pg (27.0-31.0); MEAN CORPUSCULAR HGB CONC 30.7 g/dl (33.0-37.0); MEAN PLATELET VOLUME 9.7 fl (9.6-12.3); MONO # 0.6 10*3/uL (0.1-1.0); MONO % 16.8 % (3.0-9.0); NEUT # 1.9 10*3/uL (2.3-7.9); NEUT % 55.4 % (47.0-73.0); PLATELET COUNT AUTOMATED 169 10*3/uL (130-400); RED BLOOD COUNT 2.97 10*6/uL (4.10-5.10); RED CELL DISTRI WIDTH 14.1 % (0-14.5); WHITE BLOOD COUNT 3.5 10*3/uL (4.8-10.8)
[2020-07-10 17:16] LABS: ALBUMIN 2.7 gm/dl (3.1-4.5); CREATININE 1.31 mg/dL (0.55-1.02); TOTAL PROTEIN 6.4 gm/dL (6.4-8.2); TROPONIN I 0.033 ng/ml (<0.045)
[2020-07-10 17:37] VITALS: BP 154/86
[2020-07-10] MEDS ORDERED: PREDNISONE50 MG PO (17:45)
[2020-07-10 18:27] LABS: BILIRUBIN Negative (Negative); BLOOD Negative (Negative); CLARITY Clear (Clear); COLOR Yellow (Yellow); GLUCOSE Negative (Negative); KETONE Trace (Negative); LEUKO ESTERASE 2+ (Negative); NITRITE Negative (Negative); UROBILINOGEN 0.2 E.U./dl (0.0-1.0)
[2020-07-10 18:38] LABS: BACTERIA TRACE
[2020-07-13 13:09] LABS: ORGANISM ID Final report (.)
== END 2020-07-10 19:20 | disposition home or self-care (01) ==
LOC: ED 15:04
PROVIDERS: Physician Assistant
DX: U07.1 COVID-19 (principal); J44.1 Chronic obstructive pulmonary disease with (acute) exacerbation; F41.9 Anxiety disorder, unspecified; I11.0 Hypertensive heart disease with heart failure; I50.9 Heart failure, unspecified; M19.90 Unspecified osteoarthritis, unspecified site; F32.9 Major depressive disorder, single episode, unspecified; K21.9 Gastro-esophageal reflux disease without esophagitis; I48.91 Unspecified atrial fibrillation; Z20.828 Contact with and (suspected) exposure to other viral communicable diseases; Z91.041 Radiographic dye allergy status; Z88.8 Allergy status to other drugs, medicaments and biological substances; Z88.2 Allergy status to sulfonamides; Z91.048 Other nonmedicinal substance allergy status; Z88.1 Allergy status to other antibiotic agents; Z79.2 Long term (current) use of antibiotics; Z79.899 Other long term (current) drug therapy; Z95.0 Presence of cardiac pacemaker; Z90.711 Acquired absence of uterus with remaining cervical stump; Z90.49 Acquired absence of other specified parts of digestive tract; Z98.61 Coronary angioplasty status

== ENCOUNTER 2020-07-12 14:38 | Inpatient (IN) | payer MEDICARE, OTHER ==
[~2020-07-12] VITALS: Ht 160 cm; Wt 113.6 kg
[~2020-07-12 14:38] MED LIST changes: +PREDNISONE50 MG PO
[2020-07-12 14:39] VITALS: BP 180/61
--- NOTE | 2020-07-12 14:55 | NUR ---
REPORT TO HARITHA CHACON
[2020-07-12 15:44] LABS: HEMATOCRIT 28.1 % (37.0-47.0); LYMPH # 0.5 10*3/uL (1.3-4.4); LYMPH % 6.8 % (27.0-41.0); MEAN CELL VOLUME 85.2 fl (81.0-99.0); MEAN CORPUSCULAR HGB 26.7 pg (27.0-31.0); MEAN CORPUSCULAR HGB CONC 31.3 g/dl (33.0-37.0); MEAN PLATELET VOLUME 9.5 fl (9.6-12.3); MONO # 0.6 10*3/uL (0.1-1.0); MONO % 8.5 % (3.0-9.0); NEUT # 5.9 10*3/uL (2.3-7.9); NEUT % 84.4 % (47.0-73.0); PLATELET COUNT AUTOMATED 215 10*3/uL (130-400); RED CELL DISTRI WIDTH 13.6 % (0-14.5)
[2020-07-12 15:54] LABS: ACT PARTIAL THROMBO TIME 29.3 SECONDS (20.0-32.1)
[2020-07-12 16:01] LABS: ALKALINE PHOSPHATASE 76 U/L (45-117); BUN 31 mg/dl (7-24); CHLORIDE 96 mmol/L (98-107); CREATININE 1.43 mg/dL (0.55-1.02); POTASSIUM 4.1 mmol/L (3.5-5.1); SGOT/AST 16 IU/L (3-35); SGPT/ALT 17 U/L (12-78); SODIUM 133 mmol/L (136-145); TROPONIN I < 0.015 ng/ml (<0.045)
--- NOTE | 2020-07-12 19:10 | NUR ---
REPORT FROM HARITHA CHACON AT THIS TIME
--- NOTE | 2020-07-12 19:13 | NUR ---
PATIENT REPORT TO CEASAR Infante RN.
--- NOTE | 2020-07-12 21:45 | NUR ---
CONSULT CALLED TO DR MEJÍA ANSWERING SERVICE
--- NOTE | 2020-07-12 21:46 | NUR ---
ATTEMPTS TO REACH DR CRUMP X1 UNSUCCESSFUL AT THIS TIME
--- NOTE | 2020-07-12 21:47 | NUR ---
DR MEJÍA RETURNED PHONE CALL AND IS AWARE OF CONSULT. NO NEW ORDERS RECEIVED.
--- NOTE | 2020-07-12 22:27 | NUR ---
SPOKE WITH DR CRUMP AT THIS TIME FOR CONSULT. NO NEW ORDERS RECEIVED.
[2020-07-12 23:15] VITALS: BP 108/88
--- NOTE | 2020-07-12 23:46 | NUR ---
DR MEJÍA CONTACTED REGARDING PATIENT REFUSING TO TAKE DOXYCYCLINE.
[2020-07-13 05:25] LABS: ALBUMIN 2.7 gm/dl (3.1-4.5); CREATININE 1.4 mg/dL (0.55-1.02); POTASSIUM 3.8 mmol/L (3.5-5.1); TOTAL PROTEIN 6.3 gm/dL (6.4-8.2)
--- NOTE | 2020-07-13 05:43 | NUR ---
PT IS SLEEPING IN ROOM. NO SIGNS OF ACUTE DISTRESS NOTED AT THIS TIME. VSS STABLE.
[2020-07-13 05:44] VITALS: BP 112/84
[2020-07-13 06:08] LABS: HEMATOCRIT 25.8 % (37.0-47.0); LYMPH # 1.1 10*3/uL (1.3-4.4); LYMPH % 15.5 % (27.0-41.0); MEAN CELL VOLUME 85.1 fl (81.0-99.0); MEAN CORPUSCULAR HGB 26.7 pg (27.0-31.0); MEAN CORPUSCULAR HGB CONC 31.4 g/dl (33.0-37.0); MEAN PLATELET VOLUME 10.2 fl (9.6-12.3); MONO # 0.7 10*3/uL (0.1-1.0); MONO % 9.9 % (3.0-9.0); NEUT % 74.3 % (47.0-73.0); PLATELET COUNT AUTOMATED 198 10*3/uL (130-400); RED BLOOD COUNT 3.03 10*6/uL (4.10-5.10); RED CELL DISTRI WIDTH 13.9 % (0-14.5); WHITE BLOOD COUNT 6.8 10*3/uL (4.8-10.8)
[2020-07-13 07:30] VITALS: BP 112/64
[2020-07-13 07:40] LABS: FERRITIN 196.5 ng/mL (10.0-291.0); VITAMIN D, 25-HYDROXY 32.9 ng/mL (30-100)
--- NOTE | 2020-07-13 11:35 | NUR ---
RECEIVED REPORT FROM ER. WILL GET PATIENT ONCE CT CHEST IS COMPLETED.
[2020-07-13 12:00] VITALS: BP 147/46
[2020-07-13 12:20] VITALS: BP 147/46
--- NOTE | 2020-07-13 12:20 | NUR ---
A 79, admitted to , under the services of MADDI Rodríguez DO with a diagnosis of COVID +,BACTREMIA. Chief complaint is SHORT OF BREATH. Patient arrived via stretcher from ER. Monitor applied. Initial assessment completed. Vital signs taken and recorded. MADDI RODRÍGUEZ DO notified of admission to the unit. Orders received. See assessment for past medical history, medications and allergies. Patient and/or family oriented to unit. [facility]. Clothing/patient valuable form completed. HIRO RODRIGUEZ
--- NOTE | 2020-07-13 12:26 | NUR ---
Two attempts via telephone to talk with patient, unable to contact at this time. Will continue to try to reach patient.
--- NOTE | 2020-07-13 13:19 | NUR ---
Marketing And Public Relations Manager in to talk to patient. Patient states lives at home with alone. There are 0 steps in the home. Physician: Dr. Mclean Pharmacy: [facility] Home health services: none right now/previous [facility] Patient's level of ADLs: MINIMAL ASSIST Patient has working utilities: yes DME: walker, cane, rollator, oxygen from [employer]/uses 3 liters at home. also has nebulizer. Follow-up physician's appointment after d/c: hospitalists office Does patient want to access PORTAL?: no Discharge plan Patient stating she will go home upon discharge but is unsure whether or not she will need [facility]. She said she had [facility] in the past and was discharged from them in April or May. Will see how she feels at discharge. GERDA PONCE
[2020-07-13] MEDS ORDERED: CARVEDILOL6.25 MG PO (13:48)
[2020-07-13 16:00] VITALS: BP 102/46
--- NOTE | 2020-07-13 19:35 | NUR ---
24 HR CHART CHECK COMPLETE.
[2020-07-13 20:00] VITALS: BP 152/55
[2020-07-14] VITALS: BP 167/60
[2020-07-14 06:31] LABS: HEMATOCRIT 26.4 % (37.0-47.0); LYMPH # 1.1 10*3/uL (1.3-4.4); LYMPH % 27.8 % (27.0-41.0); MEAN CELL VOLUME 85.2 fl (81.0-99.0); MEAN CORPUSCULAR HGB 26.8 pg (27.0-31.0); MEAN CORPUSCULAR HGB CONC 31.4 g/dl (33.0-37.0); MEAN PLATELET VOLUME 9.7 fl (9.6-12.3); MONO # 0.6 10*3/uL (0.1-1.0); MONO % 14.9 % (3.0-9.0); NEUT # 2.2 10*3/uL (2.3-7.9); PLATELET COUNT AUTOMATED 152 10*3/uL (130-400); RED CELL DISTRI WIDTH 14.1 % (0-14.5); WHITE BLOOD COUNT 3.9 10*3/uL (4.8-10.8)
[2020-07-14 06:48] LABS: ALBUMIN 2.4 gm/dl (3.1-4.5); CREATININE 1.53 mg/dL (0.55-1.02); POTASSIUM 3.6 mmol/L (3.5-5.1); TOTAL PROTEIN 6.2 gm/dL (6.4-8.2)
[2020-07-14 08:00] VITALS: BP 139/68
--- NOTE | 2020-07-14 08:07 | NUR ---
Nursing screen received and chart reviewed. Patient admitted for bactermia and positive COVID-19. If patient has a decline in ADLs, transfers, or mobility, please consult OT. Thank you. Norma Frias, OTR/L
--- NOTE | 2020-07-14 08:09 | NUR ---
PHYSICAL THERAPY Nursing screen received and chart reviewed. Patient admitted for bactermia and positive COVID-19. If patient has a decline in functional mobility below baseline, please consult PT. Thank you. Stefafnie Abreu PT
--- NOTE | 2020-07-14 09:53 | NUR ---
Attempted to contact patient via phone due to covid precautions , line in busy will try again later.
[2020-07-14 12:00] VITALS: BP 134/69
--- NOTE | 2020-07-14 14:06 | NUR ---
Called patient on her room phone due to Covid precautions to discuss discharge planning. She stated when she is discharged she would like to go home and have a new order for home health. She stated she has had [facility] in the past and would like to have them again on discharge.
[2020-07-14 16:00] VITALS: BP 95/47
--- NOTE | 2020-07-14 19:00 | NUR ---
ARRIVED ON SHIFT, REPORT RECEIVED FROM OFFGOING NURSE, ASSUMED CARE OF PATIENT.
[2020-07-14 20:00] VITALS: BP 78/41
[2020-07-15] VITALS: BP 90/50
--- NOTE | 2020-07-15 03:16 | NUR ---
24 HR chart check completed.
--- NOTE | 2020-07-15 03:17 | NUR ---
PATIENT RESTING QUIETLY WITH EYES CLOSED, RESPIRATIONS EVEN AND NON-LABORED, BED IN LOW POSITION, SIDE RAILS UP X 2 FOR TURNING AND REPOSITIONING, CALL LIGHT WITHIN REACH.
[2020-07-15 06:18] LABS: BASO % 0.2 % (0.0-1.0); EOS % 0.2 % (1.0-4.0); HEMATOCRIT 30.1 % (37.0-47.0); LYMPH # 1.7 10*3/uL (1.3-4.4); LYMPH % 34.3 % (27.0-41.0); MEAN CELL VOLUME 85.3 fl (81.0-99.0); MEAN CORPUSCULAR HGB 26.6 pg (27.0-31.0); MEAN CORPUSCULAR HGB CONC 31.2 g/dl (33.0-37.0); MEAN PLATELET VOLUME 10.8 fl (9.6-12.3); MONO # 0.7 10*3/uL (0.1-1.0); MONO % 13.6 % (3.0-9.0); NEUT # 2.5 10*3/uL (2.3-7.9); NEUT % 50.5 % (47.0-73.0); PLATELET COUNT AUTOMATED 192 10*3/uL (130-400); RED BLOOD COUNT 3.53 10*6/uL (4.10-5.10); RED CELL DISTRI WIDTH 14.2 % (0-14.5); WHITE BLOOD COUNT 4.9 10*3/uL (4.8-10.8)
[2020-07-15 06:34] LABS: ALBUMIN 2.5 gm/dl (3.1-4.5); CREATININE 2.04 mg/dL (0.55-1.02); POTASSIUM 3.3 mmol/L (3.5-5.1); TOTAL PROTEIN 6.3 gm/dL (6.4-8.2)
[2020-07-15 09:00] VITALS: BP 94/48
[2020-07-15 12:00] VITALS: BP 102/50
[2020-07-15 16:00] VITALS: BP 96/60
[2020-07-15 20:00] VITALS: BP 108/56
--- NOTE | 2020-07-15 20:08 | NUR ---
ORDERS REC'D FROM DR CRUMP; GIVE 250CC/1 HR, CHECK BP AND THEN CALL WITH RESULTS
--- NOTE | 2020-07-15 22:07 | NUR ---
DR CRUMP NOTIFIED OF BP READINGS PRE AND POST IVF, NEW ORDERS FOR NS @70/HR X24 HOURS REC'D.
[2020-07-16] VITALS: BP 112/62
--- NOTE | 2020-07-16 02:00 | NUR ---
Patient resting quietly with no c/o discomfort. Respirations easy and regular. Vital signs stable. No overt distress. DEVEN SEGOVIA
[2020-07-16 06:17] LABS: BASO % 0.2 % (0.0-1.0); EOS # 0.1 10*3/uL (0.0-0.4); EOS % 1.3 % (1.0-4.0); HEMATOCRIT 28.3 % (37.0-47.0); LYMPH # 1.7 10*3/uL (1.3-4.4); LYMPH % 29.2 % (27.0-41.0); MEAN CELL VOLUME 83.5 fl (81.0-99.0); MEAN CORPUSCULAR HGB 26.8 pg (27.0-31.0); MEAN CORPUSCULAR HGB CONC 32.2 g/dl (33.0-37.0); MEAN PLATELET VOLUME 10.3 fl (9.6-12.3); MONO # 0.8 10*3/uL (0.1-1.0); MONO % 13.3 % (3.0-9.0); NEUT # 3.3 10*3/uL (2.3-7.9); RED BLOOD COUNT 3.39 10*6/uL (4.10-5.10); RED CELL DISTRI WIDTH 14.2 % (0-14.5); WHITE BLOOD COUNT 5.9 10*3/uL (4.8-10.8)
[2020-07-16 06:18] LABS: ALBUMIN 2.4 gm/dl (3.1-4.5); CREATININE 1.99 mg/dL (0.55-1.02); POTASSIUM 3.3 mmol/L (3.5-5.1); TOTAL PROTEIN 6.4 gm/dL (6.4-8.2)
[2020-07-16 06:19] LABS: PLATELET COUNT AUTOMATED 260 10*3/uL (130-400)
[2020-07-16 08:00] VITALS: BP 119/51
[2020-07-16 12:00] VITALS: BP 122/58
[2020-07-16 15:47] LABS: URINE CHLORIDE, RANDOM < 10 mmol/L
[2020-07-16 16:00] VITALS: BP 127/83
[2020-07-16 20:00] VITALS: BP 118/54
--- NOTE | 2020-07-16 21:45 | NUR ---
PATIENT RESTING IN BED WITH NO S/S OF DISTRESS. BED IN LOWEST POSITION, CALL LIGHT IN REACH
--- NOTE | 2020-07-16 21:53 | NUR ---
MEDICATED WITH PRN MAALOX FOR C/O HEARTBURN. WILL MONITOR
--- NOTE | 2020-07-16 22:53 | NUR ---
MEDICATION EFFECTIVE PER PATIENT
[2020-07-17] VITALS: BP 128/65
--- NOTE | 2020-07-17 03:44 | NUR ---
24 HR chart check completed.
--- NOTE | 2020-07-17 06:39 | NUR ---
PATIENT RESTED WELL THROUGHOUT THE NIGHT WITH NO COMPLAINTS. BED IN LOWEST POSITION, CALL LIGHT IN REACH
[2020-07-17 08:00] VITALS: BP 132/68
--- NOTE | 2020-07-17 08:00 | NUR ---
PATIENT RESTING IN BED. NO COMPLAINTS/NEEDS AT THIS TIME. RESPS EASY AND REGULAR. DENIES ANY SYMPTOMS. CALL LIGHT IN REACH.
[2020-07-17 12:00] VITALS: BP 120/66
--- NOTE | 2020-07-17 12:04 | NUR ---
Shift chart check completed.
--- NOTE | 2020-07-17 14:50 | NUR ---
Patient is discharged to home with [facility]. Recieved home health order, faxed order, face to face and referral. Notified Gaby patient is discharged today.
--- NOTE | 2020-07-17 16:00 | NUR ---
Discharge instructions reviewed with patient/family. Patient receptive and verbalizes understanding. Follow-up care arranged. Written instructions given to patient/family. IV REMOVED. TOBY OSBORNE
== END 2020-07-17 16:00 | disposition home health service (06) | DRG 177 ==
LOC: ED 14:38 → 4E 18:49 → EDHOLD 18:49 → 4E 07-13 10:52
PROVIDERS: Emergency Medicine; Internal Medicine; Nurse Practitioner; ADMIT Internal Medicine; ATTEND Internal Medicine
PROC: XW033E5 Introduction of Remdesivir Anti-infective into Peripheral Vein, Percutaneous Approach, New Technology Group 5 (ICD-10-PCS; principal; 2020-07-14)
DX: U07.1 COVID-19 (principal); J12.89 Other viral pneumonia; E87.1 Hypo-osmolality and hyponatremia; J96.11 Chronic respiratory failure with hypoxia; E27.40 Unspecified adrenocortical insufficiency; I13.0 Hypertensive heart and chronic kidney disease with heart failure and stage 1 through stage 4 chronic kidney disease, or unspecified chronic kidney disease; L03.115 Cellulitis of right lower limb; L03.116 Cellulitis of left lower limb; I50.22 Chronic systolic (congestive) heart failure; N17.9 Acute kidney failure, unspecified; J45.901 Unspecified asthma with (acute) exacerbation; D68.59 Other primary thrombophilia; Z68.44 Body mass index [BMI] 60.0-69.9, adult; D72.810 Lymphocytopenia; E87.8 Other disorders of electrolyte and fluid balance, not elsewhere classified; R73.9 Hyperglycemia, unspecified; N18.32 Chronic kidney disease, stage 3b; K21.9 Gastro-esophageal reflux disease without esophagitis; E66.01 Morbid (severe) obesity due to excess calories; F41.9 Anxiety disorder, unspecified; I87.2 Venous insufficiency (chronic) (peripheral); I95.9 Hypotension, unspecified; B95.8 Unspecified staphylococcus as the cause of diseases classified elsewhere; E87.5 Hyperkalemia; M19.90 Unspecified osteoarthritis, unspecified site; F41.1 Generalized anxiety disorder; F32.9 Major depressive disorder, single episode, unspecified; K57.90 Diverticulosis of intestine, part unspecified, without perforation or abscess without bleeding; I48.91 Unspecified atrial fibrillation; Z99.81 Dependence on supplemental oxygen; Z88.2 Allergy status to sulfonamides; Z91.041 Radiographic dye allergy status; Z88.5 Allergy status to narcotic agent; Z88.6 Allergy status to analgesic agent; Z88.8 Allergy status to other drugs, medicaments and biological substances; Z88.1 Allergy status to other antibiotic agents; Z79.899 Other long term (current) drug therapy; Z90.710 Acquired absence of both cervix and uterus; Z82.49 Family history of ischemic heart disease and other diseases of the circulatory system; Z90.49 Acquired absence of other specified parts of digestive tract; Z80.0 Family history of malignant neoplasm of digestive organs; Z79.51 Long term (current) use of inhaled steroids; Z79.1 Long term (current) use of non-steroidal anti-inflammatories (NSAID); Z79.82 Long term (current) use of aspirin

== ENCOUNTER → 2021-02-02 | Outpatient (CLI) | payer MEDICARE, OTHER ==
[~2021-02-02] MED LIST changes: +CARVEDILOL6.25 MG PO
== END ==
LOC: WOUNDCARE 01:49
PROVIDERS: ATTEND Nurse Practitioner
DX: L97.812 Non-pressure chronic ulcer of other part of right lower leg with fat layer exposed (principal); I13.0 Hypertensive heart and chronic kidney disease with heart failure and stage 1 through stage 4 chronic kidney disease, or unspecified chronic kidney disease; I50.9 Heart failure, unspecified; N18.9 Chronic kidney disease, unspecified; I87.2 Venous insufficiency (chronic) (peripheral); I73.9 Peripheral vascular disease, unspecified; R22.43 Localized swelling, mass and lump, lower limb, bilateral; E27.40 Unspecified adrenocortical insufficiency; J45.909 Unspecified asthma, uncomplicated; I48.91 Unspecified atrial fibrillation; J44.9 Chronic obstructive pulmonary disease, unspecified; K21.9 Gastro-esophageal reflux disease without esophagitis; M19.90 Unspecified osteoarthritis, unspecified site; F41.9 Anxiety disorder, unspecified; Z85.038 Personal history of other malignant neoplasm of large intestine; Z90.710 Acquired absence of both cervix and uterus

== ENCOUNTER → 2021-02-16 | Outpatient (CLI) | payer MEDICARE, OTHER | LOC: WOUNDCARE 01:05 | PROVIDERS: ATTEND Nurse Practitioner | DX: L97.812 Non-pressure chronic ulcer of other part of right lower leg with fat layer exposed (principal); L97.212 Non-pressure chronic ulcer of right calf with fat layer exposed; I13.0 Hypertensive heart and chronic kidney disease with heart failure and stage 1 through stage 4 chronic kidney disease, or unspecified chronic kidney disease; I50.9 Heart failure, unspecified; N18.9 Chronic kidney disease, unspecified; I87.2 Venous insufficiency (chronic) (peripheral); I73.9 Peripheral vascular disease, unspecified; R22.43 Localized swelling, mass and lump, lower limb, bilateral; E27.40 Unspecified adrenocortical insufficiency; J45.909 Unspecified asthma, uncomplicated; I48.91 Unspecified atrial fibrillation; J44.9 Chronic obstructive pulmonary disease, unspecified; K21.9 Gastro-esophageal reflux disease without esophagitis; M19.90 Unspecified osteoarthritis, unspecified site; F41.9 Anxiety disorder, unspecified; Z85.038 Personal history of other malignant neoplasm of large intestine; Z90.710 Acquired absence of both cervix and uterus ==

== ENCOUNTER → 2021-03-02 | Outpatient (CLI) | payer MEDICARE, OTHER | LOC: WOUNDCARE 01:13 | PROVIDERS: ATTEND Nurse Practitioner | DX: L97.812 Non-pressure chronic ulcer of other part of right lower leg with fat layer exposed (principal); L97.212 Non-pressure chronic ulcer of right calf with fat layer exposed; I13.0 Hypertensive heart and chronic kidney disease with heart failure and stage 1 through stage 4 chronic kidney disease, or unspecified chronic kidney disease; I50.9 Heart failure, unspecified; N18.9 Chronic kidney disease, unspecified; I87.2 Venous insufficiency (chronic) (peripheral); I73.9 Peripheral vascular disease, unspecified; R22.43 Localized swelling, mass and lump, lower limb, bilateral; E27.40 Unspecified adrenocortical insufficiency; J45.909 Unspecified asthma, uncomplicated; I48.91 Unspecified atrial fibrillation; J44.9 Chronic obstructive pulmonary disease, unspecified; K21.9 Gastro-esophageal reflux disease without esophagitis; M19.90 Unspecified osteoarthritis, unspecified site; F41.9 Anxiety disorder, unspecified; Z85.038 Personal history of other malignant neoplasm of large intestine; Z90.710 Acquired absence of both cervix and uterus; Z99.81 Dependence on supplemental oxygen ==

== ENCOUNTER → 2021-04-25 | Outpatient (CLI) | payer MEDICARE, OTHER | LOC: WOUNDCARE 02:44 | PROVIDERS: ATTEND Nurse Practitioner | DX: L97.812 Non-pressure chronic ulcer of other part of right lower leg with fat layer exposed (principal); L97.212 Non-pressure chronic ulcer of right calf with fat layer exposed; I13.0 Hypertensive heart and chronic kidney disease with heart failure and stage 1 through stage 4 chronic kidney disease, or unspecified chronic kidney disease; I50.9 Heart failure, unspecified; N18.9 Chronic kidney disease, unspecified; I87.2 Venous insufficiency (chronic) (peripheral); I73.9 Peripheral vascular disease, unspecified; R22.43 Localized swelling, mass and lump, lower limb, bilateral; E27.40 Unspecified adrenocortical insufficiency; J45.909 Unspecified asthma, uncomplicated; I48.91 Unspecified atrial fibrillation; J44.9 Chronic obstructive pulmonary disease, unspecified; K21.9 Gastro-esophageal reflux disease without esophagitis; M19.90 Unspecified osteoarthritis, unspecified site; F41.9 Anxiety disorder, unspecified; Z85.038 Personal history of other malignant neoplasm of large intestine; Z90.710 Acquired absence of both cervix and uterus; Z99.81 Dependence on supplemental oxygen ==

== ENCOUNTER → 2021-05-02 | Outpatient (CLI) | payer MEDICARE, OTHER | LOC: WOUNDCARE 00:35 | PROVIDERS: ATTEND Nurse Practitioner | DX: L97.812 Non-pressure chronic ulcer of other part of right lower leg with fat layer exposed (principal); L97.212 Non-pressure chronic ulcer of right calf with fat layer exposed; I13.0 Hypertensive heart and chronic kidney disease with heart failure and stage 1 through stage 4 chronic kidney disease, or unspecified chronic kidney disease; I50.9 Heart failure, unspecified; N18.9 Chronic kidney disease, unspecified; I87.2 Venous insufficiency (chronic) (peripheral); I73.9 Peripheral vascular disease, unspecified; R22.43 Localized swelling, mass and lump, lower limb, bilateral; E27.40 Unspecified adrenocortical insufficiency; J45.909 Unspecified asthma, uncomplicated; I48.91 Unspecified atrial fibrillation; J44.9 Chronic obstructive pulmonary disease, unspecified; K21.9 Gastro-esophageal reflux disease without esophagitis; M19.90 Unspecified osteoarthritis, unspecified site; F41.9 Anxiety disorder, unspecified; Z85.038 Personal history of other malignant neoplasm of large intestine; Z90.710 Acquired absence of both cervix and uterus; Z99.81 Dependence on supplemental oxygen ==

== ENCOUNTER 2021-07-26 10:49 | Inpatient (IN) | payer MEDICARE, OTHER ==
[~2021-07-26] VITALS: Ht 160 cm; Wt 115.8 kg
[2021-07-26] VITALS (11 sets, daily range): BP systolic 90–116; BP diastolic 36–78
[2021-07-26 12:02] LABS: BASO % 0.2 % (0.0-1.0); EOS # 0.1 10*3/uL (0.0-0.4); EOS % 0.5 % (1.0-4.0); HEMATOCRIT 23.1 % (37.0-47.0); LYMPH # 0.6 10*3/uL (1.3-4.4); LYMPH % 5.2 % (27.0-41.0); MEAN CELL VOLUME 94.3 fl (81.0-99.0); MEAN CORPUSCULAR HGB 26.9 pg (27.0-31.0); MEAN CORPUSCULAR HGB CONC 28.6 g/dl (33.0-37.0); MEAN PLATELET VOLUME 9.7 fl (9.6-12.3); MONO # 1.2 10*3/uL (0.1-1.0); MONO % 10.4 % (3.0-9.0); NEUT # 9.8 10*3/uL (2.3-7.9); NEUT % 83.1 % (47.0-73.0); PLATELET COUNT AUTOMATED 232 10*3/uL (130-400); RED BLOOD COUNT 2.45 10*6/uL (4.10-5.10); RED CELL DISTRI WIDTH 15.8 % (0-14.5); WHITE BLOOD COUNT 11.8 10*3/uL (4.8-10.8)
[2021-07-26 12:17] LABS: ALBUMIN 2.1 gm/dl (3.1-4.5); CREATININE 1.57 mg/dL (0.55-1.02)
[2021-07-26 12:18] LABS: BASOPHILS 2 % (0-1); TOTAL CELLS COUNTED 100 #CELLS
[2021-07-26 12:19] LABS: PLATELET SUFFICIENCY NORMAL (NORMAL); STOMATOCYTE FEW
[2021-07-26 12:22] LABS: ACT PARTIAL THROMBO TIME 32.1 SECONDS (20.0-32.1); INTERNATIONAL NORM RATIO 1.1 (2.0-3.5)
[2021-07-26 21:06] LABS: BILIRUBIN Negative (Negative); BLOOD 3+ (Negative); CLARITY Cloudy (Clear); COLOR Dark Yellow (Yellow); GLUCOSE Negative (Negative); KETONE Trace (Negative); LEUKO ESTERASE 3+ (Negative); NITRITE Negative (Negative); SPECIFIC GRAVITY 1.025 (1.001-1.030)
[2021-07-26 21:25] LABS: BACTERIA 4+
[2021-07-26 21:27] LABS: WBC 41-50 wbc/hpf (0-5)
[2021-07-27] VITALS (7 sets, daily range): BP systolic 90–109; BP diastolic 42–62
[2021-07-27 07:08] LABS: BASO # 0.1 10*3/uL (0.0-0.1); BASO % 0.4 % (0.0-1.0); EOS # 0.3 10*3/uL (0.0-0.4); EOS % 2.9 % (1.0-4.0); HEMATOCRIT 24.2 % (37.0-47.0); LYMPH # 1.2 10*3/uL (1.3-4.4); LYMPH % 10.9 % (27.0-41.0); MEAN CORPUSCULAR HGB 27.4 pg (27.0-31.0); MEAN CORPUSCULAR HGB CONC 29.8 g/dl (33.0-37.0); MEAN PLATELET VOLUME 9.6 fl (9.6-12.3); MONO # 1.5 10*3/uL (0.1-1.0); NEUT # 8.1 10*3/uL (2.3-7.9); NEUT % 72.4 % (47.0-73.0); PLATELET COUNT AUTOMATED 236 10*3/uL (130-400); RED BLOOD COUNT 2.63 10*6/uL (4.10-5.10); RED CELL DISTRI WIDTH 15.7 % (0-14.5); WHITE BLOOD COUNT 11.1 10*3/uL (4.8-10.8)
[2021-07-27 07:20] LABS: INTERNATIONAL NORM RATIO 1.1 (2.0-3.5)
[2021-07-27 07:24] LABS: ALBUMIN 1.8 gm/dl (3.1-4.5); CREATININE 1.38 mg/dL (0.55-1.02); TOTAL PROTEIN 5.9 gm/dL (6.4-8.2)
[2021-07-28] VITALS: BP 94/50
[2021-07-28 06:15] LABS: BASO % 0.1 % (0.0-1.0); EOS # 0.3 10*3/uL (0.0-0.4); EOS % 2.6 % (1.0-4.0); HEMATOCRIT 24.6 % (37.0-47.0); LYMPH # 1.2 10*3/uL (1.3-4.4); LYMPH % 11.9 % (27.0-41.0); MEAN CORPUSCULAR HGB 27.4 pg (27.0-31.0); MEAN CORPUSCULAR HGB CONC 28.9 g/dl (33.0-37.0); MEAN PLATELET VOLUME 9.2 fl (9.6-12.3); MONO # 1.3 10*3/uL (0.1-1.0); MONO % 13.1 % (3.0-9.0); NEUT # 7.2 10*3/uL (2.3-7.9); NEUT % 71.7 % (47.0-73.0); PLATELET COUNT AUTOMATED 209 10*3/uL (130-400); RED BLOOD COUNT 2.59 10*6/uL (4.10-5.10); RED CELL DISTRI WIDTH 15.6 % (0-14.5); WHITE BLOOD COUNT 10.1 10*3/uL (4.8-10.8)
[2021-07-28 06:40] LABS: ALBUMIN 1.8 gm/dl (3.1-4.5); CREATININE 1.69 mg/dL (0.55-1.02); POTASSIUM 3.9 mmol/L (3.5-5.1); TOTAL PROTEIN 5.9 gm/dL (6.4-8.2)
[2021-07-28 08:00] VITALS: BP 117/63
[2021-07-28 12:00] VITALS: BP 96/56
[2021-07-28 16:00] VITALS: BP 94/60
[2021-07-28 20:00] VITALS: BP 92/54
[2021-07-29] VITALS: BP 92/52
[2021-07-29 06:36] LABS: BASO % 0.3 % (0.0-1.0); EOS # 0.4 10*3/uL (0.0-0.4); EOS % 3.5 % (1.0-4.0); HEMATOCRIT 24.6 % (37.0-47.0); LYMPH # 1.1 10*3/uL (1.3-4.4); LYMPH % 10.3 % (27.0-41.0); MEAN CELL VOLUME 93.5 fl (81.0-99.0); MEAN CORPUSCULAR HGB 27.4 pg (27.0-31.0); MEAN CORPUSCULAR HGB CONC 29.3 g/dl (33.0-37.0); MEAN PLATELET VOLUME 9.3 fl (9.6-12.3); MONO % 9.5 % (3.0-9.0); NEUT # 7.9 10*3/uL (2.3-7.9); PLATELET COUNT AUTOMATED 229 10*3/uL (130-400); RED BLOOD COUNT 2.63 10*6/uL (4.10-5.10); RED CELL DISTRI WIDTH 15.5 % (0-14.5); WHITE BLOOD COUNT 10.4 10*3/uL (4.8-10.8)
[2021-07-29 06:52] LABS: ALBUMIN 1.7 gm/dl (3.1-4.5); CREATININE 1.66 mg/dL (0.55-1.02); TOTAL PROTEIN 5.9 gm/dL (6.4-8.2)
[2021-07-29 08:00] VITALS: BP 110/39
[2021-07-29 12:00] VITALS: BP 104/40
[2021-07-29 16:00] VITALS: BP 117/50
[2021-07-29 20:00] VITALS: BP 134/65
[2021-07-30 00:24] VITALS: BP 128/62
[2021-07-30 07:04] LABS: HEMATOCRIT 25.7 % (37.0-47.0); LYMPH # 0.8 10*3/uL (1.3-4.4); LYMPH % 9.3 % (27.0-41.0); MEAN CELL VOLUME 90.5 fl (81.0-99.0); MEAN CORPUSCULAR HGB 27.1 pg (27.0-31.0); MEAN PLATELET VOLUME 9.3 fl (9.6-12.3); MONO # 0.7 10*3/uL (0.1-1.0); MONO % 7.9 % (3.0-9.0); NEUT # 6.8 10*3/uL (2.3-7.9); NEUT % 82.2 % (47.0-73.0); PLATELET COUNT AUTOMATED 290 10*3/uL (130-400); RED BLOOD COUNT 2.84 10*6/uL (4.10-5.10); RED CELL DISTRI WIDTH 15.3 % (0-14.5); WHITE BLOOD COUNT 8.3 10*3/uL (4.8-10.8)
[2021-07-30 07:20] LABS: ALBUMIN 1.8 gm/dl (3.1-4.5); CREATININE 1.49 mg/dL (0.55-1.02); POTASSIUM 3.8 mmol/L (3.5-5.1); TOTAL PROTEIN 6.5 gm/dL (6.4-8.2)
[2021-07-30 08:00] VITALS: BP 142/66
[2021-07-30 12:00] VITALS: BP 126/56
[2021-07-30 16:00] VITALS: BP 135/61
[2021-07-30 20:00] VITALS: BP 128/70
[2021-07-31] VITALS: BP 133/72
[2021-07-31 07:33] LABS: BASO % 0.1 % (0.0-1.0); HEMATOCRIT 23.8 % (37.0-47.0); LYMPH # 0.9 10*3/uL (1.3-4.4); LYMPH % 12.6 % (27.0-41.0); MEAN CELL VOLUME 89.5 fl (81.0-99.0); MEAN CORPUSCULAR HGB 26.3 pg (27.0-31.0); MEAN CORPUSCULAR HGB CONC 29.4 g/dl (33.0-37.0); MEAN PLATELET VOLUME 9.6 fl (9.6-12.3); MONO # 0.7 10*3/uL (0.1-1.0); MONO % 9.9 % (3.0-9.0); NEUT # 5.2 10*3/uL (2.3-7.9); NEUT % 76.7 % (47.0-73.0); PLATELET COUNT AUTOMATED 298 10*3/uL (130-400); RED BLOOD COUNT 2.66 10*6/uL (4.10-5.10); RED CELL DISTRI WIDTH 15.3 % (0-14.5); WHITE BLOOD COUNT 6.7 10*3/uL (4.8-10.8)
[2021-07-31 07:47] LABS: CREATININE 1.5 mg/dL (0.55-1.02); POTASSIUM 3.6 mmol/L (3.5-5.1)
[2021-07-31 08:07] VITALS: BP 130/82
[2021-07-31 16:00] VITALS: BP 146/59
[2021-07-31 20:00] VITALS: BP 146/69
[2021-08-01] VITALS: BP 141/61
[2021-08-01 06:30] LABS: HEMATOCRIT 26.2 % (37.0-47.0); LYMPH % 13.5 % (27.0-41.0); MEAN CELL VOLUME 90.7 fl (81.0-99.0); MEAN CORPUSCULAR HGB CONC 29.8 g/dl (33.0-37.0); MONO # 0.7 10*3/uL (0.1-1.0); MONO % 8.7 % (3.0-9.0); NEUT # 5.9 10*3/uL (2.3-7.9); NEUT % 77.3 % (47.0-73.0); PLATELET COUNT AUTOMATED 307 10*3/uL (130-400); RED BLOOD COUNT 2.89 10*6/uL (4.10-5.10); RED CELL DISTRI WIDTH 15.4 % (0-14.5); WHITE BLOOD COUNT 7.6 10*3/uL (4.8-10.8)
[2021-08-01 07:00] LABS: CREATININE 1.56 mg/dL (0.55-1.02); POTASSIUM 3.8 mmol/L (3.5-5.1)
[2021-08-01 08:00] VITALS: BP 126/62
[2021-08-01 12:00] VITALS: BP 121/68
[2021-08-01 16:00] VITALS: BP 128/60
[2021-08-01 20:00] VITALS: BP 123/61
[2021-08-02] VITALS: BP 136/60
[2021-08-02 06:36] LABS: BASO % 0.2 % (0.0-1.0); EOS # 0.4 10*3/uL (0.0-0.4); EOS % 4.3 % (1.0-4.0); HEMATOCRIT 26.8 % (37.0-47.0); LYMPH # 2.1 10*3/uL (1.3-4.4); MEAN CELL VOLUME 89.3 fl (81.0-99.0); MEAN CORPUSCULAR HGB 26.7 pg (27.0-31.0); MEAN CORPUSCULAR HGB CONC 29.9 g/dl (33.0-37.0); MEAN PLATELET VOLUME 9.2 fl (9.6-12.3); MONO % 11.2 % (3.0-9.0); NEUT # 5.4 10*3/uL (2.3-7.9); NEUT % 60.7 % (47.0-73.0); PLATELET COUNT AUTOMATED 315 10*3/uL (130-400); RED CELL DISTRI WIDTH 15.2 % (0-14.5); WHITE BLOOD COUNT 8.9 10*3/uL (4.8-10.8)
[2021-08-02 07:04] LABS: ALBUMIN 1.9 gm/dl (3.1-4.5); CREATININE 1.48 mg/dL (0.55-1.02); POTASSIUM 3.2 mmol/L (3.5-5.1)
[2021-08-02 08:00] VITALS: BP 131/83
[2021-08-02 12:00] VITALS: BP 121/59
[2021-08-02] MEDS ORDERED: LEVOFLOXACIN750 M2 PO (13:05)
[2021-08-02 16:00] VITALS: BP 126/66
[2021-08-02 20:00] VITALS: BP 113/42
[2021-08-03] VITALS: BP 121/60
[2021-08-03 08:00] VITALS: BP 126/90
[2021-08-03 08:06] LABS: BASO % 0.2 % (0.0-1.0); EOS # 0.5 10*3/uL (0.0-0.4); EOS % 5.5 % (1.0-4.0); HEMATOCRIT 28.3 % (37.0-47.0); LYMPH # 2.1 10*3/uL (1.3-4.4); LYMPH % 22.4 % (27.0-41.0); MEAN CELL VOLUME 90.7 fl (81.0-99.0); MEAN CORPUSCULAR HGB 26.9 pg (27.0-31.0); MEAN CORPUSCULAR HGB CONC 29.7 g/dl (33.0-37.0); MONO # 0.8 10*3/uL (0.1-1.0); MONO % 8.7 % (3.0-9.0); NEUT # 5.8 10*3/uL (2.3-7.9); NEUT % 62.8 % (47.0-73.0); PLATELET COUNT AUTOMATED 322 10*3/uL (130-400); RED BLOOD COUNT 3.12 10*6/uL (4.10-5.10); RED CELL DISTRI WIDTH 15.7 % (0-14.5); WHITE BLOOD COUNT 9.2 10*3/uL (4.8-10.8)
[2021-08-03 08:23] LABS: CREATININE 1.44 mg/dL (0.55-1.02); POTASSIUM 3.6 mmol/L (3.5-5.1)
[2021-08-03] MEDS ORDERED: ACETAZOLAMIDE250 MG PO (09:14)
[2021-08-03] MEDS ORDERED: Carafate1 GM PO (09:26)
[2021-08-03 12:00] VITALS: BP 112/60
== END 2021-08-03 13:00 | disposition home health service (06) | DRG 871 ==
LOC: ED 10:49 → 5E 12:34 → EDHOLD 12:34 → 5E 07-27 15:07
PROVIDERS: Hospitalist; Internal Medicine; Nurse Practitioner Family; Registered Nurse; Student in an Organized Health Care Education/Training Program; ADMIT Family Medicine; ATTEND Family Medicine
PROC: 30233N1 Transfusion of Nonautologous Red Blood Cells into Peripheral Vein, Percutaneous Approach (ICD-10-PCS; principal; 2021-07-26)
DX: A41.9 Sepsis, unspecified organism (principal); N17.0 Acute kidney failure with tubular necrosis; E43 Unspecified severe protein-calorie malnutrition; I50.23 Acute on chronic systolic (congestive) heart failure; L03.115 Cellulitis of right lower limb; Z16.12 Extended spectrum beta lactamase (ESBL) resistance; I44.2 Atrioventricular block, complete; N30.00 Acute cystitis without hematuria; J96.11 Chronic respiratory failure with hypoxia; J96.12 Chronic respiratory failure with hypercapnia; L03.116 Cellulitis of left lower limb; M19.90 Unspecified osteoarthritis, unspecified site; K27.9 Peptic ulcer, site unspecified, unspecified as acute or chronic, without hemorrhage or perforation; N18.9 Chronic kidney disease, unspecified; B96.20 Unspecified Escherichia coli [E. coli] as the cause of diseases classified elsewhere; J45.909 Unspecified asthma, uncomplicated; I87.2 Venous insufficiency (chronic) (peripheral); E11.22 Type 2 diabetes mellitus with diabetic chronic kidney disease; I12.9 Hypertensive chronic kidney disease with stage 1 through stage 4 chronic kidney disease, or unspecified chronic kidney disease; E11.65 Type 2 diabetes mellitus with hyperglycemia; I95.9 Hypotension, unspecified; E87.8 Other disorders of electrolyte and fluid balance, not elsewhere classified; J44.9 Chronic obstructive pulmonary disease, unspecified; I48.91 Unspecified atrial fibrillation; E83.51 Hypocalcemia; K21.9 Gastro-esophageal reflux disease without esophagitis; D64.9 Anemia, unspecified; G47.33 Obstructive sleep apnea (adult) (pediatric); G25.81 Restless legs syndrome; Z85.038 Personal history of other malignant neoplasm of large intestine; Z99.81 Dependence on supplemental oxygen; Z90.49 Acquired absence of other specified parts of digestive tract; Z90.710 Acquired absence of both cervix and uterus; Z88.6 Allergy status to analgesic agent; Z88.8 Allergy status to other drugs, medicaments and biological substances; Z88.2 Allergy status to sulfonamides; Z82.49 Family history of ischemic heart disease and other diseases of the circulatory system; Z80.0 Family history of malignant neoplasm of digestive organs; Z79.51 Long term (current) use of inhaled steroids

== ENCOUNTER → 2021-08-13 | Outpatient (CLI) | payer MEDICARE, OTHER ==
[~2021-08-13] MED LIST changes: +ACETAZOLAMIDE250 MG PO; +LEVOFLOXACIN750 M2 PO
== END ==
LOC: WOUNDCARE 02:41
PROVIDERS: ATTEND Nurse Practitioner Family
DX: L85.3 Xerosis cutis (principal); L03.115 Cellulitis of right lower limb; L03.116 Cellulitis of left lower limb; L98.491 Non-pressure chronic ulcer of skin of other sites limited to breakdown of skin; I13.0 Hypertensive heart and chronic kidney disease with heart failure and stage 1 through stage 4 chronic kidney disease, or unspecified chronic kidney disease; I50.9 Heart failure, unspecified; N18.9 Chronic kidney disease, unspecified; I87.2 Venous insufficiency (chronic) (peripheral); I73.9 Peripheral vascular disease, unspecified; E27.40 Unspecified adrenocortical insufficiency; J45.909 Unspecified asthma, uncomplicated; I48.91 Unspecified atrial fibrillation; J44.9 Chronic obstructive pulmonary disease, unspecified; K21.9 Gastro-esophageal reflux disease without esophagitis; M19.90 Unspecified osteoarthritis, unspecified site; F41.9 Anxiety disorder, unspecified; Z85.038 Personal history of other malignant neoplasm of large intestine; Z90.710 Acquired absence of both cervix and uterus; Z99.81 Dependence on supplemental oxygen

== ENCOUNTER 2021-09-25 14:29 | Inpatient (IN) | payer OTHER, MEDICARE ==
[~2021-09-25] VITALS: Ht 157.5 cm; Wt 96.2 kg
[~2021-09-25 14:29] MED LIST changes: +ALPRAZOLAM0.5 M3 PO; +CENTRUM COMPLE1 EACH PO; +CITRACAL + BON1 EACH PO; +COREG12.5 M1 PO; +CORTEF10 M1 PO; +DULERA 200 MCG8.8 GM INH; +FUROSEMIDE10 MG/1 M1 IV; +GAVISCON LIQUI355 ML PO; +IRON18 MG PO; +LEVOFLOXAC750 MG/150 IV; +MYCOLOG CREAM 115 GM T; +POTASSIUM CHLO20 ME4 PO; +VITAMIN D3125 MC1 PO; +ZAFIRLUKAST20 M2 PO
[2021-09-25 16:00] VITALS: BP 90/50
[2021-09-25 20:00] VITALS: BP 70/30
== END 2021-09-26 02:43 | DRG 189 ==
LOC: 4E 14:29
PROVIDERS: ADMIT Student in an Organized Health Care Education/Training Program; ATTEND Student in an Organized Health Care Education/Training Program
DX: J96.22 Acute and chronic respiratory failure with hypercapnia (principal); G93.41 Metabolic encephalopathy; E43 Unspecified severe protein-calorie malnutrition; I50.22 Chronic systolic (congestive) heart failure; I44.2 Atrioventricular block, complete; I13.0 Hypertensive heart and chronic kidney disease with heart failure and stage 1 through stage 4 chronic kidney disease, or unspecified chronic kidney disease; Z66 Do not resuscitate; N18.31 Chronic kidney disease, stage 3a; Z51.5 Encounter for palliative care; D64.9 Anemia, unspecified; R00.0 Tachycardia, unspecified; K21.9 Gastro-esophageal reflux disease without esophagitis; J44.9 Chronic obstructive pulmonary disease, unspecified; I48.91 Unspecified atrial fibrillation; G47.33 Obstructive sleep apnea (adult) (pediatric); F41.0 Panic disorder [episodic paroxysmal anxiety]; I45.10 Unspecified right bundle-branch block; F32.A Depression, unspecified; Z20.822 Contact with and (suspected) exposure to COVID-19; Z99.81 Dependence on supplemental oxygen; Z68.38 Body mass index [BMI] 38.0-38.9, adult